=== PATIENT | female | born 1990 | race Caucasian/White ===

== ENCOUNTER 2019-03-01 00:01 | Emergency (ER) | payer MEDICAID, SELFPAY ==
[2019-03-01 00:18] VITALS: BP 143/91; PULSE 90; RESP 16; TEMP 36.8; BMI 28.3
== END 2019-03-01 01:09 | disposition home or self-care (01) ==
LOC: ER 00:52
PROVIDERS: Emergency Provider Emergency Medicine
DX: Z53.21 Procedure and treatment not carried out due to patient leaving prior to being seen by health care provider (principal)
CPT/HCPCS: 99281

== ENCOUNTER 2019-04-20 14:31 | Emergency (ER) | payer MEDICARE, MEDICAID, SELFPAY ==
[2019-04-20 14:48] VITALS: BP 115/99; PULSE 119; RESP 16; TEMP 37.6; O2SAT 99; BMI 32.1
[2019-04-20 15:13] LABS: Hematocrit 38.6 % (37.0-47.0); Hemoglobin 12.4 g/dL (11.5-15.3); Mean Corpuscular HGB Conc 32.1 g/dL (30.0-36.0); Mean Corpuscular Volume 87.1 fL (81-99); Mean Platelet Volume 10.5 fL (7.4-10.4); Platelet Count 194 10^3/cmm (130-400); Red Blood Count 4.43 10^6/uL (4.1-5.3); Red Cell Distribution Width 12.8 % (12.1-15.1); White Blood Count 9.5 10^3/uL (4.0-10.0)
[2019-04-20 15:32] LABS: Alanine Aminotransferase 25 U/L (0-33); Alkaline Phosphatase 82 IU/L (35-105); Anion Gap 16.8 (5-19); Aspartate Amino Transferase 17 U/L (0-32); Blood Urea Nitrogen 9 mg/dL (6-20); Calcium 9.7 mg/dL (8.5-10.5); Carbon Dioxide 22 mmol/L (22-29); Chloride 99 mmol/L (98-107); Globulin 3.4 g/dL (1.3-4.6); Glomerular Filtration Rate 97.6 mL/min (90-130); Glucose 121 mg/dL (65-115); Lipase 19 U/L (13-60); Potassium 3.8 mmol/L (3.5-5.1); Sodium 134 mmol/L (136-145); Total Bilirubin 0.2 mg/dL (0.15-1.2); Total Protein 7.4 g/dL (6.6-8.7)
[2019-04-20 15:42] LABS: Absolute Segmented Neutrophil 7.2 10/cmm (1.6-7.1); Lymphocytes 20 %; Monocytes Absolute 0.4 10^3/cmm (0.1-0.6); Platelet Estimate Normal (Normal); Segmented Neutrophils 76 %; Total Cells Counted 100 (0-100)
== END 2019-04-20 19:43 | disposition left against medical advice (07) ==
LOC: ER 15:04
PROVIDERS: Emergency Medicine; Emergency Provider Nurse Practitioner Family
DX: R10.9 Unspecified abdominal pain (principal); F17.200 Nicotine dependence, unspecified, uncomplicated; Z53.21 Procedure and treatment not carried out due to patient leaving prior to being seen by health care provider
CPT/HCPCS: 36415; 80053; 83690; 85007; 85027; 99281; 99285

== ENCOUNTER 2019-04-21 22:47 | Emergency (ER) | payer MEDICARE, MEDICAID, SELFPAY ==
[2019-04-21 22:47] VITALS: BP 157/105; PULSE 118; RESP 18; O2SAT 94
[2019-04-21 22:58] VITALS: BP 157/105; PULSE 123; RESP 18; O2SAT 18; BMI 30.2
--- NOTE | 2019-04-21 23:07 | ED_ITS ---
HPI - General Adult General: Chief complaint: Abdominal Pain Stated complaint: abd pain Time Seen by Provider: 04/21/19 22:55 History of Present Illness: HPI narrative: Patient complains about abdominal pain for the last month and a half. History of Crohn's. Possible history of blockage. She says last 3 days is been really bad. Says she is checked into the ER about 3 times in the left before being examined due to her social anxiety problems. MD complaint: Abdominal pain Onset (ago): week(s) Location: abdomen Severity: severe Severity scale (1-10): 8 Quality: aching Pain Consistency: constant Relieving factors: none Exacerbating factors: none Associated symptoms: Reports no associated symptoms; Deny chest pain, dyspnea, headache(s), nausea, rash or vomiting Review of Systems Const: Denies: fever, chills or body aches Eyes: Denies: change in vision or blurry vision ENMT: Denies: throat pain or nasal congestion Card: Denies: chest pain or shortness of breath on exertion Resp: Denies: shortness of breath, productive cough or non-productive cough GI: Reports: abdominal pain; Denies: nausea or vomiting Musc: Denies: extremity pain Skin/Breast: Denies: rash Neuro: Denies: headache Psych: Denies: anxiety or depression Nixon/Lymph: Denies: easy bruising PFSH ED PFSH: Social History Smoking and tobacco status: current every day smoker Physical Exam Const: COMMON NORMALS: no apparent distress, average body habitus and oriented x3 HENMT: COMMON NORMALS: normocephalic HEAD & SCALP: normal to inspection and normocephalic FACE & SINUS: normal facial exam Eye: COMMON NORMALS: conjunctivae normal GENERAL EYE: normal appearance of both eyes CONJUNCTIVA: Yes conjunctivae normal Neck/C-Spine: COMMON NORMALS: no JVD Chest: COMMONS NORMALS: inspection of chest normal Resp: COMMON NORMALS: normal respiratory effort and clear to auscultation bilaterally AUSCULTATION: clear to auscultation bilaterally Cardio: COMMON NORMALS: no JVD, regular rate and regular rhythm RATE: regular rate RHYTHM: regular rhythm GI: COMMON NORMALS: normal to inspection, nondistended, normoactive bowel sounds AUSCULTATION: Yes normoactive bowel sounds PALPATION: Yes tender Details: LUQ PERCUSSION: tympanic to percussion (Appears to be bloating) Extremity: COMMON NORMALS: normal to inspection and full ROM Neuro: COMMON NORMALS: oriented x3 Course Vital Signs: Vital signs: Vital Signs Pulse Rate 123 H 04/21/19 22:58 Respiratory Rate 18 04/21/19 22:58 Blood Pressure 157/105 04/21/19 22:58 Pulse Oximetry 18 L 04/21/19 22:58 Discharge Plan Discharge Prescriptions: No Action dicyclomine [Bentyl] 10 mg/mL Solution 10 mg IM TID RF: 0 hydrocodone-acetaminophen 5-325 mg Tablet 1 tab PO Q8H PRN (Reason: Pain) RF: 0 prednisone 20 mg Tablet 20 mg PO DAILY RF: 0 aripiprazole [Abilify] 10 mg Tablet 10 mg PO DAILY RF: 0 Viavans 70 mg PO DAILY RF: 0 alprazolam 1 mg tablet 1 mg PO QID RF: 0 Coding Level of Care Code ED Clinical Associate for Chg Fwd Exam Comprehensive
[2019-04-21 23:17] LABS: Basophils % 0.4 %; Eosinophils # 0.2 10^3/uL (0.0-0.8); Eosinophils % 2.7 %; Hemoglobin 11.7 g/dL (11.5-15.3); Lymphocytes # 1.9 10^3/uL (0.8-4.8); Lymphocytes % 25.8 %; Mean Corpuscular HGB Conc 33.4 g/dL (30.0-36.0); Mean Corpuscular Hemoglobin 27.9 pg (28.0-34.0); Mean Corpuscular Volume 83.3 fL (81-99); Mean Platelet Volume 10.3 fL (7.4-10.4); Monocytes # 0.8 10^3/uL (0.2-0.9); Monocytes % 10.4 %; Neutrophils # 4.5 10^3/uL (1.8-7.7); Neutrophils % 60.4 %; Nucleated Red Blood Cells % 0 %; Platelet Count 192 10^3/cmm (130-400); Red Cell Distribution Width 12.7 % (12.1-15.1); White Blood Count 7.5 10^3/uL (4.0-10.0)
--- NOTE | 2019-04-21 23:30 | PC.NURSE ---
Introduced self to patient and initiated vital signs. Patient presents A&O x 4. NAD, ABCs intact, MAEW and agreeable to treatment. Respirations are even and unlabored. Pt states that the chief complaint for the ER visit today is due to abdominal swelling and pain. Pt denies any vision disturbances or lightheadedness. Bed left in lowest position in semi-fowlers with side rails up.Reassured patient of needs and will continue to monitor.
[2019-04-21 23:33] LABS: Alanine Aminotransferase 58 U/L (0-33); Albumin Level 3.8 g/dL (3.5-5.2); Alkaline Phosphatase 83 IU/L (35-105); Anion Gap 15.8 (5-19); Aspartate Amino Transferase 29 U/L (0-32); Blood Urea Nitrogen 9 mg/dL (6-20); Calcium 9.5 mg/dL (8.5-10.5); Carbon Dioxide 22 mmol/L (22-29); Chloride 100 mmol/L (98-107); Creatinine Clr Calc Pharmacy 106.0879; Globulin 3.1 g/dL (1.3-4.6); Glomerular Filtration Rate 97.6 mL/min (90-130); Glucose 100 mg/dL (65-115); Lipase 17 U/L (13-60); Potassium 3.8 mmol/L (3.5-5.1); Sodium 134 mmol/L (136-145); Total Bilirubin 0.2 mg/dL (0.15-1.2); Total Protein 6.9 g/dL (6.6-8.7)
[2019-04-22 00:15] VITALS: BP 134/92; PULSE 122; O2SAT 97
--- NOTE | 2019-04-22 00:29 | CTR_ITS ---
PROCEDURE INFORMATION: Exam: CT Abdomen And Pelvis Without Contrast Exam date and time: 04/22/2019 12:47 AM Age: 29 years old Clinical indication: Bloating; Abdominal pain; Generalized; Prior surgery; Surgery date: 6+ months; Surgery type: Hysterectomy, appendectomy, laporoscopy; Additional info: Pain and bloating TECHNIQUE: Imaging protocol: Computed tomography of the abdomen and pelvis without contrast. Total DLP: 818.32 mGy-cm Radiation optimization: All CT scans at this facility use at least one of these dose optimization techniques: automated exposure control; mA and/or kV adjustment per patient size (includes targeted exams where dose is matched to clinical indication); or iterative reconstruction. COMPARISON: CT abdomen pelvis w con* [id number] 02/08/2019 10:12 PM FINDINGS: Liver: Continued presence of 2 subcentimeter foci of decreased density in the lateral right lobe of the liver. Gallbladder and bile ducts: Still no calcified stones. No ductal dilation. Pancreas: No suggestion of interval pancreatic disease. Spleen: Still no splenomegaly. Adrenals: Still no adrenal mass. Kidneys and ureters: Still no hydronephrosis. Stomach and bowel: Interval elongation of the sigmoid colon into the left mid abdomen. Interval disappearance of the dilatation of inferior small bowel loops and of air-fluid levels from the distal small bowel as well as the right and left colon. No bowel obstruction or suggestion of thickening of wall thickening. Appendix: Appendectomy again evident. Intraperitoneal space: No free air. Continued minimal free fluid in the posterior inferior pelvis. Vasculature: Continued mild bilateral ovarian varices. Still no aortic aneurysm. Lymph nodes: Continued slight enlargement of multiple mesenteric nodes. No apparent interval adenopathy. Bladder: Unremarkable as visualized. Reproductive: Hysterectomy again evident. Bones/joints: Continued old slight compression fractures and slight degeneration of a few discs. No acute fracture. Soft tissues: Unremarkable. CT/CT abdomen pelvis wo con [id number] IMPRESSION: 1. No acute findings. Continued slight mesenteric adenopathy. Minimal free fluid in the pelvis again evident. 2. Interval disappearance of the inferior small bowel dilatation and of air-fluid levels from the distal small bowel as well as the right and left colon. 3. Continued mild bilateral ovarian varices. Other findings detailed above. Radiation Dose CTDIVOL = (mGy): DLP = 818.32 (mGy-cm)
[2019-04-22 01:00] VITALS: BP 134/92; PULSE 114; RESP 16; O2SAT 94
[2019-04-22 01:09] LABS: Urine Appearance SL Hazy (CLEAR); Urine Color Yellow (Yellow); pH Urine 5 (5-7)
[2019-04-22 01:10] LABS: Add Urine Microscopic? YES; Bilirubin Urine Neg (NEGATIVE); Blood Urine 2+ (Negative); Ketones Urine Negative (Negative); Leukocyte Esterase Urine Negative (Negative); Nitrate Urine Positive (Negative); Protein Urine 1+ (Negative); Urobilinogen Urine Norm (Negative)
[2019-04-22 01:13] LABS: Add Urine Culture? No; Bacteria Urine 2+; Squamous Epithelial Cell Urine 15-25 (0-5); WBC Urine 25-40 /hpf (0-5)
[2019-04-22 01:24] VITALS: RESP 16
[2019-04-22] MEDS: morphine 4 mg/mL SDV 1 mL IVP (01:24)
[2019-04-22] MEDS: sodium chloride 0.9% 1,000 ML 999 ML IV (01:25)
[2019-04-22 03:11] VITALS: BP 128/82; PULSE 80; RESP 16; O2SAT 98
== END 2019-04-22 03:13 | disposition home or self-care (01) ==
PROVIDERS: Emergency Provider Nurse Practitioner Family
DX: R10.9 Unspecified abdominal pain (principal); K50.90 Crohn's disease, unspecified, without complications; F17.200 Nicotine dependence, unspecified, uncomplicated
CPT/HCPCS: 74176; 80053; 81001; 83690; 85025; 96361; 96374; 96375; 99283; J2270; J2930; J7030

== ENCOUNTER 2019-07-15 16:19 | Outpatient (CLI) | payer MEDICARE, MEDICAID, SELFPAY ==
--- NOTE | 2019-07-15 16:58 | XRR_ITS ---
PROCEDURE INFORMATION: Exam: XR Skull, Minimum of 4 Views, Complete Exam date and time: 07/15/2019 4:59 PM Age: 29 years old Clinical indication: Pain; Headache; Additional info: Headaches due to old trauma TECHNIQUE: Imaging protocol: XR of the skull, minimum of 4 views. Complete exam. COMPARISON: CT head wo con* [id number] 07/13/2018 6:42 PM FINDINGS: Sinuses: Well aerated. No opacification. Bones/joints: No fracture. Soft tissues: Unremarkable. XR/XR skull min 4V* [id number] IMPRESSION: Unremarkable.
== END 2019-07-15 16:20 | disposition home or self-care (01) ==
LOC: RAD 16:24
PROVIDERS: PCP Nurse Practitioner; Visit Provider Nurse Practitioner
DX: G44.309 Post-traumatic headache, unspecified, not intractable (principal)
CPT/HCPCS: 70260

== ENCOUNTER 2019-08-14 13:54 | Inpatient (IN) | payer MEDICARE, MEDICAID, SELFPAY ==
[2019-08-14] VITALS (15 sets, daily range): BP systolic 110–151; BP diastolic 68–104; PULSE 75–95; RESP 16–25; TEMP 36.6–36.8; O2SAT 96–100; BMI 30.2
--- NOTE | 2019-08-14 14:24 | ECG_ITS ---
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 Measurements Intervals Edon Rate: 82 P: 53 SD: 130 QRS: 35 QRSD: 88 T: 32 QT: 405 QTc: 474 Interpretive Statements SINUS RHYTHM POSSIBLE RIGHT VENTRICULAR CONDUCTION DELAY [RSR (QR) IN V1/V2] NONSPECIFIC T-WAVE ABNORMALITY No previous ECG available for comparison Electronically Signed On 08-15-2019 18:30:33 CDT by Altagracia Nieves M.D. [id number]
--- NOTE | 2019-08-14 14:55 | ED_ITS ---
HPI - Overdose General: Chief Complaint: Overdose Stated Complaint: od Time Seen by Provider: 08/14/19 14:00 Source: patient and EMS Mode of arrival: EMS Limitations: no limitations History of Present Illness: HPI Narrative: This is a 29 year old female patient who has metastatic lung cancer. she states that she is depressed and she feels no one believes her that she is not feeling well. She is also realizing that she may be terminal. She feels her boyfriend is not treating her with seriousness. She therefore took 87 tablets of lexapro 20 mg pills in a suicide attempt. She is very tearful. She did not want to come to the ED but was brought in by her boyfriend. The patient does not want to be admitted because she wants to go to her father's graveside today, father's day. She ingested the medication around 1300 hours Review of Systems General: Reports: 10 or more systems reviewed and unremarkable except in HPI and below Const: Denies: fever(s), chills or body aches Eyes: Denies: change in vision or blurry vision ENMT: Denies: throat pain, enlarged tonsils, odynophagia, hoarseness, mouth pain or swelling of lips/tongue Card: Denies: palpitations, irregular heart rhythm, edema or swelling of feet/ankles Resp: Denies: dyspnea, productive cough or non-productive cough GI: Denies: abdominal pain, nausea or vomiting : Denies: flank pain, difficulty voiding, dysuria, urinary frequency, urinary urgency or urinary hesitancy Musc: Denies: neck pain, back pain or extremity swelling Skin/Breast: Denies: rash, pruritus or erythema Neuro: Denies: headache(s), numbness in extremities or weakness in extremities Psych: Reports: depression and mood swings Endo: Denies: polyuria, polydipsia or tired all the time [facility] ED PFSH: Medical History (Updated 08/14/19 @ 18:21 by Ginette Zaragoza MD, [facility] [place]) Anxiety and depression Asthma Crohn's disease Irritable bowel syndrome Metastatic cancer Obesity PTSD (post-traumatic stress disorder) Seizure disorder Surgical History H/O adenoidectomy H/O: hysterectomy History of appendectomy History of tonsillectomy Family History (Updated 08/14/19 @ 16:37 by Molly Alcantar MD) Other Cancer Social History (Updated 08/14/19 @ 16:38 by Molly Alcantar MD) Smoking and tobacco status: current every day smoker Substance/Drug Use: current Substance/Drug use type: Marijuana Physical Exam Const: COMMON NORMALS: no acute distress, average body habitus, patient oriented x3, no limitations, healthy appearing, alert and well nourished HENMT: COMMON NORMALS: normocephalic, atraumatic and moist oral mucous membranes HEAD & SCALP: normocephalic and atraumatic Neck/C-Spine: COMMON NORMALS: no meningeal signs and no JVD Resp: COMMON NORMALS: normal respiratory effort, No retractions, No use of accessory muscles, clear to auscultation bilaterally and percussion normal AUSCULTATION: clear to auscultation bilaterally PERCUSSION: percussion normal Cardio: COMMON NORMALS: no JVD, regular rate, regular rhythm, S1 normal heart sound present, S2 normal heart sound present, No gallops present (Cardio), No clicks present (Cardio), No murmurs present (Cardio), No rub (Cardio) and Peripheral pulses 2+ throughout RATE: regular rate RHYTHM: regular rhythm HEART SOUNDS: S1 normal heart sound present and S2 normal heart sound present PERIPHERAL PULSES: Peripheral pulses 2+ throughout GI: COMMON NORMALS: Normal to inspection, nondistended, normoactive bowel sounds present, Soft to palpation, non-tender, No hepatosplenomegaly present, no masses and no bruits PALPATION: Yes Soft to palpation and Yes No hepatosplenomegaly present : COMMON NORMALS: Yes no CVA tenderness BLADDER/KIDNEY EXAM: Yes no CVA tenderness Back/Pelvis: COMMON NORMALS: no CVA tenderness Extremity: COMMON NORMALS: normal to inspection, full ROM, capillary refill normal, no calf tenderness and no pedal edema Neuro: COMMON NORMALS: patient oriented x3 SENSORIUM/ORIENTATION: Yes alert MENINGEAL SIGNS: Yes no meningeal signs Psych: COMMON NORMALS: mental status grossly normal ATTITUDE: Yes evasive and Yes agitated ACTIVITY/MOTOR BEHAVIOR: Yes appropriate eye contact Skin: COMMON NORMALS: no rashes or lesions noted, no wounds, turgor normal, no jaundice, no petechiae and no mottling GENERAL SKIN EXAM: no rashes or lesions noted and turgor normal Course Consultations: Consultation #1: Dr. Alcantar, hospitalist. She kindly accepted the patient to her service. Vital Signs: Vital signs: Vital Signs Temperature 98.3 F 08/14/19 13:57 Pulse Rate 75 08/14/19 17:50 Respiratory Rate 16 08/14/19 17:50 Blood Pressure 145/85 08/14/19 17:50 Pulse Oximetry 98 08/14/19 17:50 MDM - Overdose MDM Narrative: Medical decision making narrative: 29-year-old female patient who presented to the emergency department after an intentional overdose of Lexapro. She claims she took 87 pills of the 20 mg tablets. Uncertain if this is true. She also states that she has metastatic cancer although the patient is healthy looking and does not appear as one with malignancy. Patient was alert and oriented throughout her ED stay although was a little agitated. Evaluation in the ED was unremarkable and she is admitted to the ICU for observation and will be sent to the neuropsychiatric unit after that. She was placed on a 96-hour hold. Lab Data: Labs: Lab Results 08/14/19 08/14/19 08/14/19 Range/Units 15:03 15:03 15:03 WBC 9.6 (4.0-10.0) 10^3/ uL RBC 4.66 (4.1-5.3) 10^6/u L Hgb 12.6 (11.5-15.3) g/dL Hct 40.0 (37.0-47.0) % MCV 85.8 (81-99) fL MCH 27.0 L (28.0-34.0) pg MCHC 31.5 (30.0-36.0) g/dL RDW 13.1 (12.1-15.1) % Plt Count 282 (130-400) 10^3/c mm MPV 10.4 (7.4-10.4) fL Neut % (Auto) 66.6 % Lymph % (Auto) 26.7 % Saunders % (Auto) 6.0 % Eos % (Auto) 0.0 % Baso % (Auto) 0.5 % Neut # (Auto) 6.4 (1.8-7.7) 10^3/u L Lymph # (Auto) 2.6 (0.8-4.8) 10^3/u L Saunders # (Auto) 0.6 (0.2-0.9) 10^3/u L Eos # (Auto) 0.0 (0.0-0.8) 10^3/u L Baso # (Auto) 0.1 (0.0-0.1) 10^3/u L Nucleated RBC % (a uto) 0 % Nucleated RBCs # 0.0 /100WBC Sodium 139 (136-145) mmol/L Potassium 4.1 (3.5-5.1) mmol/L Chloride 101 (98-107) mmol/L Carbon Dioxide 24 (22-29) mmol/L Anion Gap 18.1 (5-19) BUN 10 (6-20) mg/dL Creatinine 0.7 (0.5-0.9) mg/dL GFR Calculation 97.6 (90-130) mL/min Glucose 84 (65-115) mg/dL Calculated Osmolal ity 283 L (285-295) mOsm/k g Calcium 10.0 (8.5-10.5) mg/dL Magnesium 1.9 (1.7-2.3) mg/dL Total Bilirubin 0.2 (0.15-1.2) mg/dL AST 16 (0-32) U/L ALT 15 (0-33) U/L Alkaline Phosphata se 85 (35-105) IU/L Total Protein 8.0 (6.6-8.7) g/dL Albumin 4.4 (3.5-5.2) g/dL Globulin 3.6 (1.3-4.6) g/dL HCG, Qual (Negative) Urine Color (Yellow) Urine Appearance (CLEAR) Urine pH (5-7) Ur Specific Gravit y (1.005-1.030) Urine Protein (Negative) Urine Glucose (UA) (Normal) Urine Ketones (Negative) Urine Blood (Negative) Urine Nitrate (Negative) Urine Bilirubin (NEGATIVE) Urine Urobilinogen (Negative) mg/dL Ur Leukocyte Evelia ase (Negative) Urine RBC (0-2) /hpf Urine WBC (0-5) /hpf Ur Squamous Epith Cells (0-5) Urine Bacteria (NONE) Salicylates < 0.3 L (3-10) mg/dL Urine Opiates Scre en (Negative) ng/mL Acetaminophen < 5.0 L (10-30) ug/mL Ur Barbiturates Sc reen (Negative) ng/mL Ur Phencyclidine S crn (Negative) ng/mL Ur Amphetamines Sc reen (Negative) ng/mL U Benzodiazepines Scrn (Negative) ng/mL Urine Cocaine Scre en (Negative) ng/mL U Marijuana (THC) Screen (Negative) ng/mL Ethyl Alcohol 14 H (0-10) mg/dL 08/14/19 08/14/19 08/14/19 Range/Units 16:30 16:30 16:30 WBC (4.0-10.0) 10^3/ uL RBC (4.1-5.3) 10^6/u L Hgb (11.5-15.3) g/dL Hct (37.0-47.0) % MCV (81-99) fL MCH (28.0-34.0) pg MCHC (30.0-36.0) g/dL RDW (12.1-15.1) % Plt Count (130-400) 10^3/c mm MPV (7.4-10.4) fL Neut % (Auto) % Lymph % (Auto) % Saunders % (Auto) % Eos % (Auto) % Baso % (Auto) % Neut # (Auto) (1.8-7.7) 10^3/u L Lymph # (Auto) (0.8-4.8) 10^3/u L Saunders # (Auto) (0.2-0.9) 10^3/u L Eos # (Auto) (0.0-0.8) 10^3/u L Baso # (Auto) (0.0-0.1) 10^3/u L Nucleated RBC % (a uto) % Nucleated RBCs # /100WBC Sodium (136-145) mmol/L Potassium (3.5-5.1) mmol/L Chloride (98-107) mmol/L Carbon Dioxide (22-29) mmol/L Anion Gap (5-19) BUN (6-20) mg/dL Creatinine (0.5-0.9) mg/dL GFR Calculation (90-130) mL/min Glucose (65-115) mg/dL Calculated Osmolal ity (285-295) mOsm/k g Calcium (8.5-10.5) mg/dL Magnesium (1.7-2.3) mg/dL Total Bilirubin (0.15-1.2) mg/dL AST (0-32) U/L ALT (0-33) U/L Alkaline Phosphata se (35-105) IU/L Total Protein (6.6-8.7) g/dL Albumin (3.5-5.2) g/dL Globulin (1.3-4.6) g/dL HCG, Qual Negative (Negative) Urine Color Yellow (Yellow) Urine Appearance Sl hazy (CLEAR) Urine pH 7 (5-7) Ur Specific Gravit y 1.010 (1.005-1.030) Urine Protein Neg (Negative) Urine Glucose (UA) Norm (Normal) Urine Ketones Negative (Negative) Urine Blood 2+ H (Negative) Urine Nitrate Positive H (Negative) Urine Bilirubin Neg (NEGATIVE) Urine Urobilinogen Norm (Negative) mg/dL Ur Leukocyte Evelia ase Negative (Negative) Urine RBC 0-4 H (0-2) /hpf Urine WBC 5-10 H (0-5) /hpf Ur Squamous Epith Cells 0-4 H (0-5) Urine Bacteria 3+ H (NONE) Salicylates (3-10) mg/dL Urine Opiates Scre en Negative (Negative) ng/mL Acetaminophen (10-30) ug/mL Ur Barbiturates Sc reen Negative (Negative) ng/mL Ur Phencyclidine S crn Negative (Negative) ng/mL Ur Amphetamines Sc reen Positive H (Negative) ng/mL U Benzodiazepines Scrn Negative (Negative) ng/mL Urine Cocaine Scre en Negative (Negative) ng/mL U Marijuana (THC) Screen Positive H (Negative) ng/mL Ethyl Alcohol (0-10) mg/dL EKG Data^: EKG 1: Attestation: I personally reviewed and interpreted this EKG as follows: EKG interpretation date: 08/14/19 Prior EKG tracings: not available for review Interpretation: Normal sinus rhythm with short [place] interval. Heart rate 85 bpm. Right ventricular conduction delay. No ST changes. Discharge Plan Discharge Patient Disposition: Admitted As Inpatient Admit Provider: Molly Aclantar Clinical Impression: Suicide attempt by drug overdose Condition: Stable Interventions: ED Discharge Assessment Last Done: 08/14/19 17:50 ED Charges Last Done: 08/14/19 17:50 Discharge Date/Time: 08/14/19 17:51 Coding Level of Care Code ED Floor Installer for Chg Fwd Exam Comprehensive
[2019-08-14] MEDS: metoclopramide 5 mg/mL SDV 2 mL 10 MG IVP (15:11)
[2019-08-14 15:14] LABS: Basophils # 0.1 10^3/uL (0.0-0.1); Basophils % 0.5 %; Hemoglobin 12.6 g/dL (11.5-15.3); Lymphocytes # 2.6 10^3/uL (0.8-4.8); Lymphocytes % 26.7 %; Mean Corpuscular HGB Conc 31.5 g/dL (30.0-36.0); Mean Corpuscular Volume 85.8 fL (81-99); Mean Platelet Volume 10.4 fL (7.4-10.4); Monocytes # 0.6 10^3/uL (0.2-0.9); Neutrophils # 6.4 10^3/uL (1.8-7.7); Neutrophils % 66.6 %; Nucleated Red Blood Cells % 0 %; Platelet Count 282 10^3/cmm (130-400); Red Blood Count 4.66 10^6/uL (4.1-5.3); Red Cell Distribution Width 13.1 % (12.1-15.1); White Blood Count 9.6 10^3/uL (4.0-10.0)
[2019-08-14 15:28] LABS: Alanine Aminotransferase 15 U/L (0-33); Albumin Level 4.4 g/dL (3.5-5.2); Alcohol Level 14 mg/dL (0-10); Alkaline Phosphatase 85 IU/L (35-105); Anion Gap 18.1 (5-19); Aspartate Amino Transferase 16 U/L (0-32); Blood Urea Nitrogen 10 mg/dL (6-20); Carbon Dioxide 24 mmol/L (22-29); Chloride 101 mmol/L (98-107); Creatinine Clr Calc Pharmacy 106.0879; Globulin 3.6 g/dL (1.3-4.6); Glomerular Filtration Rate 97.6 mL/min (90-130); Glucose 84 mg/dL (65-115); Osmolality Calculated 283 mOsm/kg (285-295); Potassium 4.1 mmol/L (3.5-5.1); Sodium 139 mmol/L (136-145); Total Bilirubin 0.2 mg/dL (0.15-1.2)
[2019-08-14 15:39] LABS: Magnesium 1.9 mg/dL (1.7-2.3); Salicylate < 0.3 mg/dL (3-10)
[2019-08-14 15:40] LABS: Acetaminophen < 5.0 ug/mL (10-30)
--- NOTE | 2019-08-14 16:29 | PM.HP ---
Providers/Chief Complaint Admitting Physician: Molly Alcantar MD Primary Care Provider: Kelley Kat APN Chief Complaint: Intentional drug overdose History of Present Illness Zuleyma Bryant is a 29 year old female with PMHx of Crohn's disease, Chronic smoker, Seizure disorder, reported history of metastatic cancer presents accompanied by her boyfriend due to intentional drug overdose. She reports taking a whole bottle of Lexapro though is unable to quantify exactly how many tabs she took, at approximately 1300 this afternoon. Boyfriend who is currently at bedside states that he saw her do this and patient states that she has been feeling increasingly depressed and overwhelmed by her cancer diagnosis there was unwilling to provide further information on this when questioned further. Patient is known to me from previous admission in January 2019 during which time she had been admitted for an acute Crohn's flare then left AMA. Salicylates, acetaminophen are both negative, alcohol is mildly elevated at 14; UDS and UA are pending. CBC and chemistry are unremarkable, she is normotensive, afebrile, on room air. She is somnolent though able to provide some information. Sitter is at the bedside. 96-hour paperwork is pending completion by ER physician. Patient will be admitted to ICU for further monitoring including telemetry monitoring for QTC prolongation, GI effects and need for 96-hour hold. Review of Systems General: Reports: ROS unobtainable due to mental status Neuro: Reports: confusion Psych: Reports: depression and difficulty concentrating Medications/Allergies Home Medications Medication Instructions Recorded Confirmed Last Taken Type Viavans 70 mg PO DAILY 03/01/19 08/14/19 04/21/19 History alprazolam 1 mg PO QID 03/01/19 08/14/19 04/21/19 History aripiprazole [Abilify] 10 mg PO DAILY 03/01/19 08/14/19 04/21/19 History dicyclomine [Bentyl] 10 mg IM TID 03/01/19 08/14/19 04/21/19 History prednisone 20 mg PO DAILY 03/01/19 08/14/19 04/21/19 History amlodipine 5 mg PO DAILY 08/14/19 08/14/19 Unknown History escitalopram oxalate 20 mg PO DAILY 06/21/20 06/21/20 06/21/20 History topiramate 50 mg PO DAILY 08/14/19 08/14/19 Unknown History trazodone 150 mg PO BEDTIME 08/14/19 08/14/19 Unknown History Allergies Allergy/AdvReac Type Severity Reaction Status Date / Time codeine Allergy ALGY-Anaphy Verified 08/14/19 16:27 laxis promethazine Allergy ALGY-Redness Verified 08/14/19 16:27 of Skin tramadol Allergy ADR-Seizure Verified 08/14/19 16:27 PFSH Acute PFSH: Medical History (Updated 08/14/19 @ 16:45 by Molly Alcantar MD) Anxiety and depression Asthma Crohn's disease Irritable bowel syndrome Metastatic cancer Obesity PTSD (post-traumatic stress disorder) Seizure disorder Surgical History H/O adenoidectomy H/O: hysterectomy History of appendectomy History of tonsillectomy Family History (Updated 08/14/19 @ 16:37 by Molly Alcantar MD) Other Cancer Social History (Updated 08/14/19 @ 16:38 by Molly Alcantar MD) Smoking and tobacco status: current every day smoker Substance/Drug Use: current Substance/Drug use type: Marijuana Vitals/I&O/Wt Last Vital Signs Temp 98.3 F 08/14/19 13:57 Pulse 78 08/14/19 15:50 Resp 16 08/14/19 15:50 BP 169/104 08/14/19 15:50 Pulse Ox 96 08/14/19 15:50 Weight last 48 hrs Weight 72.575 kg Physical Exam Narrative: EXAM NARRATIVE: -declined examination Const: NUTRITIONAL APPEARANCE: obese ORIENTATION/CONSCIOUSNESS: Yes lethargic HENMT: COMMON NORMALS: normocephalic and hearing grossly normal bilaterally HEAD & SCALP: normal to inspection Chest: CHEST: Yes Symmetrical chest wall rise GI: INSPECTION: Yes central obesity Neuro: SENSORIUM/ORIENTATION: Yes somnolent Data : 08/14/19 15:03 08/14/19 15:03 A&P Assessment and plan (1) Overdose: -intentional medication overdose, reportedly took an entire bottle of Lexapro, unclear quantity -96 hr hold paperwork to be completed by ED -1:1 sitter -pending UA, UDS, negative salicylates/acetaminophen; EtOH-14 -telemetry monitoring; monitor for QTc prolongation -per Poison Control, peak is 6 hrs post-ingestion (took meds around 1300) -monitor for GI effects -antiemetics PRN -keep NPO -Psych to evaluate once medically stable -fall, seizure, aspiration precautions -monitor vital signs -supplemental oxygen if needed Status: Acute Qualifiers: Encounter type: initial encounter Injury intent: intentional self-harm Qualified Code(s): T50.902A - Poisoning by unspecified drugs, medicaments and biological substances, intentional self-harm, initial encounter (2) Metastatic cancer: -reported hx of metastatic cancer, unwilling to answer further questions about this Status: Chronic (3) Obesity: -BMI-30 kg/m2 Status: Chronic Qualifiers: Obesity type: due to excess calories Obesity classification: adult class 1 (BMI 30 - 34.9) Serious obesity comorbidity presence: without serious comorbidity Body mass index: BMI 30.0-30.9 Qualified Code(s): E66.09 - Other obesity due to excess calories; Z68.30 - Body mass index (BMI) 30.0-30.9, adult (4) Irritable bowel syndrome: Status: Chronic Qualifiers: Irritable bowel syndrome type: unspecified Qualified Code(s): K58.9 - Irritable bowel syndrome without diarrhea (5) Asthma: Status: Chronic Qualifiers: Asthma severity: unspecified severity Asthma persistence: unspecified Asthma complication type: unspecified Qualified Code(s): J45.909 - Unspecified asthma, uncomplicated (6) Seizure disorder: Status: Chronic (7) Anxiety and depression: Status: Chronic (8) PTSD (post-traumatic stress disorder): Status: Chronic (9) Crohn's disease: -has had prior abdominal surgeries including appendectomy, adhesion lysis Status: Chronic Qualifiers: Gastrointestinal tract location: unspecified location Digestive disease complication type: unspecified complication Qualified Code(s): K50.919 - Crohn's disease, unspecified, with unspecified complications Additional A&P Information -NPO for now -low risk for DVT, no need for ppx -Dispo: per Psych -Code status: FULL code -ICU admission due to 96 hr hold Attestations Medical Necessity Statement*: Zuleyma Bryant's hospital stay will require greater than 2 midnights for management post intentional drug overdose requiring monitoring of hemodynamic status, telemetry, on 96-hour hold. Time Spent in Patient Care: Greater than 35 minutes (>than 50% of time spent in counselling and/or direct pt care on unit). Coding Level of Care Code Acute Supervisor [employer] for [employer] F[facility] Diagnoses Overdose T50.902A Encounter type: initial encounter Injury intent: intentional self-harm Metastatic cancer C79.9 Obesity E66.09; Z68.30 Obesity type: due to excess calories Obesity classification: adult class 1 (BMI 30 - 34.9) Serious obesity comorbidity presence: without serious comorbidity Body mass index: BMI 30.0-30.9 Irritable bowel syndrome K58.9 Irritable bowel syndrome type: unspecified Asthma J45.909 Asthma severity: unspecified severity Asthma persistence: unspecified Asthma complication type: unspecified Seizure disorder G40.909 Anxiety and depression F41.9; F32.9 PTSD (post-traumatic stress disorder) F43.10 Crohn's disease K50.919 Gastrointestinal tract location: unspecified location Digestive disease complication type: unspecified complication
[2019-08-14 16:47] LABS: Add Urine Microscopic? YES; Bilirubin Urine Neg (NEGATIVE); Blood Urine 2+ (Negative); Glucose Urine UA Norm (Normal); Ketones Urine Negative (Negative); Leukocyte Esterase Urine Negative (Negative); Nitrate Urine Positive (Negative); Protein Urine Neg (Negative); Urine Appearance SL Hazy (CLEAR); Urine Color Yellow (Yellow); Urobilinogen Urine Norm (Negative); pH Urine 7 (5-7)
[2019-08-14 16:48] LABS: Add Urine Culture? Yes; Bacteria Urine 3+; RBC Urine 0-4 /hpf (0-2); Squamous Epithelial Cell Urine 0-4 (0-5)
[2019-08-14 16:50] LABS: Amphetamines Screen Urine Positive (Negative); Barbiturates Screen Urine Negative (Negative); Benzodiazepines Screen Urine Negative (Negative); Cocaine Screen Urine Negative (Negative); Opiate Screen Urine Negative (Negative); PCP Screen Urine Negative (Negative); THC Screen Urine Positive (Negative)
[2019-08-14 16:57] LABS: HCG Qualitative Urine. Negative (Negative)
--- NOTE | 2019-08-14 17:02 | PC.NURSE ---
Read and agree with assessment
--- NOTE | 2019-08-14 17:15 | PC.NURSE ---
Attempted to call report immediately after room assignment. Nurse refused report at this time. Was told nurse would call back when they were ready for report.
[2019-08-14] MEDS: sodium chloride 0.9% 1,000 ML 75 ML IV (18:10)
--- NOTE | 2019-08-14 18:40 | PC.NURSE ---
PATIENT IRRITATED BY DARNELL HER ER NURSE STATING THE LUNG CANCER WAS FALSE IT WAS THAT SHE HAS BRAIN CANCER.
[2019-08-15] VITALS (15 sets, daily range): BP systolic 117–140; BP diastolic 79–110; PULSE 70–88; RESP 12–20; TEMP 36.3–37.2; O2SAT 95–99
--- NOTE | 2019-08-15 06:15 | PC.NURSE ---
Shift Summary Patient rested well through the night. Sitter at bedside. Patient stated around 0200, she was hungry. Educated patient that she is NPO. Verbalized understanding. Afebrile and VSS through the night. up to bsc with staff. tolerated well. No s/s of OD reaction.
[2019-08-15] MEDS: sodium chloride 0.9% 1,000 ML 75 ML IV (06:18)
[2019-08-15] MEDS: amlodipine 5 mg Tablet PO (08:33)
[2019-08-15] MEDS: cefUROXime 250 mg Tablet PO ×2 (08:43→18:28)
--- NOTE | 2019-08-15 09:30 | P.PN_ITS ---
Subjective Subjective: Interval history: No acute overnight events, sitter at bedside, hemodynamically stable, afebrile, no N/V, no need for antiemetics. Will start on diet, d/c IVF. Noted UA and UDS results. Patient easily arousable though sleepy, is alert and oriented, tolerated diet without difficulty. Briefly discussed case with syed Ho for transfer to NPU. Medications: Reviewed: Yes Medication Review Details: Active Medications Generic Name Dose Route Start Last Admin Trade Name Freq PRN Reason Stop Dose Admin Acetaminophen 650 mg 08/14/19 17:34 Tylenol PO Q6H PRN MILD PAIN Amlodipine Besylat e 5 mg 08/15/19 09:00 08/15/19 08:33 Norvasc PO 5 mg DAILY MATTHIAS Administration Cefuroxime Axetil 250 mg 08/15/19 09:00 08/15/19 08:43 Ceftin PO 250 mg BID MATTHIAS Administration Protocol Lorazepam 1 mg 08/14/19 17:34 Ativan IVP Q6H PRN ANXIETY Ondansetron HCl 4 mg 08/14/19 17:34 Zofran IVP Q6H PRN NAUSEA AND VOMITI NG codeine Allergy (Verified 08/14/19 16:27) ALGY-Anaphylaxis promethazine Allergy (Verified 08/14/19 16:27) ALGY-Redness of Skin tramadol Allergy (Verified 08/14/19 16:27) ADR-Seizure Vitals/I&O/Wt Last Vital Signs Temp 98.5 F 08/15/19 08:00 Pulse 75 08/15/19 08:00 Resp 12 08/15/19 08:00 BP 136/100 08/15/19 08:00 Pulse Ox 98 08/15/19 08:00 08/14/19 08/15/19 08/15/19 22:59 06:59 14:59 Intake Total 910 / 910 Output Total 350 / 350 450 / 800 Balance -350 / -350 460 / 110 Weight last 48 hrs Weight 69.853 kg Weight 72.575 kg Physical Exam Const: COMMON NORMALS: no acute distress and patient oriented x3 NUTRITIONAL APPEARANCE: obese HENMT: COMMON NORMALS: normocephalic and hearing grossly normal bilaterally HEAD & SCALP: normal to inspection and normocephalic Chest: CHEST: Yes Symmetrical chest wall rise Resp: COMMON NORMALS: normal respiratory effort, No retractions, No use of accessory muscles and clear to auscultation bilaterally EFFORT & INSPECTION: Yes able to speak in complete sentences and Yes symmetric chest movement AUSCULTATION: clear to auscultation bilaterally OTHER: -on RA Cardio: COMMON NORMALS: regular rate, regular rhythm, S1 normal heart sound present and S2 normal heart sound present RATE: regular rate RHYTHM: regular rhythm HEART SOUNDS: S1 normal heart sound present and S2 normal heart sound present GI: COMMON NORMALS: Normal to inspection, nondistended, normoactive bowel sounds present, Soft to palpation and non-tender INSPECTION: Yes central obesity PALPATION: Yes Soft to palpation Extremity: COMMON NORMALS: normal to inspection, no clubbing, cyanosis or edema and no pedal edema Neuro: COMMON NORMALS: patient oriented x3 SENSORIUM/ORIENTATION: Yes somnolent (though easily arousable) Psych: COMMON NORMALS: speech normal ATTITUDE: Yes calm ACTIVITY/MOTOR BEHAVIOR: Yes appropriate eye contact SPEECH: Yes normal speech MOOD & AFFECT: Yes Blunted affect present Skin: COMMON NORMALS: no rashes or lesions noted and no mottling GENERAL SKIN EXAM: no rashes or lesions noted Data : 08/14/19 15:03 08/14/19 15:03 A&P Assessment and plan (1) Overdose: -intentional medication overdose, reportedly took an entire bottle of Jimmie apro, unclear quantity -96 hr hold paperwork completed by ED -1:1 sitter -UDS positive for THC and amphetamines, negative salicylates/acetaminophen; EtOH-14 -telemetry monitoring; monitor for QTc prolongation -per Poison Control, peak is 6 hrs post-ingestion (took meds around 1300) -monitor for GI effects; none so far -antiemetics PRN -start on regular diet -fall, seizure, aspiration precautions -VSS; continue to monitor -supplemental oxygen if needed -UA indicative of infection, start on ceftin x 10 days Status: Acute Qualifiers: Encounter type: initial encounter Injury intent: intentional self-harm Qualified Code(s): T50.902A - Poisoning by unspecified drugs, medicaments and biological substances, intentional self-harm, initial encounter (2) Metastatic cancer: -reported hx of metastatic cancer, unwilling to answer further questions about this Status: Chronic (3) Obesity: -BMI-30 kg/m2 Status: Chronic Qualifiers: Body mass index: BMI 30.0-30.9 Obesity classification: adult class 1 (BMI 30 - 34.9) Obesity type: due to excess calories Serious obesity comorbidity presence: without serious comorbidity Qualified Code(s): E66.09 - Other obesity due to excess calories; Z68.30 - Body mass index (BMI) 30.0-30.9, adult (4) Irritable bowel syndrome: Status: Chronic Qualifiers: Irritable bowel syndrome type: unspecified Qualified Code(s): K58.9 - Irritable bowel syndrome without diarrhea (5) Asthma: Status: Chronic Qualifiers: Asthma complication type: unspecified Asthma persistence: unspecified Asthma severity: unspecified severity Qualified Code(s): J45.909 - Unspecified asthma, uncomplicated (6) Seizure disorder: Status: Chronic (7) Anxiety and depression: Status: Chronic (8) PTSD (post-traumatic stress disorder): Status: Chronic (9) Crohn's disease: -has had prior abdominal surgeries including appendectomy, adhesion lysis Status: Chronic Qualifiers: Digestive disease complication type: unspecified complication Gastrointestinal tract location: unspecified location Qualified Code(s): K50.919 - Crohn's disease, unspecified, with unspecified complications Additional A&P Information -regular diet as tolerated -low risk for DVT, no need for ppx -Dispo: per Psych -Code status: FULL code -transfer to Psych on 96 hr hold Attestations Medical Necessity Statement*: Patient requires hospitalization following intentional medication overdose, on 96 hr hold, needs psychiatric care, transfer to NPU. Time Spent in Patient Care: 16 - 35 minutes (>than 50% of time spent in counselling and/or direct pt care on unit) . Coding Level of Care Code Acute Nursing Program Coordinator for [facility] Fwd Exam Detailed Diagnoses Overdose T50.902O Encounter type: initial encounter Injury intent: intentional self-harm Metastatic cancer C79.9 Obesity E66.09; Z68.30 Body mass index: BMI 30.0-30.9 Obesity classification: adult class 1 (BMI 30 - 34.9) Obesity type: due to excess calories Serious obesity comorbidity presence: without serious comorbidity Irritable bowel syndrome K58.9 Irritable bowel syndrome type: unspecified Asthma J45.909 Asthma complication type: unspecified Asthma persistence: unspecified Asthma severity: unspecified severity Seizure disorder G40.909 Anxiety and depression F41.9; F32.9 PTSD (post-traumatic stress disorder) F43.10 Crohn's disease K50.919 Digestive disease complication type: unspecified complication Gastrointestinal tract location: unspecified location
--- NOTE | 2019-08-15 11:43 | PC.RESP ---
Smoking Cessation information and a schedule of classes to patient.
--- NOTE | 2019-08-15 12:25 | PC.NURSE ---
08/15/19 12:10 - REPORT CALLED TO [facility] AT NPU; PT'S IV REMOVED AND TAKEN DOWN TO NPU WITH OFFICE COORDINATOR; PAPERWORK AND ANTIBIOTIC GIVEN TO MANAGER STRATEGIC IN NPU;
--- NOTE | 2019-08-15 22:59 | PC.NURSE ---
Pt offered PRN sleep aide, pt refused.
[2019-08-16 06:00] VITALS: BP 142/97; PULSE 65; RESP 22; TEMP 37.1; O2SAT 96
[2019-08-16] MEDS: amlodipine 5 mg Tablet PO (09:01)
[2019-08-16] MEDS: escitalopram 10 mg Tablet 20 MG PO (09:01)
[2019-08-16] MEDS: cefUROXime 250 mg Tablet PO ×2 (09:01→17:57)
[2019-08-16] MEDS: topiramate 25 mg Tablet 50 MG PO (09:01)
[2019-08-16] MEDS: predniSONE 20 mg Tablet PO (09:01)
[2019-08-16] MEDS: dicyclomine 10 mg Capsule PO ×3 (09:02→20:56)
[2019-08-16] MEDS: ARIPiprazole 10 mg Tablet PO (09:02)
[2019-08-16 11:41] LABS: Glucose Point of Care 105 mg/dL (70-110)
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
[2019-08-16 14:00] VITALS: BP 130/83; PULSE 83; RESP 18; TEMP 37.3; O2SAT 98
[2019-08-16 20:53] VITALS: BP 120/85; PULSE 91; RESP 17; TEMP 37.3; O2SAT 97
[2019-08-16] MEDS: trazodone 150 mg Tablet PO (20:56)
--- NOTE | 2019-08-17 | PC.NURSE ---
Pt was given scheduled Xanax, Bentyl, and Trazodone given at HS.
[2019-08-17] MEDS: ondansetron 4 MG Tablet PO ×2 (04:08→21:10)
--- NOTE | 2019-08-17 04:18 | PC.NURSE ---
pt given zofran at this time for multiple episodes of vomiting. pt states she does not vomit very often. Emesis consisted of undigested food.
[2019-08-17 06:00] VITALS: BP 121/77; PULSE 100; RESP 15; TEMP 36.6; O2SAT 95
--- NOTE | 2019-08-17 10:39 | P.PN_ITS ---
Subjective NPU Subjective: Interval history: Zuleyma presents today reporting she is having some kind of stomach problem. She has been throwing up since yesterday reportedly. She has not been able to keep her medication down at this point. We agreed to keep her comfortable for the next 24 hours and see if we can get through this period. She denies recalling anything she is eaten in the last 24 hours that did not seem right given that she is only eaten which she is gotten here. Mental Status Exam MSE Comments: This is an overweight versus obese white female with adequate dress, limited grooming and eye contact. No abnormal movements except for significant psychomotor retardation. Cooperative with exam in mild distress. She was lying in her bed with a emesis basin with emesis in it. Speech was decreased rate and volume mood described as I feel bad, affect congruent. Thought process organized. Thought content: Patient denied any suicidal or homicidal ideation, there were no delusions noted, she denied any auditory visual hallucinations. Attention and concentration were limited and memory was unreliable but none were formally tested. She is alert and oriented x3. Insight and judgment are limited. Vitals/I&O/Wt Last Vital Signs Temp 97.8 F 08/17/19 06:00 Pulse 100 08/17/19 06:00 Resp 15 08/17/19 06:00 BP 121/77 08/17/19 06:00 Pulse Ox 95 08/17/19 06:00 Data NPU : 08/14/19 15:03 08/14/19 15:03 A&P Assessment and plan (1) Suicide attempt by drug overdose: Status: Acute (2) Anxiety and depression: Status: Chronic (3) PTSD (post-traumatic stress disorder): Status: Chronic (4) Methamphetamine addiction: Status: Acute Additional A&P Information This is a 29-year-old white female with a long history of trauma and diagnoses of PTSD, depression and anxiety who presents after a intentional overdose in tra nsfer from the ICU currently having a gastritis or some other issue leading to emesis. 1. We will not attempt medications while she is unable to hold anything down. 2. Continue to 15-minute checks for safety. 3. We will encourage individual group and milieu therapy once this stomach inflammatory process subsides. 4. We will work with social work team for some sort of sober living facility after discharge. Involuntary Hold Information 96 Hour Hold: 96 Hour Involuntary Admission: Yes 96 Hour Hold Ending Date: 08/22/19 96 Hour Hold Ending Time: 12:01 Attestations NPU Medical Necessity Statement*: Inpatient hospitalization is medically necessary and the clinically appropriate intervention at this time. We will monitor medications and make adjustments as indicated. Likely length of stay 3 to 5 days. Coding Level of Care Code Acute Rental Management Trainee for [facility] Fwd Diagnoses Suicide attempt by drug overdose T50.902A Anxiety and depression F41.9; F32.9 PTSD (post-traumatic stress disorder) F43.10 Methamphetamine addiction F15.20
[2019-08-17 14:00] VITALS: BP 129/82; PULSE 91; RESP 18; TEMP 36.9; O2SAT 95
[2019-08-17 22:00] VITALS: BP 139/87; PULSE 91; RESP 23; TEMP 37.6; O2SAT 97
--- NOTE | 2019-08-17 22:16 | PC.NURSE ---
patient refused 2100 medication . stated she was nauseated. Zofran given. upon reassessment at 2154 she stated she did not want evening meds but nausia was not as bad now.
[2019-08-18] MEDS: ondansetron 4 MG Tablet PO (03:52)
[2019-08-18 06:00] VITALS: BP 127/93; PULSE 100; RESP 15; TEMP 36.6; O2SAT 97
[2019-08-18] MEDS: predniSONE 20 mg Tablet PO (09:34)
[2019-08-18] MEDS: ARIPiprazole 10 mg Tablet PO (09:34)
[2019-08-18] MEDS: cefUROXime 250 mg Tablet PO (09:34)
[2019-08-18] MEDS: amlodipine 5 mg Tablet PO (09:34)
[2019-08-18] MEDS: topiramate 25 mg Tablet 50 MG PO (09:34)
[2019-08-18] MEDS: dicyclomine 10 mg Capsule PO (09:34)
[2019-08-18] MEDS: escitalopram 10 mg Tablet 20 MG PO (09:34)
[2019-08-18 13:09] VITALS: BP 156/89; PULSE 85; RESP 18; TEMP 37.1; O2SAT 98
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
[2019-08-18 13:43] VITALS: BP 156/89; PULSE 85; RESP 18; TEMP 37.1; O2SAT 98
== END 2019-08-18 16:40 | disposition home or self-care (01) | DRG 918 ==
LOC: ER 16:51 → ICU 17:04 → NP 08-15 12:08
PROVIDERS: Family Medicine; Admitting Provider Family Medicine; PCP Nurse Practitioner; Visit Provider Psychiatry & Neurology Psychiatry
DX: T43.222A Poisoning by selective serotonin reuptake inhibitors, intentional self-harm, initial encounter (principal); K50.90 Crohn's disease, unspecified, without complications; F17.210 Nicotine dependence, cigarettes, uncomplicated; G40.909 Epilepsy, unspecified, not intractable, without status epilepticus; F41.8 Other specified anxiety disorders; J45.909 Unspecified asthma, uncomplicated; E66.9 Obesity, unspecified; Z68.29 Body mass index [BMI] 29.0-29.9, adult; F12.90 Cannabis use, unspecified, uncomplicated; F15.90 Other stimulant use, unspecified, uncomplicated; C80.1 Malignant (primary) neoplasm, unspecified; I10 Essential (primary) hypertension
CPT/HCPCS: 12345; 36416; 80053; 80306; 80307; 81001; 81025; 82962; 83735; 85025; 87077; 87086; 87186; 93005; 96375; 99282; J2765; J7030; J7512; Q0162

== ENCOUNTER 2019-11-21 23:03 | Emergency (ER) | payer MEDICARE, MEDICAID, SELFPAY ==
[2019-11-21 23:17] VITALS: BP 150/90; PULSE 95; RESP 16; TEMP 36.6; O2SAT 99; BMI 31.7
--- NOTE | 2019-11-21 23:35 | ED_ITS ---
HPI - SOB/Dyspnea General: Chief Complaint: Shortness of Breath/Dyspnea Stated Complaint: cough/sore throat Time Seen by Provider: 11/21/19 23:31 Source: patient Mode of arrival: ambulatory Limitations: no limitations History of Present Illness: HPI Narrative: Patient comes in today for concerns of exposure to COVID-19. Patient also reports tender sore rested lesions. Patient reports history of MRSA. Patient appears well. Patient appears in no pain. Review of Systems General: Reports: 10 or more systems reviewed and unremarkable except in HPI and below Skin/Breast: Reports: changing lesions PFSH ED PFSH: Medical History (Updated 11/21/19 @ 23:37 by ZHENG Gilmore) Anxiety and depression Asthma Crohn's disease Irritable bowel syndrome Obesity PTSD (post-traumatic stress disorder) Seizure disorder Surgical History H/O adenoidectomy H/O: hysterectomy History of appendectomy History of tonsillectomy Family History (Updated 08/14/19 @ 16:37 by Molly Alcantar MD) Other Cancer Social History (Updated 08/14/19 @ 16:38 by Molly Alcantar MD) Smoking and tobacco status: current every day smoker Physical Exam Const: COMMON NORMALS: no acute distress and patient oriented x3 GENERAL APPEARANCE: cooperative HENMT: COMMON NORMALS: normocephalic and Normal external nose present HEAD & SCALP: normal to inspection and normocephalic NOSE: Normal external nose present Eye: GENERAL EYE: appearance normal, both eyes and all related structures Neck/C-Spine: COMMON NORMALS: full ROM Chest: COMMONS NORMALS: normal inspection of the chest Resp: COMMON NORMALS: normal respiratory effort EFFORT & INSPECTION: Yes able to speak in complete sentences Cardio: COMMON NORMALS: regular rate and regular rhythm RATE: regular rate RHYTHM: regular rhythm GI: COMMON NORMALS: non-tender Back/Pelvis: COMMON NORMALS: thoracic and lumbar spine normal to inspection Extremity: COMMON NORMALS: normal to inspection Neuro: COMMON NORMALS: patient oriented x3 and moves all extremities Psych: COMMON NORMALS: mental status grossly normal and cooperative Skin: NARRATIVE SKIN EXAM: Multiple coin size crusted lesions to the buttocks and the forearm. Course Vital Signs: Vital signs: Vital Signs Temperature 97.9 F 11/21/19 23:17 Pulse Rate 95 09/28/20 23:17 Respiratory Rate 16 11/21/19 23:17 Blood Pressure 150/90 11/21/19 23:17 Pulse Oximetry 99 11/21/19 23:17 MDM - SOB/Dyspnea MDM Narrative: Medical decision making narrative: Patient comes in for concerns of exposure to COVID-19, patient also reports some sore tender lesions that she needs treatment for. Patient states that she has a history of staph. Exam notes some crusted lesions. Otherwise patient's exam is normal. Vital signs are normal. Differential diagnosis includes folliculitis, impetigo, cellulitis. COVID-19 swab was sent to [facility] Patient was placed on Bactrim for her folliculitis. Patient reported understanding of care plan and need for follow-up. Discharge Plan Discharge Patient Disposition: Home Clinical Impression: Folliculitis, Close exposure to 2019 novel coronavirus Condition: Stable Prescriptions: New Bactrim DS 800-160 mg tablet 1 tab PO BID 7 Days Qty: 14 RF: 0 No Action dicyclomine [Bentyl] 10 mg/mL Solution 10 mg IM TID RF: 0 prednisone 20 mg Tablet 20 mg PO DAILY RF: 0 amlodipine 5 mg tablet 5 mg PO DAILY RF: 0 Vyvanse 70 mg Capsule 70 mg PO QAM RF: 0 aripiprazole 10 mg Tablet 10 mg PO DAILY 30 Days Qty: 30 RF: 1 Xanax 1 mg tablet 1 mg PO QID 15 Days Qty: 60 RF: 1 trazodone 150 mg tablet 150 mg PO BEDTIME 30 Days Qty: 30 RF: 1 escitalopram oxalate 20 mg tablet 20 mg PO DAILY 30 Days Qty: 30 RF: 1 topiramate 50 mg tablet 50 mg PO DAILY 30 Days Qty: 30 RF: 0 Discharge Orders: Discharge Order (Routine); Ordered 11/21/19 Ordered By: Richard Angel Referrals: Kelley Kat APN [Primary Care Provider] - Discharge Diet: Usual diet Discharge Activity: Increase activity as tolerated Patient Instructions: Folliculitis (ED) Activity Restrictions/Additional Instructions: Drink plenty of fluids. Acetaminophen and ibuprofen for pain and fever. It will take 2 to 3 days for the COVID for test results. Use antibiotics as directed for skin infection. Follow-up with primary care. Return to the emergency department for new concerns. Self quarantine until test results for protection of other individuals. Coding Level of Care Code ED Starchmaker for [facility] Fwd Exam Comprehensive
--- NOTE | 2019-11-22 00:05 | PC.NURSE ---
UPON ENTERING ROOM PT IS NOT IN ROOM. PT YENI STATES THAT SHE LEFT.
== END 2019-11-22 00:06 | disposition home or self-care (01) ==
PROVIDERS: Emergency Provider Nurse Practitioner Family; PCP Nurse Practitioner
DX: L73.9 Follicular disorder, unspecified (principal); Z20.828 Contact with and (suspected) exposure to other viral communicable diseases; J45.909 Unspecified asthma, uncomplicated; F17.210 Nicotine dependence, cigarettes, uncomplicated
CPT/HCPCS: 12345; 99281

== ENCOUNTER 2019-12-08 02:25 | Emergency (ER) | payer MEDICARE, MEDICAID, SELFPAY ==
[2019-12-08 02:33] VITALS: BP 139/62; PULSE 88; RESP 17; TEMP 36.8; O2SAT 96; BMI 31.7
--- NOTE | 2019-12-08 02:50 | ED_ITS ---
HPI - General Adult General: Chief complaint: General Medical Stated complaint: possible spider bite Time Seen by Provider: 12/08/19 02:27 Source: patient Mode of arrival: ambulatory Limitations: no limitations History of Present Illness: HPI narrative: 29-year-old female states she has a painful area to her right thigh. Patient appears to have an abscess on her right thigh. She states she has history of multiple abscesses in the past and has a history of MRSA. She was concerned it was a brown recluse bite. States that it is painful and rates her pain 7 out of 10 and is much worse with palpation. She denies any fever. She had slight drainage from the site. Associated symptoms: Deny chest pain, dyspnea, headache(s), nausea or vomiting Review of Systems Const: Denies: fever(s), chills, body aches or change in appetite Eyes: Denies: blurry vision or eye discomfort ENMT: Denies: throat pain or dental pain Card: Denies: chest pain Resp: Denies: dyspnea GI: Denies: abdominal pain, nausea, vomiting or diarrhea : Denies: dysuria Musc: Denies: neck pain or back pain Skin/Breast: Reports: erythema Neuro: Denies: headache(s) Psych: Denies: depression Nixon/Lymph: Denies: easy bruising All/Imm: Denies: urticaria PFSH ED PFSH: Medical History Anxiety and depression Asthma Crohn's disease Irritable bowel syndrome Obesity PTSD (post-traumatic stress disorder) Seizure disorder Surgical History H/O adenoidectomy H/O: hysterectomy History of appendectomy History of tonsillectomy Family History Other Cancer Social History Smoking and tobacco status: current every day smoker Physical Exam Const: COMMON NORMALS: no acute distress, patient oriented x3 and healthy appearing HENMT: COMMON NORMALS: normocephalic and atraumatic HEAD & SCALP: normocephalic and atraumatic Eye: COMMON NORMALS: Equal, round and reactive pupils present and EOMs intact bilaterally PUPIL: Yes Equal, round and reactive pupils present Neck/C-Spine: COMMON NORMALS: full ROM and supple Chest: COMMONS NORMALS: normal inspection of the chest and normal palpation of entire chest wall Resp: COMMON NORMALS: normal respiratory effort, No retractions, No use of accessory muscles and clear to auscultation bilaterally AUSCULTATION: clear to auscultation bilaterally Cardio: COMMON NORMALS: regular rate, regular rhythm and No murmurs present (Cardio) RATE: regular rate RHYTHM: regular rhythm GI: COMMON NORMALS: Normal to inspection, nondistended, normoactive bowel sounds present, Soft to palpation, non-tender and no masses PALPATION: Yes Soft to palpation Extremity: COMMON NORMALS: normal to inspection and full ROM Neuro: COMMON NORMALS: patient oriented x3, moves all extremities and no focal motor deficits Psych: COMMON NORMALS: mental status grossly normal, Normal thought process present and cooperative THOUGHT PROCESS: Normal thought process present Skin: NARRATIVE SKIN EXAM: 3 cm abscess to right leg Procedures Abscess I/D Site: lower extremity Side (if applicable): right Local Anesthetic: lidocaine 1% Amount of anesthesia used (mL): 10 Technique: incised with #11 blade Packing used?: none Course Vital Signs: Vital signs: Vital Signs Temperature 98.2 F 12/08/19 02:33 Pulse Rate 88 12/08/19 02:33 Respiratory Rate 17 12/08/19 02:33 Blood Pressure 139/62 12/08/19 02:33 Pulse Oximetry 96 12/08/19 02:33 MDM - General Adult MDM Narrative: Medical decision making narrative: Zuleyma presents here with abscess to her leg. I incised and drained the abscess. She is to continue her Bactrim and will place her on Keflex as well. She is to do warm soaks. She is to return if worsening. She is stable for discharge at this time and follow-up with PCP in 3 to 5 days. Discharge Plan Discharge Patient Disposition: Home Clinical Impression: Abscess Condition: Stable Prescriptions: New Keflex 500 mg capsule 500 mg PO Q6H 7 Days Qty: 28 RF: 0 No Action dicyclomine [Bentyl] 10 mg/mL Solution 10 mg IM TID RF: 0 prednisone 20 mg Tablet 20 mg PO DAILY RF: 0 amlodipine 5 mg tablet 5 mg PO DAILY RF: 0 Vyvanse 70 mg Capsule 70 mg PO QAM RF: 0 aripiprazole 10 mg Tablet 10 mg PO DAILY 30 Days Qty: 30 RF: 1 Xanax 1 mg tablet 1 mg PO QID 15 Days Qty: 60 RF: 1 trazodone 150 mg tablet 150 mg PO BEDTIME 30 Days Qty: 30 RF: 1 escitalopram oxalate 20 mg tablet 20 mg PO DAILY 30 Days Qty: 30 RF: 1 topiramate 50 mg tablet 50 mg PO DAILY 30 Days Qty: 30 RF: 0 Discharge Orders: Discharge Order (Routine); Ordered 12/08/19 Ordered By: Wan Calvo Referrals: Kelley Kat FORESTRY CONSERVATION WORKER [Primary Care Provider] - 1-3 days Discharge Diet: Advance as tolerated Discharge Activity: Resume usual activity Patient Instructions: Abscess (ED) Coding Level of Care Code ED Devops Solutions Architect for [facility]
[2019-12-08 03:00] VITALS: BP 155/96; PULSE 90; RESP 16; O2SAT 97
--- NOTE | 2019-12-08 03:15 | PC.NURSE ---
4x4 and coban dressing applied to wound Rt leg
[2019-12-08 03:16] VITALS: BP 167/89; PULSE 94; RESP 16; TEMP 36.7; O2SAT 97
== END 2019-12-08 03:19 | disposition home or self-care (01) ==
PROVIDERS: Emergency Provider Emergency Medicine; PCP Nurse Practitioner
DX: L02.415 Cutaneous abscess of right lower limb (principal); F17.210 Nicotine dependence, cigarettes, uncomplicated
CPT/HCPCS: 10060; 12345; 99281; 99282

== ENCOUNTER 2019-12-16 09:40 | Outpatient (CLI) | payer MEDICARE, MEDICAID, SELFPAY ==
--- NOTE | 2019-12-16 09:49 | USCV_ITS ---
Zuleyma Bryant Age: 29 Gender: F : 1990 Exam Date: 12/16/2019 10:01 Ordering Phys: Ivette Tatum MD Technologist: Umu Dumont Exam Location: [facility] [place] Indication: Pt complaint of history of and PFO BP: / HR: 102 Rhythm: Sinus Technical Quality: Fair MEASUREMENTS (Male / Female) Normal Values 2D ECHO LV Diastolic Diameter PLAX 3.1 cm 4.2 - 5.9 / 3.9 - 5.3 cm LV Systolic Diameter PLAX 2.5 cm LV Chamber Size 4.3 cm IVS Diastolic Thickness 1.2 cm 0.6 - 1.0 / 0.6 - 0.9 cm IVS Systolic Thickness 1.4 cm LVPW Diastolic Thickness 1.4 cm 0.6 - 1.0 / 0.6 - 0.9 cm LVPW Systolic Thickness 1.4 cm RV Chamber Size 2.7 cm LVOT Diameter 2.0 cm LV Ejection Fraction 2D Teich 38.7 % LV Ejection Fraction MOD 2C 72.3 % LV Ejection Fraction 2C AL 74.4 % LA Diameter 3.0 cm LA Width 2.8 cm LA Height 3.5 cm RA Width 2.4 cm RA Height 3.6 cm Aorta at Sinotubular Diameter 3.1 cm M-MODE LV Diastolic Diameter MM 4.0 cm 4.2 - 5.9 / 3.9 - 5.3 cm LV Systolic Diameter MM 2.8 cm LV Ejection Fraction MM Teich 56.9 % IVS Diastolic Thickness MM 1.0 cm 0.6 - 1.0 / 0.6 - 0.9 cm IVS Systolic Thickness MM 1.2 cm LVPW Diastolic Thickness MM 1.0 cm 0.6 - 1.0 / 0.6 - 0.9 cm LVPW Systolic Thickness MM 1.6 cm RV Diastolic Diameter MM 1.0 cm Aortic Annulus Diameter 3.0 cm LA Ao Ratio MM 1.1 MV E Point Septal Separation 0.4 cm DOPPLER AV Peak Velocity 137.3 cm/s LVOT Peak Velocity 88.7 cm/s AV Area Cont Eq vti 1.9 cm squared AV Area Cont Eq pk 2.0 cm squared MV Area PHT 5.1 cm squared Mitral E to A Ratio 1.4 MV E' Velocity 50.0 cm/s Mitral E to MV E' Ratio 6.3 Mitral E to LV E' Lateral Ratio 6.2 Mitral E to LV E' Septal Ratio 6.3 TR Peak Velocity 256.7 cm/s TR Peak Gradient 26.4 mmHg TR Mean Velocity 202.0 cm/s TR Mean Gradient 17.5 mmHg TR Velocity Time Integral 65.3 cm TV Peak E Velocity 86.0 cm/s Right Atrial Pressure 5.0 mmHg Pulmonary Artery Systolic Pressu 31.4 mmHg PV Peak Velocity 97.0 cm/s RV Acceleration Time 0.2 s RV Ejection Time 0.3 s RV AcT/ET 0.6 FINDINGS Left Ventricle Normal left ventricular size, systolic function and wall thickness, with no regional wall motion abnormalities. Left ventricular ejection fraction is estimated at 71 %. Normal diastolic function. Right Ventricle Normal right ventricular size and systolic function, RVSP 31.4 mmHg. Right Atrium Normal right atrial size. Aneurysmal interatrial septum. No ASD or PFO based on this. Left Atrium Normal left atrial size. Mitral Valve Structurally normal mitral valve. No mitral valve stenosis. No significant mitral valve regurgitation. Aortic Valve Structurally normal trileaflet aortic valve. No aortic valve stenosis. No aortic valve regurgitation. Tricuspid Valve Structurally normal tricuspid valve. No tricuspid valve stenosis. Trace tricuspid valve regurgitation. Pulmonic Valve Structurally normal pulmonic valve. No pulmonary valve stenosis. Trace pulmonary valve regurgitation. Pericardium No pericardial effusion. Aorta Normal size aortic root. CONCLUSIONS 1. Normal left ventricular size, systolic function and wall thickness, with no regional wall motion abnormalities. Left ventricular ejection fraction is estimated at 71 %. Normal diastolic function. 2. Normal right ventricular size and systolic function, RVSP 31.4 mmHg. 3. No significant valvular anormality. 4. No prior similar studies to compare. Altagracia Nieves MD (Electronically Signed) Final Date: 16 December 2019 15:35 S
== END 2019-12-16 09:41 | disposition home or self-care (01) ==
PROVIDERS: PCP Nurse Practitioner; Visit Provider Family Medicine
DX: I35.0 Nonrheumatic aortic (valve) stenosis (principal)
CPT/HCPCS: 93306

== ENCOUNTER 2020-01-06 19:44 | Emergency (ER) | payer MEDICARE, MEDICAID, SELFPAY ==
[2020-01-06 20:01] VITALS: BP 140/92; PULSE 104; RESP 18; TEMP 36.3; O2SAT 100; BMI 29.7
--- NOTE | 2020-01-06 20:11 | ED_ITS ---
HPI - Skin/Abscess/Foreign Bdy General: Chief complaint: Skin/Abscess/Foreign Body Stated complaint: abscess under arm Time Seen by Provider: 01/06/20 20:08 Source: patient Mode of arrival: ambulatory Limitations: no limitations History of Present Illness: HPI narrative: Patient comes in with abscess to the left axilla. Patient appears well. Patient appears in no acute distress. Patient reports previous history with similar skin problems. Review of Systems General: Reports: 10 or more systems reviewed and unremarkable except in HPI and below Skin/Breast: Reports: skin tenderness [facility] ED PFSH: Medical History (Updated 01/06/20 @ 20:44 by ZHENG Gilmore) Anxiety and depression Asthma Crohn's disease Irritable bowel syndrome Obesity PTSD (post-traumatic stress disorder) Seizure disorder Surgical History H/O adenoidectomy H/O: hysterectomy History of appendectomy History of tonsillectomy Family History Other Cancer Social History Smoking and tobacco status: current every day smoker Physical Exam Const: COMMON NORMALS: no acute distress and patient oriented x3 GENERAL APPEARANCE: cooperative HENMT: COMMON NORMALS: normocephalic and Normal external nose present HEAD & SCALP: normal to inspection and normocephalic NOSE: Normal external nose present Eye: GENERAL EYE: appearance normal, both eyes and all related structures Neck/C-Spine: COMMON NORMALS: full ROM Lymph: LYMPHATIC: no lymphadenopathy noted Chest: COMMONS NORMALS: normal inspection of the chest Resp: COMMON NORMALS: normal respiratory effort EFFORT & INSPECTION: Yes able to speak in complete sentences Cardio: COMMON NORMALS: regular rate and regular rhythm RATE: regular rate RHYTHM: regular rhythm GI: COMMON NORMALS: non-tender Extremity: COMMON NORMALS: normal to inspection Neuro: COMMON NORMALS: patient oriented x3 and moves all extremities Psych: COMMON NORMALS: mental status grossly normal and cooperative Skin: NARRATIVE SKIN EXAM: Patient has a 2 cm area of fluctuance and tenderness to the left axilla. Minimal redness is noted. Procedures Abscess I/D Site: upper extremity Side (if applicable): left Local Anesthetic: lidocaine 1% Amount of anesthesia used (mL): 5 Technique: incised with #11 blade Amount of fluid expressed (mL): 1 Irrigation: Yes Packing used?: iodoform Complications: pain Course Vital Signs: Vital signs: Vital Signs Temperature 97.3 F L 01/06/20 20:01 Pulse Rate 104 H 01/06/20 20:01 Respiratory Rate 18 01/06/20 20:01 Blood Pressure 140/92 01/06/20 20:01 Pulse Oximetry 100 01/06/20 20:01 MDM - Skin/Abscess/Foreign Bdy MDM Narrative: Medical decision making narrative: Patient presents with abscess to left axilla. On exam we noted a 2 cm area of fluctuance with swelli ng but minimal redness. Differential diagnosis includes but not limited to inclusion of cyst, abscess, hydradenitis suppurative. Patient requested incision and drainage of the abscess. A small incision was made with the loculation noticeable sebum was removed from the site. And some serous fluid. 1/4 inch 3 inch gauze was used for packing/wick. Reviewed exam with patient recommendations for treatment and follow-up. Patient reported understanding. Discharge Plan Discharge Patient Disposition: Home Clinical Impression: Abscess of skin or subcutaneous tissue Qualifiers: Site of cutaneous abscess: extremity Site of cutaneous abscess of extremity: axilla Laterality: left Qualified Code(s): L02.412 - Cutaneous abscess of left axilla Condition: Stable Prescriptions: New Bactrim DS 800-160 mg tablet 1 tab PO DAILY 7 Days Qty: 14 RF: 0 No Action dicyclomine [Bentyl] 10 mg/mL Solution 10 mg IM TID RF: 0 prednisone 20 mg Tablet 20 mg PO DAILY RF: 0 amlodipine 5 mg tablet 5 mg PO DAILY RF: 0 Vyvanse 70 mg Capsule 70 mg PO QAM RF: 0 aripiprazole 10 mg Tablet 10 mg PO DAILY 30 Days Qty: 30 RF: 1 Xanax 1 mg tablet 1 mg PO QID 15 Days Qty: 60 RF: 1 trazodone 150 mg tablet 150 mg PO BEDTIME 30 Days Qty: 30 RF: 1 escitalopram oxalate 20 mg tablet 20 mg PO DAILY 30 Days Qty: 30 RF: 1 topiramate 50 mg tablet 50 mg PO DAILY 30 Days Qty: 30 RF: 0 Discharge Orders: Discharge Order (Routine); Ordered 01/06/20 Ordered By: Richard Angel Referrals: Kelley Kat, PLATING INSPECTOR [Primary Care Provider] - Discharge Diet: Usual diet Discharge Activity: Increase activity as tolerated Patient Instructions: Abscess Incision and Drainage (ED) Activity Restrictions/Additional Instructions: Remove wick in 3 days. If wick comes out before the 3 days leave it out. Take antibiotics as directed for 7 days. Return to the emergency department or follow-up with primary care for worsening symptoms. Return to the emergency department for new concerns. Coding Level of Care Code ED Outside Machinist Helper for Tuilo Fwd Exam Comprehensive
[2020-01-06] MEDS: sulfamethoxazole-trimeth DS 160-800 mg Tablet 1 TAB PO (20:41)
[2020-01-06] MEDS: mupirocin oint 22 gm 1 APPLIC TOPICAL (21:21)
== END 2020-01-06 21:21 | disposition home or self-care (01) ==
PROVIDERS: Emergency Provider Nurse Practitioner Family; PCP Nurse Practitioner
DX: L02.412 Cutaneous abscess of left axilla (principal); F17.210 Nicotine dependence, cigarettes, uncomplicated
CPT/HCPCS: 10060; 12345; 99281; 99283

== ENCOUNTER 2020-02-06 00:12 | Emergency (ER) | payer MEDICARE, MEDICAID, SELFPAY ==
[2020-02-06 00:20] VITALS: BP 151/103; PULSE 96; RESP 18; TEMP 36.8; O2SAT 99; BMI 31.1
--- NOTE | 2020-02-06 00:26 | ED_ITS ---
HPI - Skin/Abscess/Foreign Bdy General: Chief complaint: Skin/Abscess/Foreign Body Stated complaint: abcess under left armpit Time Seen by Provider: 02/06/20 00:18 History of Present Illness: HPI narrative: Patient is a 29-year-old female comes to the ED with an abscess in the left axillary region. Patient says she has had these multiple times before and was seen here on January 05 for same complaint. About 5 days ago she says she started developing a sore nodule in the left axilla. It has gotten larger tender more painful. Denies any fever, chills. Associated symptoms: Deny chills, fever(s), nausea or vomiting Review of Systems Const: Denies: fever(s), chills or fatigue Eyes: Denies: change in vision or eye discomfort ENMT: Denies: throat pain, odynophagia, nasal discharge or nasal congestion Card: Denies: chest pain, palpitations, edema, swelling of feet/ankles, dyspnea on exertion or orthopnea Resp: Denies: dyspnea, productive cough or non-productive cough GI: Denies: abdominal pain, nausea, vomiting, diarrhea, constipation or hematochezia : Denies: flank pain, dysuria or hematuria Musc: Denies: neck pain, back pain or extremity swelling Skin/Breast: Reports: new lesions (Abscess in left axillary region.); Denies: rash Neuro: Denies: headache(s), numbness in extremities or weakness in extremities PFS ED PFSH: Medical History Anxiety and depression Asthma Crohn's disease Irritable bowel syndrome Obesity PTSD (post-traumatic stress disorder) Seizure disorder Surgical History H/O adenoidectomy H/O: hysterectomy History of appendectomy History of tonsillectomy Family History Other Cancer Social History Smoking and tobacco status: current every day smoker Physical Exam Const: COMMON NORMALS: no acute distress, patient oriented x3 and alert GENERAL APPEARANCE: cooperative and comfortable HENMT: COMMON NORMALS: normocephalic HEAD & SCALP: normocephalic MOUTH: Normal oral and palatal mucosa present THROAT: posterior oropharynx normal and uvula midline Neck/C-Spine: COMMON NORMALS: supple GENERAL: Yes normal visual inspection Resp: COMMON NORMALS: normal respiratory effort, No retractions, No use of accessory muscles and clear to auscultation bilaterally AUSCULTATION: clear to auscultation bilaterally Cardio: COMMON NORMALS: regular rate, regular rhythm, S1 normal heart sound present, S2 normal heart sound present, No gallops present (Cardio), No clicks present (Cardio), No murmurs present (Cardio) and Peripheral pulses 2+ throughout RATE: regular rate RHYTHM: regular rhythm HEART SOUNDS: S1 normal heart sound present and S2 normal heart sound present PERIPHERAL PULSES: Peripheral pulses 2+ throughout GI: COMMON NORMALS: Normal to inspection, nondistended, normoactive bowel sounds present, Soft to palpation, non-tender and no masses PALPATION: Yes Soft to palpation : COMMON NORMALS: Yes no CVA tenderness BLADDER/KIDNEY EXAM: Yes no CVA tenderness Back/Pelvis: COMMON NORMALS: no CVA tenderness Extremity: COMMON NORMALS: normal to inspection Neuro: COMMON NORMALS: patient oriented x3 and moves all extremities SENSORIUM/ORIENTATION: Yes alert Skin: NARRATIVE SKIN EXAM: Left axillary?patient has tender nodule with erythema and warmth. Nodule approximately 1.5 cm in diameter. Findings suggestive of a abscess. GENERAL SKIN EXAM: dry skin Procedures Abscess I/D Site: upper extremity (axillary) Side (if applicable): left Sedation/analgesia: none Local Anesthetic: lidocaine 1% and with epi Amount of anesthesia used (mL): 10 Technique: incised with #11 blade Amount of fluid expressed (mL): 3 (Malodorous purulent drainage) Irrigation: Yes Packing used?: iodoform Course 2 Vital Signs: Vital signs: Vital Signs Temperature 98.2 F 02/06/20 00:20 Pulse Rate 74 02/06/20 01:38 Respiratory Rate 18 02/06/20 01:38 Blood Pressure 141/88 02/06/20 01:38 Pulse Oximetry 97 02/06/20 01:38 MDM - Skin/Abscess/Foreign Bdy MDM Narrative: Medical decision making narrative: Patient is a 29-year-old female who has had an abscess on the left axillary. I&D was performed and culture was obtained and sent to lab. Packing was placed in the abscess and patient was told to return to ED in 48 hours to get packing removed. She was sent home with a prescription for clindamycin. Patient understood and agreed with plan. Discharge Plan Discharge Patient Disposition: Home Clinical Impression: Abscess of skin or subcutaneous tissue Qualifiers: Site of cutaneous abscess: extremity Site of cutaneous abscess of extremity: axilla Laterality: left Qualified Code(s): L02.412 - Cutaneous abscess of left axilla Condition: Stable Prescriptions: New clindamycin HCl 150 mg capsule 300 mg PO QID 7 Days Qty: 56 RF: 0 No Action dicyclomine [Bentyl] 10 mg/mL Solution 10 mg IM TID RF: 0 prednisone 20 mg Tablet 20 mg PO DAILY RF: 0 mupirocin 2 % ointment 1 applic topical BID Qty: 22 RF: 0 amlodipine 5 mg tablet 5 mg PO DAILY RF: 0 Vyvanse 70 mg Capsule 70 mg PO QAM RF: 0 aripiprazole 10 mg Tablet 10 mg PO DAILY 30 Days Qty: 30 RF: 1 Xanax 1 mg tablet 1 mg PO QID 15 Days Qty: 60 RF: 1 trazodone 150 mg tablet 150 mg PO BEDTIME 30 Days Qty: 30 RF: 1 escitalopram oxalate 20 mg tablet 20 mg PO DAILY 30 Days Qty: 30 RF: 1 topiramate 50 mg tablet 50 mg PO DAILY 30 Days Qty: 30 RF: 0 Discharge Orders: Discharge ED (Routine); Ordered 02/06/20 Ordered By: Mika Tirado Referrals: Kelley Kat UTILITY PLANT OPERATIVE [Primary Care Provider] - Discharge Diet: Regular Discharge Activity: Resume usual activity Patient Instructions: Abscess Incision and Drainage (ED), Abscess (ED) Activity Restrictions/Additional Instructions: Follow-up with medical provider as directed. Have packing removed within the next 48 hours. Take medications as prescribed. Return to the ER or your medical provider if condition worsens. Please read and understand discharge instructions. If any questions, please ask. Coding Level of Care Code ED Sorting Livestock Worker for Tulio Quevedo Exam Comprehensive
[2020-02-06] MEDS: clindamycin 150 mg Capsule 300 MG PO (01:25)
[2020-02-06 01:38] VITALS: BP 141/88; PULSE 74; RESP 18; O2SAT 97
== END 2020-02-06 01:39 | disposition home or self-care (01) ==
PROVIDERS: Emergency Provider Physician Assistant; PCP Nurse Practitioner
DX: L02.412 Cutaneous abscess of left axilla (principal); F17.210 Nicotine dependence, cigarettes, uncomplicated
CPT/HCPCS: 10060; 12345; 87070; 87075; 87077; 87186; 87205; 99282; 99283

== ENCOUNTER 2020-02-07 15:22 | Emergency (ER) | payer MEDICARE, MEDICAID, SELFPAY ==
[2020-02-07 15:24] VITALS: BP 127/74; PULSE 115; RESP 18; TEMP 36.8; O2SAT 100; BMI 31.2
--- NOTE | 2020-02-07 15:41 | W.ED.WOUNDLC ---
HPI - Wound/Laceration General: Chief Complaint: Wound/Laceration Stated Complaint: wound check Time Seen by Provider: 02/07/20 15:31 Source: patient Mode of arrival: ambulatory Limitations: no limitations History of Present Illness: HPI narrative: 29 yo female who was seen here yesterday had abscesses incised in her left armpit. She states the lower one has not been draining is been larger. She does have packing in place. States her pain is a 6 out of 10. Denies any fever. Associated symptoms: Denies chills, fever(s), nausea or vomiting Review of Systems Const: Denies: fever(s), chills, body aches or change in appetite Eyes: Denies: blurry vision or eye discomfort ENMT: Denies: throat pain or dental pain Card: Denies: chest pain Resp: Denies: dyspnea GI: Denies: abdominal pain, nausea, vomiting or diarrhea : Denies: dysuria Musc: Denies: neck pain or back pain Skin/Breast: Reports: rash Neuro: Denies: headache(s) Psych: Denies: depression Nixon/Lymph: Denies: easy bruising All/Imm: Denies: urticaria PFSH ED PFSH: Medical History (Updated 02/07/20 @ 15:42 by Wan Calvo MD) Anxiety and depression Asthma Crohn's disease Irritable bowel syndrome Obesity PTSD (post-traumatic stress disorder) Seizure disorder Surgical History H/O adenoidectomy H/O: hysterectomy History of appendectomy History of tonsillectomy Family History Other Cancer Social History Smoking and tobacco status: current every day smoker Physical Exam Const: COMMON NORMALS: no acute distress, patient oriented x3 and healthy appearing HENMT: COMMON NORMALS: normocephalic and atraumatic HEAD & SCALP: normocephalic and atraumatic Eye: COMMON NORMALS: Equal, round and reactive pupils present and EOMs intact bilaterally PUPIL: Yes Equal, round and reactive pupils present Neck/C-Spine: COMMON NORMALS: full ROM and supple Chest: COMMONS NORMALS: normal inspection of the chest and normal palpation of entire chest wall Resp: COMMON NORMALS: normal respiratory effort, No retractions, No use of accessory muscles and clear to auscultation bilaterally AUSCULTATION: clear to auscultation bilaterally Cardio: COMMON NORMALS: regular rate, regular rhythm and No murmurs present (Cardio) RATE: regular rate RHYTHM: regular rhythm GI: COMMON NORMALS: Normal to inspection, nondistended, normoactive bowel sounds present, Soft to palpation, non-tender and no masses PALPATION: Yes Soft to palpation Extremity: COMMON NORMALS: normal to inspection and full ROM NARRATIVE EXTREMITY EXAM: 2 abscesses been drained to left armpit the lower abscess still purulent needs to be incised further Neuro: COMMON NORMALS: patient oriented x3, moves all extremities and no focal motor deficits Psych: COMMON NORMALS: mental status grossly normal, Normal thought process present and cooperative THOUGHT PROCESS: Normal thought process present Skin: COMMON NORMALS: no rashes or lesions noted and no wounds GENERAL SKIN EXAM: no rashes or lesions noted Procedures Abscess I/D Site: upper extremity Side (if applicable): left Local Anesthetic: lidocaine 1% Technique: incised with #11 blade Irrigation: No Packing used?: none Course Vital Signs: Vital signs: Vital Signs Temperature 98.2 F 02/07/20 15:24 Pulse Rate 115 H 02/07/20 15:24 Respiratory Rate 18 02/07/20 15:24 Blood Pressure 127/74 02/07/20 15:24 Pulse Oximetry 100 02/07/20 15:24 MDM - Wound/Laceration MDM Narrative: Medical decision making narrative: Patient presents for an abscess to her armpit. I did remove the packing. I did incise the lower one further. She is to continue antibiotics and she is stable for discharge. Discharge Plan Discharge Patient Disposition: Home Clinical Impression: Abscess Condition: Stable Prescriptions: No Action dicyclomine [Bentyl] 10 mg/mL Solution 10 mg IM TID RF: 0 prednisone 20 mg Tablet 20 mg PO DAILY RF: 0 mupirocin 2 % ointment 1 applic topical BID Qty: 22 RF: 0 amlodipine 5 mg tablet 5 mg PO DAILY RF: 0 Vyvanse 70 mg Capsule 70 mg PO QAM RF: 0 aripiprazole 10 mg Tablet 10 mg PO DAILY 30 Days Qty: 30 RF: 1 Xanax 1 mg tablet 1 mg PO QID 15 Days Qty: 60 RF: 1 trazodone 150 mg tablet 150 mg PO BEDTIME 30 Days Qty: 30 RF: 1 escitalopram oxalate 20 mg tablet 20 mg PO DAILY 30 Days Qty: 30 RF: 1 topiramate 50 mg tablet 50 mg PO DAILY 30 Days Qty: 30 RF: 0 clindamycin HCl 150 mg capsule 300 mg PO QID 7 Days Qty: 56 RF: 0 Discharge Orders: Discharge ED (Routine); Ordered 02/07/20 Ordered By: Wan Calvo Referrals: Kelley Kat GRADUATE ENGINEER [Primary Care Provider] - 1-3 days Discharge Diet: Advance as tolerated Discharge Activity: Resume usual activity Patient Instructions: Abscess (ED) Coding Level of Care Code ED Data Center Solutions Architect for Tulio Quevedo
[2020-02-07] MEDS: lidocaine 1% INJ 20 mL INTRADERMA (15:55)
== END 2020-02-07 15:56 | disposition home or self-care (01) ==
PROVIDERS: Emergency Provider Emergency Medicine; PCP Nurse Practitioner
DX: L02.412 Cutaneous abscess of left axilla (principal); F17.210 Nicotine dependence, cigarettes, uncomplicated
CPT/HCPCS: 10060; 12345; 96372; 99281; 99282

== ENCOUNTER 2020-06-29 17:34 | Emergency (ER) | payer MEDICARE, MEDICAID, SELFPAY ==
[2020-06-29 17:41] VITALS: BP 144/96; PULSE 78; RESP 18; TEMP 36.3; O2SAT 96; BMI 31.7
[2020-06-29 18:52] VITALS: BP 135/98; PULSE 101; RESP 16; O2SAT 99
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
== END 2020-06-29 18:53 | disposition left against medical advice (07) ==
LOC: ER 18:43
PROVIDERS: Emergency Provider Family Medicine; PCP Nurse Practitioner
DX: F32.9 Major depressive disorder, single episode, unspecified (principal); F17.210 Nicotine dependence, cigarettes, uncomplicated; Z53.21 Procedure and treatment not carried out due to patient leaving prior to being seen by health care provider
CPT/HCPCS: 99283

== ENCOUNTER 2020-07-22 01:19 | Emergency (ER) | payer MEDICARE, MEDICAID, SELFPAY ==
[2020-07-22 01:25] VITALS: BP 138/102; PULSE 123; RESP 20; TEMP 36.3; O2SAT 97; BMI 30.2
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
[2020-07-22] MEDS: oxyCODONE-APAP 5-325 mg Tablet 2 TAB PO (01:56)
[2020-07-22 04:02] VITALS: BP 120/71; PULSE 98; RESP 18; O2SAT 98
== END 2020-07-22 04:04 | disposition home or self-care (01) ==
PROVIDERS: Emergency Provider Emergency Medicine; PCP Nurse Practitioner
DX: S06.0X0A Concussion without loss of consciousness, initial encounter (principal); S60.222A Contusion of left hand, initial encounter; Y04.2XXA Assault by strike against or bumped into by another person, initial encounter; F17.210 Nicotine dependence, cigarettes, uncomplicated
CPT/HCPCS: 70450; 70486; 72125; 73130; 99283

== ENCOUNTER 2020-10-14 23:00 | Emergency (ER) | payer MEDICARE, MEDICAID, SELFPAY ==
[2020-10-14 23:15] VITALS: BP 116/72; PULSE 100; RESP 16; TEMP 37.2; O2SAT 98; BMI 34.0
[2020-10-14] MEDS: lidocaine 1% INJ 20 mL INTRADERMA (23:37)
[2020-10-14] MEDS: hyDROXYzine 25 mg Capsule PO (23:37)
[2020-10-14] MEDS: methylPREDNISolone (DEPO) 80 MG/ML INJ 1 mL IM (23:37)
[2020-10-14 23:51] VITALS: BP 134/78; PULSE 86; RESP 16; O2SAT 98
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
== END 2020-10-14 23:53 | disposition home or self-care (01) ==
PROVIDERS: Emergency Provider Nurse Practitioner Family
DX: L02.412 Cutaneous abscess of left axilla (principal); L24.7 Irritant contact dermatitis due to plants, except food; J45.909 Unspecified asthma, uncomplicated; E66.9 Obesity, unspecified; Z68.34 Body mass index [BMI] 34.0-34.9, adult; F17.200 Nicotine dependence, unspecified, uncomplicated
CPT/HCPCS: 10060; 87070; 87077; 87186; 96372; 99283; J1040

== ENCOUNTER 2020-10-24 21:35 | Emergency (ER) | payer MEDICARE, MEDICAID, SELFPAY ==
[2020-10-24 21:44] VITALS: BP 131/83; PULSE 107; TEMP 36.8; O2SAT 100; BMI 31.1
[2020-10-24 21:56] VITALS: BP 125/82; PULSE 104; RESP 16; O2SAT 99
--- NOTE | 2020-10-24 22:09 | ED_ITS ---
HPI - Skin/Abscess/Foreign Bdy General: Chief complaint: Skin/Abscess/Foreign Body Stated complaint: Absesses that need to be lanced Time Seen by Provider: 10/24/20 21:37 History of Present Illness: HPI narrative: Patient is a 30-year-old female comes to the ED with abscess. Patient has 1 abscess on her left thigh and the other one on her left upper abdomen. Says both started approximately 3 days ago. She has a history of getting an abscess and has been seen here multiple times in the ED for same complaint over the past year. Denies any fever, chills, nausea/vomiting, abdominal pain, bladder or bowel symptoms. She is currently not on any antibiotics. Associated symptoms: Deny chills, fever(s), nausea or vomiting Review of Systems Const: Denies: fever(s), chills or fatigue Eyes: Denies: change in vision or eye discomfort ENMT: Denies: throat pain, odynophagia, nasal discharge or nasal congestion Card: Denies: chest pain, palpitations, edema, swelling of feet/ankles, dyspnea on exertion or orthopnea Resp: Denies: dyspnea, productive cough or non-productive cough GI: Denies: abdominal pain, nausea, vomiting, diarrhea, constipation or hematochezia : Denies: flank pain, dysuria or hematuria Musc: Denies: neck pain, back pain or extremity swelling Skin/Breast: Reports: new lesions (Abscess on left thigh and left upper abdomen.); Denies: rash Neuro: Denies: headache(s), numbness in extremities or weakness in extremities [facility] ED PFSH: Medical History Anxiety and depression Asthma Crohn's disease Irritable bowel syndrome Obesity PTSD (post-traumatic stress disorder) Seizure disorder Surgical History H/O adenoidectomy H/O: hysterectomy History of appendectomy History of tonsillectomy Family History Other Cancer Social History Smoking and tobacco status: current every day smoker Physical Exam Const: COMMON NORMALS: no acute distress, patient oriented x3 and alert GENERAL APPEARANCE: cooperative and comfortable HENMT: COMMON NORMALS: normocephalic HEAD & SCALP: normocephalic MOUTH: Normal oral and palatal mucosa present THROAT: posterior oropharynx normal and uvula midline Neck/C-Spine: COMMON NORMALS: supple GENERAL: Yes normal visual inspection Resp: COMMON NORMALS: normal respiratory effort, No retractions, No use of accessory muscles and clear to auscultation bilaterally AUSCULTATION: clear to auscultation bilaterally Cardio: COMMON NORMALS: regular rate, regular rhythm, S1 normal heart sound present, S2 normal heart sound present, No gallops present (Cardio), No clicks present (Cardio), No murmurs present (Cardio) and Peripheral pulses 2+ throughout RATE: regular rate RHYTHM: regular rhythm HEART SOUNDS: S1 normal heart sound present and S2 normal heart sound present PERIPHERAL PULSES: Peripheral pulses 2+ throughout GI: COMMON NORMALS: Normal to inspection, nondistended, normoactive bowel sounds present, Soft to palpation, non-tender and no masses PALPATION: Yes Soft to palpation : COMMON NORMALS: Yes no CVA tenderness BLADDER/KIDNEY EXAM: Yes no CVA tenderness Back/Pelvis: COMMON NORMALS: no CVA tenderness Extremity: NARRATIVE EXTREMITY EXAM: Left thigh?tender, fluctuant and warm nodule approximately 2.5 cm in diameter. surrounding erythema. No purulent drainage noted. Findings suggestive of an abscess. GENERAL: Yes normal exam except as noted Neuro: COMMON NORMALS: patient oriented x3 and moves all extremities SENSORIUM/ORIENTATION: Yes alert Skin: NARRATIVE SKIN EXAM: Left thigh?tender, fluctuant and warm nodule approximately 2.5 cm in diameter. surrounding erythema. No purulent drainage noted. Findings suggestive of an abscess. Left upper quadrant of abdomen?tender, fluctuant and warm nodule approximately 1 cm in diameter. surrounding erythema. No purulent drainage noted. Findings suggestive of an abscess. GENERAL SKIN EXAM: dry skin Procedures Abscess I/D Site: abdomen (Left Upper Quandrant- 1 cm abscess) and lower extremity (left thigh- 2.5 cm abscess) Sedation/analgesia: none Local Anesthetic: lidocaine 1% and with epi Amount of anesthesia used (mL): 20 Technique: incised with #11 blade Amount of fluid expressed (mL): 5 (Malodorous bloody and purulent drainage.) Irrigation: No Packing used?: iodoform Course Vital Signs: Vital signs: Vital Signs Temperature 98.3 F 10/24/20 21:44 Pulse Rate 104 H 10/24/20 21:56 Respiratory Rate 16 10/24/20 21:56 Blood Pressure 125/82 10/24/20 21:56 Pulse Oximetry 99 10/24/20 21:56 MDM - Skin/Abscess/Foreign Bdy MDM Narrative: Medical decision making narrative: Patient is a 30-year-old female comes to the ED with an abscess on left thigh and on left upper abdomen. Abscess I&D was performed and lidocaine 1% with epi was used as local. Iodine packing was placed in the 2 abscesses. Patient was told to have packing removed in 48 hours and she was sent home with a prescription for antibiotics. Return to ED precautions given. Patient understood agree with plan. Discharge Plan Discharge Patient Disposition: Home Clinical Impression: Abscess Condition: Stable Prescriptions: New clindamycin HCl 150 mg capsule 300 mg PO QID 7 Days Qty: 56 RF: 0 sulfamethoxazole-trimethoprim 800-160 mg tablet 1 tab PO BID 7 Days Qty: 14 RF: 0 No Action dicyclomine [Bentyl] 10 mg/mL Solution 10 mg IM TID RF: 0 prednisone 20 mg Tablet 20 mg PO DAILY RF: 0 mupirocin 2 % ointment 1 applic topical BID Qty: 22 RF: 0 amlodipine 5 mg tablet 5 mg PO DAILY RF: 0 Vyvanse 70 mg Capsule 70 mg PO QAM RF: 0 aripiprazole 10 mg Tablet 10 mg PO DAILY 30 Days Qty: 30 RF: 1 Xanax 1 mg tablet 1 mg PO QID 15 Days Qty: 60 RF: 1 trazodone 150 mg tablet 150 mg PO BEDTIME 30 Days Qty: 30 RF: 1 escitalopram oxalate 20 mg tablet 20 mg PO DAILY 30 Days Qty: 30 RF: 1 topiramate 50 mg tablet 50 mg PO DAILY 30 Days Qty: 30 RF: 0 ketorolac 10 mg tablet 10 mg PO TID PRN (Reason: pain) Qty: 10 RF: 0 Discharge Orders: Discharge ED (Routine); Ordered 10/24/20 Ordered By: Mika Tirado Discharge Diet: Regular Discharge Activity: Resume usual activity Patient Instructions: Abscess Incision and Drainage (ED), Abscess (ED) Activity Restrictions/Additional Instructions: Follow-up with medical provider as directed in 24 to 48 hours to have packing removed. take medications as prescribed. Take [id number] Tylenol or Motrin for any pain. Return to the ER or your medical provider if condition worsens. Please read and understand discharge instructions. Thank you for choosing [facility] for your healthcare needs today. Please realize this is an emergency room and that we are providing you with a medical screening exam and this may not be complete and all inclusive of all the testing and or work up that you may need to determine your ailment or severity of your illness. It is very important that you follow up as instructed or that you return to the Emergency Department should you have concerns or if your condition changes or worsens in any way. Coding Level of Care Code ED Factory Clerk for Tulio Quevedo Exam Comprehensive
[2020-10-24] MEDS: HYDROcodone-acetaminophen 5-325 mg Tablet 1 TAB PO (23:39)
[2020-10-24] MEDS: clindamycin 150 mg Capsule 300 MG PO (23:39)
== END 2020-10-24 23:43 | disposition home or self-care (01) ==
PROVIDERS: Emergency Provider Physician Assistant
DX: L02.416 Cutaneous abscess of left lower limb (principal); L02.211 Cutaneous abscess of abdominal wall; F17.210 Nicotine dependence, cigarettes, uncomplicated
CPT/HCPCS: 10060; 10061; 99283

== ENCOUNTER 2020-11-16 04:08 | Emergency (ER) | payer MEDICARE, MEDICAID, SELFPAY ==
[2020-11-16 04:18] VITALS: BP 133/89; PULSE 102; RESP 15; TEMP 37.2; O2SAT 99; BMI 24.0
--- NOTE | 2020-11-16 04:27 | ED_ITS ---
HPI - General Adult General: Chief complaint: General Medical Stated complaint: Cant Breathe or Talk Time Seen by Provider: 11/16/20 04:15 Source: patient Mode of arrival: ambulatory Limitations: no limitations History of Present Illness: HPI narrative: 30-year-old female states she did have swelling to her upper lip over the last day. She denies any history of this in the past. She does have some mild swelling to the upper lip. She has no swelling to her posterior pharynx denies any shortness of breath or trouble swallowing. Denies any rash. Denies any fevers. Denies any worsening proving factors. States she does have some pain to that lip as well. Associated symptoms: Deny chest pain, dyspnea, headache(s), nausea, rash or vomiting Review of Systems Const: Denies: fever(s), chills, body aches or change in appetite Eyes: Denies: blurry vision or eye discomfort ENMT: Reports: swelling of lips/tongue Card: Denies: chest pain Resp: Denies: dyspnea GI: Denies: abdominal pain, nausea, vomiting or diarrhea : Denies: dysuria Musc: Denies: neck pain or back pain Skin/Breast: Denies: rash Neuro: Denies: headache(s) Psych: Denies: depression Nixon/Lymph: Denies: easy bruising All/Imm: Denies: urticaria PFSH ED PFSH: Medical History (Updated 11/16/20 @ 04:39 by Wan Calvo MD) Anxiety and depression Asthma Crohn's disease Irritable bowel syndrome Obesity PTSD (post-traumatic stress disorder) Seizure disorder Surgical History H/O adenoidectomy H/O: hysterectomy History of appendectomy History of tonsillectomy Family History Other Cancer Social History Smoking and tobacco status: current every day smoker Physical Exam Const: COMMON NORMALS: no acute distress, patient oriented x3 and healthy appearing HENMT: COMMON NORMALS: normocephalic and atraumatic HEAD & SCALP: normocephalic and atraumatic OTHER: Slight swelling to upper lip no posterior pharynx swelling no difficulty swallowing. Eye: COMMON NORMALS: Equal, round and reactive pupils present and EOMs intact bilaterally PUPIL: Yes Equal, round and reactive pupils present Neck/C-Spine: COMMON NORMALS: full ROM and supple Chest: COMMONS NORMALS: normal inspection of the chest and normal palpation of entire chest wall Resp: COMMON NORMALS: normal respiratory effort, No retractions, No use of accessory muscles and clear to auscultation bilaterally AUSCULTATION: clear to auscultation bilaterally Cardio: COMMON NORMALS: regular rate, regular rhythm and No murmurs present (Cardio) RATE: regular rate RHYTHM: regular rhythm GI: COMMON NORMALS: Normal to inspection, nondistended, normoactive bowel sounds present, Soft to palpation, non-tender and no masses PALPATION: Yes Soft to palpation Extremity: COMMON NORMALS: normal to inspection and full ROM Neuro: COMMON NORMALS: patient oriented x3, moves all extremities and no focal motor deficits Psych: COMMON NORMALS: mental status grossly normal, Normal thought process present and cooperative THOUGHT PROCESS: Normal thought process present Skin: COMMON NORMALS: no rashes or lesions noted and no wounds GENERAL SKIN EXAM: no rashes or lesions noted Course Vital Signs: Vital signs: Vital Signs Temperature 99.0 F 11/16/20 04:18 Pulse Rate 102 H 11/16/20 04:18 Respiratory Rate 15 11/16/20 04:18 Blood Pressure 133/89 11/16/20 04:18 Pulse Oximetry 99 11/16/20 04:18 MDM - General Adult MDM Narrative: Medical decision making narrative: Patient presents here with upper lip swelling that is likely allergic in nature. Patient is improving here is no signs of airway involvement we will place her on prednisone at home. She is stable for discharge follow-up PCP and return if worsening. Discharge Plan Discharge Patient Disposition: Home Clinical Impression: Swelling of upper lip Condition: Stable Prescriptions: New prednisone 50 mg tablet 50 mg PO DAILY Qty: 5 RF: 0 No Action dicyclomine [Bentyl] 10 mg/mL Solution 10 mg IM TID RF: 0 prednisone 20 mg Tablet 20 mg PO DAILY RF: 0 mupirocin 2 % ointment 1 applic topical BID Qty: 22 RF: 0 amlodipine 5 mg tablet 5 mg PO DAILY RF: 0 Vyvanse 70 mg Capsule 70 mg PO QAM RF: 0 aripiprazole 10 mg Tablet 10 mg PO DAILY 30 Days Qty: 30 RF: 1 Xanax 1 mg tablet 1 mg PO QID 15 Days Qty: 60 RF: 1 trazodone 150 mg tablet 150 mg PO BEDTIME 30 Days Qty: 30 RF: 1 escitalopram oxalate 20 mg tablet 20 mg PO DAILY 30 Days Qty: 30 RF: 1 topiramate 50 mg tablet 50 mg PO DAILY 30 Days Qty: 30 RF: 0 ketorolac 10 mg tablet 10 mg PO TID PRN (Reason: pain) Qty: 10 RF: 0 Discharge Orders: Discharge ED (Routine); Ordered 11/16/20 Ordered By: Wan Calvo Discharge Diet: Advance as tolerated Discharge Activity: Resume usual activity Patient Instructions: Allergic Reaction Coding Level of Care Code ED Presidential Support Specialist for Tulio Fwalex Exam Comprehensive
[2020-11-16] MEDS: diphenhydrAMINE 50 mg/mL SDV 1mL IM (05:05)
[2020-11-16] MEDS: predniSONE 20 mg Tablet 60 MG PO (05:15)
[2020-11-16] MEDS: famotidine 20 mg Tablet 40 MG PO (05:15)
--- NOTE | 2020-11-16 05:48 | PC.NURSE ---
after 4 unsuccessful IV attempts, notified to change route to IM for adm. Pt never requested to stop IV attempts. After order changed, pt was not in the room for med adm. Security called to report elopement. Registration called to report that pt was in the waiting room, visibly upset stating No one is trying to help me . Registration informed to have pt return to exam room for med adm and DC instructions. After pt returned, Pt informed that benadryl will be adm via IM and remainder of meds adm PO per MD orders. After med adm, pt became upset stating the meds she was given Has nothing to do with my diagnosis and You poked me full of holes . Pt informed that 4 attempts were made. Pt states more than four attempts were made and pointed to both AC areas stating that the holes in the AC space were the IV attempts and that she was going to show everyone all the holes you made . Pt then left the room speaking loudly to everyone in her presence, including security. Security informed pt that she may file a complaint with HR. Charge nurse and MD notified
[2020-11-16 06:00] VITALS: BP 124/87; PULSE 96; RESP 20; O2SAT 99
== END 2020-11-16 05:35 | disposition home or self-care (01) ==
LOC: ER 04:45
PROVIDERS: Emergency Provider Emergency Medicine
DX: M79.89 Other specified soft tissue disorders (principal); F17.210 Nicotine dependence, cigarettes, uncomplicated
CPT/HCPCS: 96372; 99283; J1200; J7512

== ENCOUNTER 2020-11-18 13:05 | Emergency (ER) | payer MEDICARE, MEDICAID, SELFPAY ==
--- NOTE | 2020-11-18 13:08 | W.ED.DENTAL ---
HPI - Dental/Oral General: Chief complaint: Dental/Oral Stated complaint: tooth pain, face swelling Time Seen by Provider: 11/18/20 13:08 Source: patient Mode of arrival: ambulatory Limitations: no limitations History of Present Illness: HPI Narrative: 30-year-old female presents to the ER today for a dental infection. Patient reports this started last week and she was seen by her PCP on Thursday and started on penicillin and Bactrim. Patient reports the swelling and pain have continued and worsened at this time. She reports she has a bad right front tooth causing this issue. Patient reports pain is a 10 out of 10 and she has been unable to eat or drink this weekend much. Subjective fever reported however they have not checked at home. Patient reports she does not have a dentist at this time. Patient denies headache, ear pain, congestion, runny nose, sore throat, chest pain, shortness of breath, nausea, vomiting, diarrhea, constipation, change in bowel or bladder habits. MD Complaint: tooth pain Teeth map: 1. abscessed Onset (ago): day(s) (3-4) Duration: constant Severity: severe Severity scale (1-10): 10 Relieving factors: nothing Exacerbating factors: chewing and drinking fluids Context: history of dental caries and poor dental care Associated symptoms: Reports fever(s) Treatment prior to arrival: oral analgesic Review of Systems Const: Reports: fever(s); Denies: chills or fatigue ENMT: Reports: dental pain; Denies: throat pain, nasal discharge or nasal congestion Card: Denies: chest pain or palpitations Resp: Denies: dyspnea or wheezing GI: Denies: abdominal pain, nausea, vomiting, diarrhea or constipation Musc: Denies: extremity pain Skin/Breast: Denies: rash Neuro: Denies: headache(s) [facility] [place] [facility] PFSH: Medical History (Updated 11/18/20 @ 13:44 by Miguelina Lewis PA-C) Anxiety and depression Asthma Crohn's disease Irritable bowel syndrome Obesity PTSD (post-traumatic stress disorder) Seizure disorder Surgical History H/O adenoidectomy H/O: hysterectomy History of appendectomy History of tonsillectomy Family History Other Cancer Social History Smoking and tobacco status: current every day smoker Physical Exam Const: COMMON NORMALS: average body habitus and patient oriented x3; apparent distress (moderate distress) GENERAL APPEARANCE: cooperative; not comfortable and not well kempt HENMT: COMMON NORMALS: normocephalic, external ears normal and Normal external nose present HEAD & SCALP: normocephalic FACE & SINUS: sinus tenderness and other (Patient has moderate facial swelling upper lip and into sinuses) FACE & SINUS IMAGES: 1. moderate swelling NOSE: Normal external nose present EXTERNAL EAR: Yes external ears normal MOUTH: tongue normal and other (Dry mouth noted); lip not normal (Upper lip swollen) TEETH & GINGIVA: Yes abnormal tooth and associated gingiva and Yes caries THROAT: posterior oropharynx normal Neck/C-Spine: COMMON NORMALS: full ROM Lymph: LYMPHATIC: no lymphadenopathy noted Resp: COMMON NORMALS: normal respiratory effort, No retractions and clear to auscultation bilaterally AUSCULTATION: clear to auscultation bilaterally Cardio: COMMON NORMALS: regular rate, regular rhythm and No murmurs present (Cardio) RATE: regular rate RHYTHM: regular rhythm GI: COMMON NORMALS: Normal to inspection, nondistended, normoactive bowel sounds present, Soft to palpation and non-tender PALPATION: Yes Soft to palpation Extremity: COMMON NORMALS: normal to inspection and full ROM Neuro: COMMON NORMALS: patient oriented x3 and moves all extremities Psych: COMMON NORMALS: mental status grossly normal, Normal thought process present and cooperative APPEARANCE: No well kempt THOUGHT PROCESS: Normal thought process present Skin: COMMON NORMALS: no rashes or lesions noted GENERAL SKIN EXAM: no rashes or lesions noted Course ED course: Patient presents to the ER today for dental abscess. Patient has moderate to severe swelling of the face after 48 hours of antibiotics orally. Given the significant swelling we will go ahead with a CT of the sinuses. We will start patient on IV clindamycin and fluids as she has not been able to eat or drink for the last 48 hours. Reevaluation(s): Reevaluation #1: Patient resting comfortably in room with fluids and medicine going. Time: 14:32 Vital Signs: Vital signs: Vital Signs Temperature 97.7 F 11/18/20 15:35 Pulse Rate 94 11/18/20 15:35 Respiratory Rate 16 11/18/20 15:35 Blood Pressure 113/77 11/18/20 15:35 Pulse Oximetry 98 11/18/20 15:35 MDM - Dental/Oral MDM Narrative: Medical decision making narrative: 30-year-old female presents to the ER today for dental abscess x4 to 5 days. Patient was seen by PCP on Thursday and started on Bactrim and penicillin with no improvement. Patient reports worsening swelling at this time and pain. Patient was given IV clindamycin and fluids in the ER given her decreased fluid intake. Patient is resting comfortably and does not complain of pain at this time. CT was performed and does indicate abscess of the right maxillary central incisor. It also indicates mild soft tissue swelling as noted on physical exam. We will send patient home on clindamycin, Toradol, and topical viscous lidocaine. Patient has a history of drug abuse so we will not do any controlled at this time. Discussed the importance with patient following up with a dentist in the next 5 to 7 days. Return to the ER with any new or worsening symptoms. Lab Data: Attestation: I reviewed the patient's lab results. Labs: Lab Results 11/18/20 11/18/20 13:45 13:45 WBC 9.8 10^3/uL 10^3/ uL (4.0-10.0) RBC 4.03 10^6/uL L 10 ^6/uL (4.1-5.3) Hgb 11.3 g/dL L g/dL (11.5-15.3) Hct 35.2 % L % (37.0-47.0) MCV 87.3 fl fl (81-99) MCH 28.0 pg pg (28.0-34.0) MCHC 32.1 g/dL g/dL (30.0-36.0) RDW 13.8 % % (12.1-15.1) Plt Count 202 10^3/cmm 10^3 /cmm (130-400) MPV 10.2 fL fL (7.4-10.4) Neut % (Auto) 66.5 % % Lymph % (Auto) 25.6 % % [place] % (Auto) 4.5 % % Eos % (Auto) 2.9 % % Baso % (Auto) 0.2 % % Neut # (Auto) 6.54 10^3/uL 10^3 /uL (1.8-7.7) Lymph # (Auto) 2.5 10^3/uL 10^3/ uL (0.8-4.8) [place] # (Auto) 0.4 10^3/uL 10^3/ uL (0.2-0.9) Eos # (Auto) 0.3 10^3/uL 10^3/ uL (0.0-0.8) Baso # (Auto) 0.0 10^3/uL 10^3/ uL (0.0-0.1) Nucleated RBC % (a uto) 0 % % Nucleated RBCs # 0.0 /100WBC /100W BC Sodium 137 mmol/L mmol/L (136-145) Potassium 3.5 mmol/L mmol/L (3.5-5.1) Chloride 102 mmol/L mmol/L (98-107) Carbon Dioxide 24 mmol/L mmol/L (22-29) Anion Gap 14.5 (5-19) BUN 6 mg/dL mg/dL (6-20) Creatinine 0.6 mg/dL mg/dL (0.5-0.9) GFR Calculation 115.9 mL/min mL/m in (90-130) Glucose 144 mg/dL H mg/dL (65-115) Calculated Osmolal ity 284 mOsm/kg L mOs m/kg (285-295) Calcium 8.8 mg/dL mg/dL (8.5-10.5) Total Bilirubin 0.2 mg/dL mg/dL (0.15-1.2) AST 25 U/L U/L (0-32) ALT 40 U/L H U/L (0-33) Alkaline Phosphata se 95 IU/L IU/L (35-105) Total Protein 6.7 g/dL g/dL (6.6-8.7) Albumin 3.3 g/dL L g/dL (3.5-5.2) Globulin 3.4 g/dL g/dL (1.3-4.6) Imaging Data^: Other CT: Radiologist's impression: [address] [address] [address] Scan Report Signed Patient: Zuleyma Bryant [id number] 1990 [id number] Age/Sex: 30 / F ADM Date: 11/18/20 Loc: ER Room/Bed: Attending Dr: Ordering Provider/Ordering MD: Miguelina Lewis Date of Service: 11/18/20 Procedure(s): CT sinus wo con* [id number] Accession Number(s): [id number] Report Number: [id number] PROCEDURE INFORMATION: Exam: CT Maxillofacial Without Contrast, Sinus Exam date and time: 11/18/2020 1:36 PM Age: 30 years old Clinical indication: Mass, lump, or swelling; Maxilla; Patient HX: Upper tooth infection w facial swelling; Additional info: Dental infection TECHNIQUE: Imaging protocol: CT Maxillofacial without contrast. Focus on the sinuses. Radiation optimization: All CT scans at this facility use at least one of these dose optimization techniques: automated exposure control; mA and/or kV adjustment per patient size (includes targeted exams where dose is matched to clinical indication); or iterative reconstruction. COMPARISON: CT facial bones wo con* [id number] 07/22/2020 2:06 AM RADIATION DOSE METRICS: Total DLP (mGy-cm): 511.79 FINDINGS: Frontal sinuses: Mild right frontal sinus disease. Ethmoid air cells: Mild bilateral ethmoid sinus disease. Sphenoid sinuses: Normal. No air-fluid levels. Maxillary sinuses: Mild bilateral maxillary sinus disease. Nasal cavity/Septum: Unremarkable. Orbital cavity: Orbits are normal. Globes are unremarkable. Bones/joints: Unremarkable. Soft tissues: 1.2 cm low-density lesion the upper lip soft tissues anterior to the tooth abscess suggesting phlegmon versus developing abscess. Axial series 2, image 6. Mild soft tissue swelling involving the upper lip, right nose, right anterior cheek and right orbit. Dental: Examination is limited secondary to metallic artifact from dental fillings and/or dental hardware. Periapical lucency/tooth abscess involving the right maxillary central incisor. CT/CT sinus wo con* [id number] IMPRESSION: 1. Periapical lucency/tooth abscess involving the right maxillary central incisor. 2. Mild soft tissue swelling involving the upper lip, right nose, right anterior cheek and right orbit. 3. [id number] bilateral paranasal sinus disease. Radiation Dose CTDIVOL = (mGy): DLP = 511.79 (mGy-cm) Dictated By: Aime Gates MD Signed By: Aime Gates MD Signed Date/Time: 11/18/201612 DD/ 12 Critical Care Time Critical Care Time: Critical Care Time: No Discharge Plan Discharge Patient Disposition: Home Clinical Impression: Abscess, dental Condition: Stable Prescriptions: New clindamycin HCl 300 mg capsule 300 mg PO Q6H 7 Days Qty: 28 RF: 0 ketorolac 10 mg tablet 10 mg PO Q8H PRN (Reason: pain) 3 Days RF: 0 Lidocaine Viscous 2 % solution 1 applic mucous membrane Q3H PRN (Reason: pain) 3 Days Qty: 100 RF: 0 No Action dicyclomine [Bentyl] 10 mg/mL Solution 10 mg IM TID RF: 0 prednisone 20 mg Tablet 20 mg PO DAILY RF: 0 mupirocin 2 % ointment 1 applic topical BID Qty: 22 RF: 0 prednisone 50 mg tablet 50 mg PO DAILY Qty: 5 RF: 0 amlodipine 5 mg tablet 5 mg PO DAILY RF: 0 Vyvanse 70 mg Capsule 70 mg PO QAM RF: 0 aripiprazole 10 mg Tablet 10 mg PO DAILY 30 Days Qty: 30 RF: 1 Xanax 1 mg tablet 1 mg PO QID 15 Days Qty: 60 RF: 1 trazodone 150 mg tablet 150 mg PO BEDTIME 30 Days Qty: 30 RF: 1 escitalopram oxalate 20 mg tablet 20 mg PO DAILY 30 Days Qty: 30 RF: 1 topiramate 50 mg tablet 50 mg PO DAILY 30 Days Qty: 30 RF: 0 ketorolac 10 mg tablet 10 mg PO TID PRN (Reason: pain) Qty: 10 RF: 0 Discharge Orders: Discharge ED (Routine); Ordered 11/18/20 Ordered By: Miguelina Lewis Discharge Diet: Advance as tolerated Discharge Activity: Resume usual activity Patient Instructions: Opioid Safety Activity Restrictions/Additional Instructions: Stop penicillin and Bactrim and take clindamycin as prescribed. Take Toradol as prescribed, do not take any other anti-inflammatory such as ibuprofen or aspirin or Aleve. You may take Tylenol every 6 hours as needed for pain. Apply topical viscous lidocaine for pain. Push fluids. Follow-up with dentist in 5 to 7 days. Return to the ER with any new or worsening symptoms. Coding Level of Care Code ED Broadcast Traffic Coordinator for Chg Fwd Exam Comprehensive
[2020-11-18 13:18] VITALS: BP 101/73; PULSE 123; RESP 24; TEMP 37.7; O2SAT 95; BMI 28.9
[2020-11-18 13:28] VITALS: BP 120/85; PULSE 101; RESP 22; TEMP 36.9; O2SAT 99
--- NOTE | 2020-11-18 13:36 | CTR_ITS ---
PROCEDURE INFORMATION: Exam: CT Maxillofacial Without Contrast, Sinus Exam date and time: 11/18/2020 1:36 PM Age: 30 years old Clinical indication: Mass, lump, or swelling; Maxilla; Patient HX: Upper tooth infection w facial swelling; Additional info: Dental infection TECHNIQUE: Imaging protocol: CT Maxillofacial without contrast. Focus on the sinuses. Radiation optimization: All CT scans at this facility use at least one of these dose optimization techniques: automated exposure control; mA and/or kV adjustment per patient size (includes targeted exams where dose is matched to clinical indication); or iterative reconstruction. COMPARISON: CT facial bones wo con* [id number] 07/22/2020 2:06 AM RADIATION DOSE METRICS: Total DLP (mGy-cm): 511.79 FINDINGS: Frontal sinuses: Mild right frontal sinus disease. Ethmoid air cells: Mild bilateral ethmoid sinus disease. Sphenoid sinuses: Normal. No air-fluid levels. Maxillary sinuses: Mild bilateral maxillary sinus disease. Nasal cavity/Septum: Unremarkable. Orbital cavity: Orbits are normal. Globes are unremarkable. Bones/joints: Unremarkable. Soft tissues: 1.2 cm low-density lesion the upper lip soft tissues anterior to the tooth abscess suggesting phlegmon versus developing abscess. Axial series 2, image 6. Mild soft tissue swelling involving the upper lip, right nose, right anterior cheek and right orbit. Dental: Examination is limited secondary to metallic artifact from dental fillings and/or dental hardware. Periapical lucency/tooth abscess involving the right maxillary central incisor. CT/CT sinus wo con* [id number] IMPRESSION: 1. Periapical lucency/tooth abscess involving the right maxillary central incisor. 2. Mild soft tissue swelling involving the upper lip, right nose, right anterior cheek and right orbit. 3. Wzea-[id number] bilateral paranasal sinus disease. Radiation Dose CTDIVOL = (mGy): DLP = 511.79 (mGy-cm)
[2020-11-18] MEDS: ketorolac 30 mg/mL INJ 15 MG IVP (13:50)
[2020-11-18] MEDS: sodium chloride 0.9% 1,000 ML 999 ML IV (13:51)
[2020-11-18 13:58] LABS: Basophils % 0.2 %; Eosinophils # 0.3 10^3/uL (0.0-0.8); Eosinophils % 2.9 %; Hematocrit 35.2 % (37.0-47.0); Hemoglobin 11.3 g/dL (11.5-15.3); Lymphocytes # 2.5 10^3/uL (0.8-4.8); Lymphocytes % 25.6 %; Mean Corpuscular HGB Conc 32.1 g/dL (30.0-36.0); Mean Corpuscular Volume 87.3 fl (81-99); Mean Platelet Volume 10.2 fL (7.4-10.4); Monocytes # 0.4 10^3/uL (0.2-0.9); Monocytes % 4.5 %; Neutrophils # 6.54 10^3/uL (1.8-7.7); Neutrophils % 66.5 %; Nucleated Red Blood Cells % 0 %; Platelet Count 202 10^3/cmm (130-400); Red Blood Count 4.03 10^6/uL (4.1-5.3); Red Cell Distribution Width 13.8 % (12.1-15.1); White Blood Count 9.8 10^3/uL (4.0-10.0)
[2020-11-18] MEDS: clindamycin 600 MG/50 ML PREMIX 100 MG IV (14:06)
[2020-11-18 14:22] LABS: Alanine Aminotransferase 40 U/L (0-33); Albumin Level 3.3 g/dL (3.5-5.2); Alkaline Phosphatase 95 IU/L (35-105); Anion Gap 14.5 (5-19); Aspartate Amino Transferase 25 U/L (0-32); Blood Urea Nitrogen 6 mg/dL (6-20); Calcium 8.8 mg/dL (8.5-10.5); Carbon Dioxide 24 mmol/L (22-29); Chloride 102 mmol/L (98-107); Globulin 3.4 g/dL (1.3-4.6); Glomerular Filtration Rate 115.9 mL/min (90-130); Glucose 144 mg/dL (65-115); Osmolality Calculated 284 mOsm/kg (285-295); Potassium 3.5 mmol/L (3.5-5.1); Sodium 137 mmol/L (136-145); Total Bilirubin 0.2 mg/dL (0.15-1.2); Total Protein 6.7 g/dL (6.6-8.7)
[2020-11-18 14:50] VITALS: BP 111/79; PULSE 100; RESP 16; TEMP 37.1; O2SAT 99
[2020-11-18 15:35] VITALS: BP 113/77; PULSE 94; RESP 16; TEMP 36.5; O2SAT 98
[2020-11-18 16:47] VITALS: BP 102/57; PULSE 96; RESP 16; TEMP 36.6; O2SAT 100
== END 2020-11-18 17:01 | disposition home or self-care (01) ==
PROVIDERS: Emergency Provider Physician Assistant
DX: K04.7 Periapical abscess without sinus (principal); F17.210 Nicotine dependence, cigarettes, uncomplicated
CPT/HCPCS: 70486; 80053; 85025; 96365; 96375; 99284; J1100; J1885; J3490; J7030

== ENCOUNTER 2020-11-18 20:52 | Emergency (ER) | payer MEDICARE, MEDICAID, SELFPAY ==
--- NOTE | 2020-11-18 21:36 | W.ED.DENTAL ---
HPI - Dental/Oral General: Chief complaint: General Medical Stated complaint: tooth pain Time Seen by Provider: 11/18/20 21:35 History of Present Illness: HPI Narrative: Patient comes in tonight for breakthrough pain for her periapical abscess. Patient had been seen earlier today and had CT scan done due to some increased swelling in the frontal face. It was noted that the right central maxillary incisor had a periapical abscess with surrounding facial swelling. Patient denies any problems swallowing. Patient reports significant pain. Patient appears mildly unwell but not toxic. Patient appears in moderate pain. Review of Systems General: Reports: 10 or more systems reviewed and unremarkable except in HPI and below ENMT: Reports: other (Dental pain) Skin/Breast: Reports: other (Facial swelling) [facility] ED PFSH: Medical History (Updated 11/18/20 @ 21:46 by ZHENG Gilmore) Anxiety and depression Asthma Crohn's disease Irritable bowel syndrome Obesity PTSD (post-traumatic stress disorder) Seizure disorder Surgical History H/O adenoidectomy H/O: hysterectomy History of appendectomy History of tonsillectomy Family History Other Cancer Social History Smoking and tobacco status: current every day smoker Physical Exam Const: COMMON NORMALS: no acute distress and patient oriented x3 GENERAL APPEARANCE: cooperative HENMT: COMMON NORMALS: TM's normal bilaterally and Normal external nose present HEAD & SCALP: other (facial swelling upper lip) NOSE: Normal external nose present TYMPANIC MEMBRANE: TM's normal bilaterally MOUTH: other (Swelling to the gumline of the central maxillary incisors.) THROAT: posterior oropharynx normal Eye: GENERAL EYE: appearance normal, both eyes and all related structures Neck/C-Spine: COMMON NORMALS: full ROM Lymph: LYMPHATIC: no lymphadenopathy noted Chest: COMMONS NORMALS: normal inspection of the chest Resp: COMMON NORMALS: normal respiratory effort EFFORT & INSPECTION: Yes able to speak in complete sentences Cardio: COMMON NORMALS: regular rate and regular rhythm RATE: regular rate RHYTHM: regular rhythm GI: COMMON NORMALS: non-tender Extremity: COMMON NORMALS: normal to inspection Neuro: COMMON NORMALS: patient oriented x3 and moves all extremities Psych: COMMON NORMALS: mental status grossly normal and cooperative Skin: COMMON NORMALS: no rashes or lesions noted GENERAL SKIN EXAM: no rashes or lesions noted Course Vital Signs: Vital signs: Vital Signs Temperature 98.9 F 11/18/20 21:39 Pulse Rate 107 H 11/18/20 21:39 Respiratory Rate 12 11/18/20 21:39 Blood Pressure 136/84 11/18/20 21:39 Pulse Oximetry 98 11/18/20 21:39 MDM - Dental/Oral MDM Narrative: Medical decision making narrative: [facility]. Patient was seen earlier today for complaints of swelling to the face and dental pain. At that time patient was diagnosed with a dental abscess and started on antibiotics. On exam patient appears to be in moderate pain. Patient has significant swelling to the upper facial lip. Differential diagnosis includes gingival abscess, dental caries, cellulitis, tooth ache. Reviewed CT scan that noted a periapical abscess of the central maxillary incisor. We gave patient another round of clindamycin 600 mg along with 10 mg of dexamethasone to assist with swelling of the face. Patient was given 1 tablet of hydrocodone for pain. Patient will be continued on dexamethasone and hydrocodone for pain. Patient was also instructed to continue with clindamycin antibiotic as ordered. Patient reported understanding and agreed to plan. Differential Diagnosis: Dental Differential Diagnosis: Likely gingival abscess, dental caries, toothache and dental abscess Discharge Plan Discharge Patient Disposition: Home Clinical Impression: Periapical abscess with facial involvement Condition: Stable Prescriptions: New hydrocodone-acetaminophen 5-325 mg tablet 1 tab PO Q6H PRN (Reason: pain) Qty: 10 RF: 0 dexamethasone 4 mg tablet 4 mg PO BID Qty: 6 RF: 0 No Action dicyclomine [Bentyl] 10 mg/mL Solution 10 mg IM TID RF: 0 prednisone 20 mg Tablet 20 mg PO DAILY RF: 0 mupirocin 2 % ointment 1 applic topical BID Qty: 22 RF: 0 prednisone 50 mg tablet 50 mg PO DAILY Qty: 5 RF: 0 clindamycin HCl 300 mg capsule 300 mg PO Q6H 7 Days Qty: 28 RF: 0 ketorolac 10 mg tablet 10 mg PO Q8H PRN (Reason: pain) 3 Days RF: 0 Lidocaine Viscous 2 % solution 1 applic mucous membrane Q3H PRN (Reason: pain) 3 Days Qty: 100 RF: 0 amlodipine 5 mg tablet 5 mg PO DAILY RF: 0 Vyvanse 70 mg Capsule 70 mg PO QAM RF: 0 aripiprazole 10 mg Tablet 10 mg PO DAILY 30 Days Qty: 30 RF: 1 Xanax 1 mg tablet 1 mg PO QID 15 Days Qty: 60 RF: 1 trazodone 150 mg tablet 150 mg PO BEDTIME 30 Days Qty: 30 RF: 1 escitalopram oxalate 20 mg tablet 20 mg PO DAILY 30 Days Qty: 30 RF: 1 topiramate 50 mg tablet 50 mg PO DAILY 30 Days Qty: 30 RF: 0 ketorolac 10 mg tablet 10 mg PO TID PRN (Reason: pain) Qty: 10 RF: 0 Discharge Orders: Discharge ED (Routine); Ordered 11/18/20 Ordered By: Richard Angel Discharge Diet: Usual diet Discharge Activity: Increase activity as tolerated Patient Instructions: Opioid Safety Activity Restrictions/Additional Instructions: Continue with clindamycin prescription as prescribed earlier today. Take dexamethasone 1 tablet twice a day for the next 3 days to help with the swelling. Use hydrocodone as needed for severe pain. Continue with the ketorolac and acetaminophen for control of pain. Use ice or heat for further pain relief. Follow-up with primary care for further instruction. Return to the ER for new concerns. Follow-up with dentist for definitive care. Coding Level of Care Code ED Base Manager for Tulio Quevedo Exam Comprehensive
[2020-11-18 21:39] VITALS: BP 136/84; PULSE 107; RESP 12; TEMP 37.2; O2SAT 98
[2020-11-18] MEDS: HYDROcodone-acetaminophen 7.5-325 mg Tablet 1 TAB PO (21:52)
[2020-11-18 22:03] VITALS: BP 147/101; PULSE 98; RESP 16; TEMP 38.3; O2SAT 100
[2020-11-18 22:23] VITALS: BP 126/89; PULSE 98
--- NOTE | 2020-11-18 22:23 | PC.NURSE ---
Iv attempt made by this nurse x2 without success.
[2020-11-18] MEDS: dexamethasone 10 mg/mL INJ IVP (22:38)
[2020-11-18] MEDS: clindamycin 600 MG/50 ML PREMIX 100 MG IV (22:38)
[2020-11-18 22:41] VITALS: TEMP 37.7
[2020-11-18 22:56] VITALS: BP 129/88; PULSE 94; RESP 16; TEMP 37.3; O2SAT 97
--- NOTE | 2020-11-18 23:11 | PC.NURSE ---
Patient requested a cab be called. Levi Godwin is not here to pick her up.
== END 2020-11-18 23:12 | disposition home or self-care (01) ==
PROVIDERS: Emergency Provider Nurse Practitioner Family
DX: K04.7 Periapical abscess without sinus (principal); F17.210 Nicotine dependence, cigarettes, uncomplicated
CPT/HCPCS: 96365; 96375; 99284; J1100; J3490

== ENCOUNTER 2021-02-17 21:36 | Emergency (ER) | payer MEDICARE, MEDICAID, SELFPAY ==
[2021-02-17 21:38] VITALS: BP 155/80; PULSE 120; RESP 22; TEMP 36.7; O2SAT 98; BMI 29.2
--- NOTE | 2021-02-17 21:43 | XRR_ITS ---
PROCEDURE INFORMATION: Exam: XR Right Hand Exam date and time: 02/17/2021 9:43 PM Age: 30 years old Clinical indication: Injury or trauma; Other: Table saw lac; Injury details: Laceration palm of right hand, lac on middle finger table saw TECHNIQUE: Imaging protocol: XR Right hand. Views: 3 or more views. Total images: 3 COMPARISON: No relevant prior studies available. FINDINGS: Bones/joints: No visible acute osseous abnormality, fracture, subluxation, or dislocation. No radiographically visible joint effusion. Soft tissues: Soft tissue swelling. No visible radiopaque foreign body. XR/XR hand RT min 3V* [id number] IMPRESSION: 1. No visible fracture. 2. Soft tissue swelling.
--- NOTE | 2021-02-17 21:43 | W.ED.UPPEXIN ---
Documented by User: ZHENG Gilmore 02/17/21 23:27 HPI - Extremity Injury (Upper) General: Chief Complaint: Extremity Injury, Upper Stated Complaint: Injury Rt Hand Cut with Table Saw Time Seen by Provider: 02/17/21 21:42 History of Present Illness: HPI narrative: Patient comes in for injuries to the right hand secondary to a table saw. Patient was helping her spouse with a table saw and accidentally cut her hand on the right thenar region of the palm and the dorsal middle finger. Patient has normal movement of the hand but is very guarded due to pain and discomfort. Injury occurred about 30 minutes prior to arrival to the ER. Patient cannot recall her last tetanus shot. Patient appears well. Patient appears in no acute distress. Review of Systems General: Reports: 10 or more systems reviewed and unremarkable except in HPI and below Skin/Breast: Reports: other (laceration hand) [facility] ED PFSH: Medical History (Updated 02/17/21 @ 22:56 by ZHENG Gilmore) Anxiety and depression Asthma Crohn's disease Irritable bowel syndrome Obesity PTSD (post-traumatic stress disorder) Seizure disorder Surgical History H/O adenoidectomy H/O: hysterectomy History of appendectomy History of tonsillectomy Family History Other Cancer Social History Smoking and tobacco status: current every day smoker Physical Exam Const: COMMON NORMALS: no acute distress and patient oriented x3 GENERAL APPEARANCE: cooperative HENMT: COMMON NORMALS: normocephalic and Normal external nose present HEAD & SCALP: normal to inspection and normocephalic NOSE: Normal external nose present MOUTH: Normal oral and palatal mucosa present THROAT: posterior oropharynx normal Eye: GENERAL EYE: appearance normal, both eyes and all related structures Neck/C-Spine: COMMON NORMALS: full ROM Lymph: LYMPHATIC: no lymphadenopathy noted Chest: COMMONS NORMALS: normal inspection of the chest Resp: COMMON NORMALS: normal respiratory effort EFFORT & INSPECTION: Yes able to speak in complete sentences Cardio: COMMON NORMALS: regular rate and regular rhythm RATE: regular rate RHYTHM: regular rhythm GI: COMMON NORMALS: non-tender : COMMON NORMALS: Yes no CVA tenderness BLADDER/KIDNEY EXAM: Yes no CVA tenderness Back/Pelvis: COMMON NORMALS: no CVA tenderness and thoracic and lumbar spine normal to inspection Extremity: COMMON NORMALS: normal to inspection Neuro: COMMON NORMALS: patient oriented x3 and moves all extremities Psych: COMMON NORMALS: mental status grossly normal and cooperative Skin: COMMON NORMALS: no rashes or lesions noted GENERAL SKIN EXAM: no rashes or lesions noted Procedures Laceration Laceration 1: Site: hand Side (If applicable): right Size (cm): 3 Description: irregular Depth: simple, single layer Local Anesthetic: lidocaine 1% and with epi Amount of anesthesia used (mL): 4 Pre-repair: wound explored, irrigated extensively, deep structures intact and wound margins revised Skin layer closed with: nylon Size (cm): 4-0 Number of sutures: 5 Technique: simple, interrupted and horizontal mattress Laceration 2: Site: hand (3rd finger) Side (If applicable): right Size (cm): 1 Description: irregular Depth: simple, single layer Local Anesthetic: lidocaine 1% and with epi Amount of anesthesia used (mL): 2 Pre-repair: wound explored, irrigated extensively and wound margins revised Skin layer closed with: nylon Size (cm): 4-0 Number of sutures: 3 Technique: simple, interrupted Course Vital Signs: Vital signs: Vital Signs Temperature 98.1 F 02/17/21 21:38 Pulse Rate 98 02/17/21 23:17 Respiratory Rate 18 02/17/21 23:17 Blood Pressure 118/78 02/17/21 23:17 Pulse Oximetry 99 02/17/21 23:17 MDM - Extremity Injury (Upper) MDM Narrative: Medical decision making narrative: 30-year-old female comes in today with injury to the right hand secondary to using a table saw. On exam patient has some superficial lacerations to the thenar area of the right palm, and the dorsal aspect of the third digit. Patient also has a superficial injury to the distal thumb. Patient has normal range of motion of the hand but is guarded with movement due to pain. Cap refill is intact and sensation is intact in all digits. Pulses are intact to the wrist. Differential diagnosis includes fracture, tendon injury, foreign body. X-rays of the hand indicated no fracture or foreign bodies. Wounds were irrigated thoroughly and margins were revised with some mild debridement. Wounds were approximated loosely to the thenar hand and to the dorsal finger. Patient tolerated well recommended leaving dressing intact for the next 3 days and then follow-up with primary care for recheck. Sutures should come out in 7 days. Patient was placed on antibiotics cephalexin 3 times a day for the next 7 days. Recommended patient return to the ER for high fever or new concerns. Patient reported understanding. Discharge Plan Discharge Patient Disposition: Home Clinical Impression: Laceration of hand Qualifiers: Encounter type: initial encounter Foreign body presence: without foreign body Laterality: right Qualified Code(s): S61.411A - Laceration without foreign body of right hand, initial encounter Condition: Stable Prescriptions: New cephalexin 500 mg capsule 500 mg PO Q8H 7 Days Qty: 21 RF: 0 hydrocodone-acetaminophen 5-325 mg tablet 1 tab PO Q8H PRN (Reason: pain) Qty: 6 RF: 0 No Action dicyclomine [Bentyl] 10 mg/mL Solution 10 mg IM TID RF: 0 prednisone 20 mg Tablet 20 mg PO DAILY RF: 0 mupirocin 2 % ointment 1 applic topical BID Qty: 22 RF: 0 prednisone 50 mg tablet 50 mg PO DAILY Qty: 5 RF: 0 amlodipine 5 mg tablet 5 mg PO DAILY RF: 0 Vyvanse 70 mg Capsule 70 mg PO QAM RF: 0 aripiprazole 10 mg Tablet 10 mg PO DAILY 30 Days Qty: 30 RF: 1 Xanax 1 mg tablet 1 mg PO QID 15 Days Qty: 60 RF: 1 trazodone 150 mg tablet 150 mg PO BEDTIME 30 Days Qty: 30 RF: 1 escitalopram oxalate 20 mg tablet 20 mg PO DAILY 30 Days Qty: 30 RF: 1 topiramate 50 mg tablet 50 mg PO DAILY 30 Days Qty: 30 RF: 0 ketorolac 10 mg tablet 10 mg PO TID PRN (Reason: pain) Qty: 10 RF: 0 hydrocodone-acetaminophen 5-325 mg tablet 1 tab PO Q6H PRN (Reason: pain) Qty: 10 RF: 0 dexamethasone 4 mg tablet 4 mg PO BID Qty: 6 RF: 0 Discharge Orders: Discharge ED (Routine); Ordered 02/17/21 Ordered By: Richard Angel Discharge Diet: Usual diet Discharge Activity: Increase activity as tolerated Patient Instructions: Laceration (ED), Opioid Safety Activity Restrictions/Additional Instructions: Keep wound clean and dry. Leave the initial dressing on for the next 2 days. After that change the dressing daily to keep it wound protected. Follow-up with primary care in 7 days for suture removal. Return to the ER for fever greater than 100.4, or new concerns. Coding Level of Care Code ED Investigative Research Specialist for [employer] Exam Comprehensive Documented by User: Todd Kramer DO 02/18/21 02:10 HPI - Extremity Injury (Upper) General: Chief Complaint: Extremity Injury, Upper Stated Complaint: Injury Rt Hand Cut with Table Saw Time Seen by Provider: 02/17/21 21:42 [facility] ED PFSH: Medical History (Updated 02/17/21 @ 22:56 by ZHENG Gilmore) Anxiety and depression Asthma Crohn's disease Irritable bowel syndrome Obesity PTSD (post-traumatic stress disorder) Seizure disorder Surgical History H/O adenoidectomy H/O: hysterectomy History of appendectomy History of tonsillectomy Family History Other Cancer Social History Smoking and tobacco status: current every day smoker Course Vital Signs: Vital signs: Vital Signs Temperature 98.1 F 02/17/21 21:38 Pulse Rate 98 02/17/21 23:17 Respiratory Rate 18 02/17/21 23:17 Blood Pressure 118/78 02/17/21 23:17 Pulse Oximetry 99 02/17/21 23:17 MDM - Extremity Injury (Upper) MDM Narrative: Medical decision making narrative: This patient was originally seen by ZHENG Oliva. I agree with his history, evaluation, and treatment. Discharge Plan Discharge Patient Disposition: Home Clinical Impression: Laceration of hand Qualifiers: Encounter type: initial encounter Foreign body presence: without foreign body Laterality: right Qualified Code(s): S61.411A - Laceration without foreign body of right hand, initial encounter Condition: Stable Prescriptions: New cephalexin 500 mg capsule 500 mg PO Q8H 7 Days Qty: 21 RF: 0 hydrocodone-acetaminophen 5-325 mg tablet 1 tab PO Q8H PRN (Reason: pain) Qty: 6 RF: 0 No Action dicyclomine [Bentyl] 10 mg/mL Solution 10 mg IM TID RF: 0 prednisone 20 mg Tablet 20 mg PO DAILY RF: 0 mupirocin 2 % ointment 1 applic topical BID Qty: 22 RF: 0 prednisone 50 mg tablet 50 mg PO DAILY Qty: 5 RF: 0 amlodipine 5 mg tablet 5 mg PO DAILY RF: 0 Vyvanse 70 mg Capsule 70 mg PO QAM RF: 0 aripiprazole 10 mg Tablet 10 mg PO DAILY 30 Days Qty: 30 RF: 1 Xanax 1 mg tablet 1 mg PO QID 15 Days Qty: 60 RF: 1 trazodone 150 mg tablet 150 mg PO BEDTIME 30 Days Qty: 30 RF: 1 escitalopram oxalate 20 mg tablet 20 mg PO DAILY 30 Days Qty: 30 RF: 1 topiramate 50 mg tablet 50 mg PO DAILY 30 Days Qty: 30 RF: 0 ketorolac 10 mg tablet 10 mg PO TID PRN (Reason: pain) Qty: 10 RF: 0 hydrocodone-acetaminophen 5-325 mg tablet 1 tab PO Q6H PRN (Reason: pain) Qty: 10 RF: 0 dexamethasone 4 mg tablet 4 mg PO BID Qty: 6 RF: 0 Discharge Orders: Discharge ED (Routine); Ordered 02/17/21 Ordered By: Richard Angel Discharge Diet: Usual diet Discharge Activity: Increase activity as tolerated Patient Instructions: Laceration (ED), Opioid Safety Activity Restrictions/Additional Instructions: Keep wound clean and dry. Leave the initial dressing on for the next 2 days. After that change the dressing daily to keep it wound protected. Follow-up with primary care in 7 days for suture removal. Return to the ER for fever greater than 100.4, or new concerns. Coding Level of Care Code ED Investigative Research Specialist for [employer] Exam Comprehensive
[2021-02-17] MEDS: tetanus-dipt-pertussis 0.5 mL SDV IM (22:07)
[2021-02-17] MEDS: cephALEXin 500 mg Capsule PO (22:07)
[2021-02-17] MEDS: HYDROcodone-acetaminophen 7.5-325 mg Tablet 1 TAB PO (22:07)
[2021-02-17] MEDS: LORazepam 0.5 mg Tablet PO (22:23)
[2021-02-17 23:17] VITALS: BP 118/78; PULSE 98; RESP 18; O2SAT 99
== END 2021-02-17 23:18 | disposition home or self-care (01) ==
PROVIDERS: Emergency Provider Nurse Practitioner Family
DX: S61.411A Laceration without foreign body of right hand, initial encounter (principal); S61.212A Laceration without foreign body of right middle finger without damage to nail, initial encounter; W27.0XXA Contact with workbench tool, initial encounter; F17.210 Nicotine dependence, cigarettes, uncomplicated; Z23 Encounter for immunization
CPT/HCPCS: 12002; 73130; 90471; 90715; 99283

== ENCOUNTER 2021-04-27 14:56 | Emergency (ER) | payer MEDICARE, MEDICAID, SELFPAY ==
[2021-04-27 15:05] VITALS: BP 133/73; PULSE 103; RESP 18; TEMP 36.4; O2SAT 96; BMI 29.2
--- NOTE | 2021-04-27 15:11 | ED.C_ITS ---
HPI - Psych General: Chief Complaint: Psychiatric Symptoms Stated Complaint: Mental Health Eval Time Seen by Provider: 04/27/21 15:07 History of Present Illness: Ms Bryant is a 31-year-old lady with significant past medical history of substance abuse, Crohn's disease, psychiatric disorder presents emergency department due to chest pain and bilateral foot pain. She endorses bilateral foot burning sensation which radiates up the leg starting a number of months ago. This occurs intermittently and is not associated with swelling or particular situations. Intensity of symptoms is moderate when present and course has persisted. Additionally 5 days ago she began developing occasional shortness of breath and 3 days ago some intermittent chest discomfort which is pressure in the middle of her chest without significant radiation. She denies exertional component or other typical cardiac features. She denies similar episodes in past. She thinks she has previously had an abnormal EKG that was evaluated with ultrasound and was told that she has a leaky valve . Overall the course of symptoms has persisted. Intensity when present is moderate. No other specific exacerbating relieving factors identified. She does appear significantly anxious and is unsure if this is related to a panic attack or not. She has intermittent compliance with medications however feels that her current symptoms are anxiety and not related to lucas associated with her bipolar. She adamantly denies suicidal or homicidal ideation. She denies physical injuries. She denies any hallucinations or other psychiatric concerns other than feeling anxious mostly due to the current situation. Onset (ago): day(s) Review of Systems General: Reports: 10 or more systems reviewed and unremarkable except in HPI and below PFSH ED PFSH: Medical History (Updated 05/08/21 @ 06:11 by Pineda Gonzales MD) Anxiety and depression Asthma Crohn's disease Irritable bowel syndrome Obesity PTSD (post-traumatic stress disorder) Seizure disorder Surgical History H/O adenoidectomy H/O: hysterectomy History of appendectomy History of tonsillectomy Family History Other Cancer Social History Smoking and tobacco status: current every day smoker Physical Exam Const: COMMON NORMALS: alert GENERAL APPEARANCE: cooperative and well developed HENMT: COMMON NORMALS: normocephalic and atraumatic HEAD & SCALP: normocephalic and atraumatic Eye: COMMON NORMALS: conjunctivae normal CONJUNCTIVA: Yes conjunctivae normal SCLERA: sclerae normal Neck/C-Spine: COMMON NORMALS: supple GENERAL: Yes trachea midline Resp: COMMON NORMALS: normal respiratory effort and clear to auscultation bilaterally EFFORT & INSPECTION: Yes able to speak in complete sentences AUSCULTATION: clear to auscultation bilaterally Cardio: COMMON NORMALS: regular rate and regular rhythm RATE: regular rate RHYTHM: regular rhythm GI: COMMON NORMALS: Soft to palpation PALPATION: Yes Soft to palpation and No Tenderness to palpation present (GI) PERCUSSION: normal to percussion Extremity: NARRATIVE EXTREMITY EXAM: Bilateral feet without evidence of wounds or acute abnormality. CMS intact. GENERAL: Yes normal exam except as noted and No edema Neuro: COMMON NORMALS: moves all extremities SENSORIUM/ORIENTATION: Yes alert and No Orientation impaired Psych: MOOD & AFFECT: Yes anxious OTHER: see ED course Course ED course: - Patient was seen and evaluated by me at bedside - Vital signs obtained - Initial evaluation notable for exam as above, patient is very anxious. - Shortly after arrival in emergency department patient expressed the desire to leave. Extensive discussion with the patient regarding her current symptoms. She does understand that without further evaluation I cannot be sure the cause of her symptoms and potentially life-threatening situations may be present. She adamantly denies suicidal or homicidal ideation. She is is oriented to person, place, and time, has the capacity to make decisions regarding the medical care offered. The patient speaks coherently and exhibits no evidence of having an altered level of consciousness or alcohol or drug intoxication to a point that would impair judgment. She responds knowingly to questions about recommended treatment and alternate treatments including no further testing or treatment. Her thought process is linear and goal oriented. Her reasoning for leaving is she has to leave because of work. - While I am concerned regarding her symptoms and not being able to perform an ED evaluation I do not believe that there is indication at this time to hold the patient against her will. - She understands that she may return to the emergency department for any reason anytime. - Ambulated from the emergency department with a steady gait and left AGAINST MEDICAL ADVICE. Vital Signs: Vital signs: Vital Signs Temperature 97.6 F 04/27/21 15:05 Pulse Rate 103 H 04/27/21 15:05 Respiratory Rate 18 04/27/21 15:05 Blood Pressure 133/73 04/27/21 15:05 Pulse Oximetry 96 04/27/21 15:05 MDM - Psych Medical Decision Making 31 yo F presenting with chest pain and bilateral foot pain. Patient is very anxious and uncertain of symptoms. Shortly after arrival the patient ended up leaving AGAINST MEDICAL ADVICE, no indication for involuntary hold. Ambulatory from Emergency department in satisfactory condition. Medical Records I reviewed the patient's medical records. Lab Data I reviewed the patient's lab results. EKG Data EKG 1: I personally reviewed and interpreted this EKG as follows: EKG interpretation date: 04/27/21 EKG interpretation time: 15:23 Interpretation: Twelve-lead EKG shows a regular rhythm at a rate of 94. [place] interval 133, QRS duration 83, QTc 418. Normal axis. Interpretation: Sinus rhythm. Nonspecific ST segment abnormalities. Discharge Plan Discharge Patient Disposition: Left Against Medical Advice Clinical Impression: Anxiety, Chest pain Condition: Stable Prescriptions: No Action dicyclomine [Bentyl] 10 mg/mL Solution 10 mg IM TID 0RF amlodipine 5 mg tablet 5 mg PO DAILY 0RF aripiprazole 10 mg Tablet 10 mg PO DAILY 30 Days Qty: 30 1RF alprazolam [Xanax] 1 mg tablet 1 mg PO QID 15 Days Qty: 60 1RF trazodone 150 mg tablet 150 mg PO BEDTIME 30 Days Qty: 30 1RF escitalopram oxalate 20 mg tablet 20 mg PO DAILY 30 Days Qty: 30 1RF topiramate 50 mg tablet 50 mg PO DAILY 30 Days Qty: 30 0RF Adderall XR 5 mg Capsule,Extended Release 24hr 5 mg PO DAILY 0RF Discharge Orders: Discharge ED (Routine); Ordered 04/27/21 Ordered By: Pineda Gonzales Stand Alone Forms: Against Medical Advice Coding Level of Care Code ED Cyber Security Architect for Tulio Quevedo
== END 2021-04-27 16:13 | disposition left against medical advice (07) ==
PROVIDERS: Emergency Provider Emergency Medicine
DX: F41.9 Anxiety disorder, unspecified (principal); R07.9 Chest pain, unspecified; F17.210 Nicotine dependence, cigarettes, uncomplicated; Z79.899 Other long term (current) drug therapy
CPT/HCPCS: 99281

== ENCOUNTER → 2021-08-06 19:11 | Outpatient (BNVA) | payer MEDICARE, MEDICAID, SELFPAY | PROVIDERS: PCP Nurse Practitioner; Visit Provider Registered Nurse Neonatal Intensive Care | DX: Z20.2 Contact with and (suspected) exposure to infections with a predominantly sexual mode of transmission (principal) | CPT/HCPCS: 87491; 87591; 87661 ==

== ENCOUNTER 2021-08-22 19:26 | Observation (INO) | payer MEDICARE, MEDICAID, SELFPAY ==
[2021-08-22 19:34] VITALS: PULSE 94; RESP 20; TEMP 37.1; O2SAT 95
[2021-08-22 19:40] VITALS: BP 109/67
--- NOTE | 2021-08-22 19:49 | ED_ITS ---
HPI - SOB/Dyspnea General: Chief Complaint: Shortness of Breath/Dyspnea Stated Complaint: sob Time Seen by Provider: 08/22/21 19:43 Source: patient and family Mode of arrival: ambulatory Limitations: no limitations History of Present Illness: HPI Narrative: Patient returns to the emergency department because of increasing difficulty with breathing and coughing. She was seen in this emergency department yesterday and diagnosed as having community-acquired pneumonia and started on Levaquin. Patient as well as her spouse states that she has taken her medication and try to use her albuterol inhaler today but she is increasingly more short of breath with coughing. She has a history of asthma. She denies any history of congestive heart failure, thromboembolic events etc. She has a tobacco user. She states she is not any nausea vomiting or diarrhea today. MD elicited complaint: shortness of breath and cough Pertinent past history: pneumonia Context: recent illness Timing: progressively worsening Exacerbating factors: coughing Known history of: asthma Associated symptoms: Deny abdominal pain, extremity pain, fever(s), hemoptysis, nausea, palpitations, polydipsia, polyuria, syncope or vomiting Treatment prior to arrival: bronchodilator Review of Systems Const: Reports: body aches; Denies: fever(s) or chills Eyes: Denies: change in vision ENMT: Denies: throat pain, odynophagia or nasal congestion Card: Denies: palpitations, irregular heart rhythm or syncope Resp: Reports: dyspnea, productive cough, wheezing and pain on inspiration; Denies: hemoptysis GI: Denies: abdominal pain, nausea, vomiting or diarrhea : Denies: flank pain, difficulty voiding, dysuria or urinary frequency Musc: Denies: neck pain, back pain, extremity pain or extremity swelling Skin/Breast: Denies: rash or pruritus Neuro: Denies: headache(s), numbness in extremities or weakness in extremities Psych: Denies: depression Endo: Denies: polyuria or polydipsia PFSH ED PFSH: Medical History (Updated 08/22/21 @ 22:38 by Wiley Rodriguez DO) Anxiety and depression Asthma Crohn's disease Irritable bowel syndrome Obesity PTSD (post-traumatic stress disorder) Seizure disorder Surgical History H/O adenoidectomy H/O: hysterectomy History of appendectomy History of tonsillectomy Family History Other Cancer Social History Smoking and tobacco status: current every day smoker Physical Exam Narrative: EXAM NARRATIVE: Patient appears to be anxious and breathless. She is able to speak in 1-2 word sentences. Const: COMMON NORMALS: patient oriented x3 GENERAL APPEARANCE: anxious and ill appearing ORIENTATION/CONSCIOUSNESS: Yes awake HENMT: COMMON NORMALS: normocephalic, atraumatic, Normal nasal mucous membranes and turbinates present, moist oral mucous membranes and oropharynx normal HEAD & SCALP: normocephalic and atraumatic NOSE: Normal nasal mucous membranes and turbinates present Eye: COMMON NORMALS: Equal, round and reactive pupils present, EOMs intact bilaterally and conjunctivae normal CONJUNCTIVA: Yes conjunctivae normal PUPIL: Yes Equal, round and reactive pupils present Neck/C-Spine: COMMON NORMALS: full ROM, supple, no meningeal signs, no JVD and No carotid bruits Chest: COMMONS NORMALS: normal inspection of the chest Resp: EFFORT & INSPECTION: Yes uses accessory muscles AUSCULTATION: rhonchi throughout and wheezes expiratory wheezes and inspiratory wheezes Cardio: COMMON NORMALS: no JVD, regular rate, regular rhythm, No murmurs present (Cardio) and Peripheral pulses 2+ throughout RATE: regular rate and tachycardic RHYTHM: regular rhythm PERIPHERAL PULSES: Peripheral pulses 2+ throughout GI: COMMON NORMALS: Normal to inspection, nondistended, normoactive bowel sounds present, Soft to palpation and non-tender PALPATION: Yes Soft to p alpation : COMMON NORMALS: Yes no CVA tenderness BLADDER/KIDNEY EXAM: Yes no CVA tenderness Back/Pelvis: COMMON NORMALS: no CVA tenderness, thoracic and lumbar spine normal to inspection and no thoracic nor lumbar tenderness Extremity: COMMON NORMALS: normal to inspection, capillary refill normal, no clubbing, cyanosis or edema and no calf tenderness Neuro: COMMON NORMALS: patient oriented x3, moves all extremities, no focal motor deficits and no sensory deficits noted MENINGEAL SIGNS: Yes no meningeal signs CRANIAL NERVES: Yes CN normal except as noted Psych: COMMON NORMALS: mental status grossly normal Skin: COMMON NORMALS: no rashes or lesions noted, turgor normal and no jaundice GENERAL SKIN EXAM: no rashes or lesions noted and turgor normal Course Reevaluation(s): Reevaluation #1: After DuoNeb she has some better air movement still has scattered rhonchi and a few expiratory wheezes. We will go ahead and give her a second DuoNeb treatment while waiting for IV access. Time: 20:40 Consultations: Consultation #1: Discussed with attending hospitalist who agreed with admission and made treatment request. Time: 22:37 Vital Signs: Vital signs: Vital Signs Temperature 98.7 F 08/22/21 19:34 Pulse Rate 111 H 08/22/21 21:37 Respiratory Rate 16 08/22/21 21:33 Blood Pressure 109/67 08/22/21 19:40 Pulse Oximetry 100 08/22/21 21:33 MDM - SOB/Dyspnea Medical Decision Making Patient returns to the emergency department because of increasing cough and difficulty breathing. She was diagnosed as having a right lower lobe pneumonia while in the emergency department yesterday and has not responded to outpatient therapy thus far. Her clinical examination does not suggest sepsis at this time but she has significant skeletal García findings and a clinical picture that would would be best served by at least short inpatient duration of therapy. The patient is agreeable to such plan. We will go ahead and begin IV antibiotics, as well as COVID testing. And plan for admission. Differential Diagnosis Likely community acquired pneumonia Medical Records I reviewed the patient's medical records. Lab Data I reviewed the patient's lab results. : 08/22/21 21:19 08/22/21 21:19 Labs/Radiology: Laboratory Results WBC 11.7 10^3/uL (4.0-10.0) H 08/22/21 21:19 RBC 5.07 10^6/uL (4.1-5.3) 08/22/21 21:19 Hgb 14.2 g/dL (11.5-15.3) 08/22/21 21:19 Hct 42.1 % (37.0-47.0) 08/22/21 21:19 MCV 83.0 fl (81-99) 08/22/21 21:19 MCH 28.0 pg (28.0-34.0) 08/22/21 21: MCHC 33.7 g/dL (30.0-36.0) 08/22/21 21:19 RDW 12.7 % (12.1-15.1) 08/22/21 21:19 Plt Count 215 10^3/cmm (130-400) 08/22/21 21:19 MPV 10.7 fL (7.4-10.4) H 08/22/21 21:19 Neut % (Auto) 77.2 % 08/22/21 21:19 Lymph % (Auto) 16.1 % 08/22/21 21:19 [place] % (Auto) 5.5 % 08/22/21 21:19 Eos % (Auto) 0.0 % 08/22/21 21:19 Baso % (Auto) 0.3 % 08/22/21 21:19 Neut # (Auto) 9.03 10^3/uL (1.8-7.7) H 08/22/21 21:19 Lymph # (Auto) 1.9 10^3/uL (0.8-4.8) 08/22/21 21:19 [place] # (Auto) 0.6 10^3/uL (0.2-0.9) 08/22/21 21:19 Eos # (Auto) 0.0 10^3/uL (0.0-0.8) 08/22/21 21:19 Baso # (Auto) 0.0 10^3/uL (0.0-0.1) 08/22/21 21:19 Nucleated RBC % (auto) 0 % 08/22/21 21:19 Nucleated RBCs # 0.0 /100WBC 08/22/21 21:19 Sodium 134 mmol/L (136-145) L 08/22/21 21:19 Potassium 3.7 mmol/L (3.5-5.1) 08/22/21 21:19 Chloride 96 mmol/L (98-107) L 08/22/21 21:19 Carbon Dioxide 24 mmol/L (22-29) 08/22/21 21:19 Anion Gap 17.7 (5-19) 08/22/21 21:19 BUN 9 mg/dL (6-20) 08/22/21 21:19 Creatinine 0.8 mg/dL (0.5-0.9) 08/22/21 21:19 GFR Calculation 82.6 mL/min (90-130) L 08/22/21 21:19 Glucose 95 mg/dL (65-115) 08/22/21 21:19 Calculated Osmolality 276 mOsm/kg (285-295) L 08/22/21 21:19 Lactic Acid 2.0 mmol/L (0.5-2.2) 08/22/21 21:19 Calcium 9.6 mg/dL (8.5-10.5) 08/22/21 21:19 Total Bilirubin 0.7 mg/dL (0.15-1.2) 08/22/21 21:19 AST 49 U/L (0-32) H 08/22/21 21:19 ALT 106 U/L (0-33) H 08/22/21 21:19 Alkaline Phosphatase 150 IU/L (35-105) H 08/22/21 21:19 Total Protein 8.1 g/dL (6.6-8.7) 08/22/21 21:19 Albumin 3.9 g/dL (3.5-5.2) 08/22/21 21:19 Globulin 4.2 g/dL (1.3-4.6) 08/22/21 21:19 Discharge Plan Discharge Patient Disposition: Admitted As Inpatient Clinical Impression: Right lower lobe pneumonia, Reactive airway disease Condition: Stable Prescriptions: No Action amlodipine 5 mg tablet 5 mg PO DAILY PRN (Reason: Blood Pressure) 0RF fluticasone propion-salmeterol 250-50 mcg/dose blister with device 1 ea INHALATION BID PRN (Reason: asthma) 0RF aspirin 325 mg Tablet 325 mg PO Q4H PRN (Reason: Pain) 0RF Rx Instructions: while awake alprazolam 1 mg tablet 1 mg PO . DIRECTED PRN (Reason: Anxiety) 0RF dicyclomine 20 mg tablet 20 mg PO QID PRN (Reason: colitis) 0RF aripiprazole 30 mg tablet 30 mg PO DAILY PRN (Reason: unknown) 0RF levofloxacin 500 mg tablet 500 mg PO DAILY 7 Days Qty: 7 0RF albuterol sulfate 90 mcg/actuation aerosol powdr breath activated 2 inh INHALATION Q4H PRN (Reason: shortness of breath or wheezing) Qty: 1 0RF Coding Level of Care Code ED Aerial Hurricane Hunter for Chg Fwd Exam Comprehensive
[2021-08-22 20:04] VITALS: PULSE 112; RESP 18; O2SAT 100
[2021-08-22] MEDS: ipratropium-albuterol 3 mL Neb INHALATION ×2 (20:04→21:33)
[2021-08-22 20:11] VITALS: PULSE 113
--- NOTE | 2021-08-22 21:03 | PC.NURSE ---
difficulty obtained IV at bedside. Danny RN at bedside attempting ultrasound iv at this time. patient in no obvious distress at this time.
[2021-08-22] MEDS: sodium chloride 0.9% 1,000 ML 999 ML IV (21:25)
[2021-08-22 21:33] VITALS: PULSE 114; RESP 16; O2SAT 100
[2021-08-22 21:37] VITALS: PULSE 111
[2021-08-22 21:44] LABS: Basophils % 0.3 %; Hematocrit 42.1 % (37.0-47.0); Hemoglobin 14.2 g/dL (11.5-15.3); Lymphocytes # 1.9 10^3/uL (0.8-4.8); Lymphocytes % 16.1 %; Mean Corpuscular HGB Conc 33.7 g/dL (30.0-36.0); Mean Platelet Volume 10.7 fL (7.4-10.4); Monocytes # 0.6 10^3/uL (0.2-0.9); Monocytes % 5.5 %; Neutrophils # 9.03 10^3/uL (1.8-7.7); Neutrophils % 77.2 %; Nucleated Red Blood Cells % 0 %; Platelet Count 215 10^3/cmm (130-400); Red Blood Count 5.07 10^6/uL (4.1-5.3); Red Cell Distribution Width 12.7 % (12.1-15.1); White Blood Count 11.7 10^3/uL (4.0-10.0)
[2021-08-22 21:53] LABS: Alanine Aminotransferase 106 U/L (0-33); Albumin Level 3.9 g/dL (3.5-5.2); Alkaline Phosphatase 150 IU/L (35-105); Anion Gap 17.7 (5-19); Aspartate Amino Transferase 49 U/L (0-32); Blood Urea Nitrogen 9 mg/dL (6-20); Calcium 9.6 mg/dL (8.5-10.5); Carbon Dioxide 24 mmol/L (22-29); Chloride 96 mmol/L (98-107); Creatinine Clr Calc Pharmacy 99.0325; Globulin 4.2 g/dL (1.3-4.6); Glomerular Filtration Rate 82.6 mL/min (90-130); Glucose 95 mg/dL (65-115); Osmolality Calculated 276 mOsm/kg (285-295); Potassium 3.7 mmol/L (3.5-5.1); Sodium 134 mmol/L (136-145); Total Bilirubin 0.7 mg/dL (0.15-1.2); Total Protein 8.1 g/dL (6.6-8.7)
[2021-08-22] MEDS: cefTRIAXone 2,000 MG in sodium chloride 0.9% (plus) 50 ML 100 MG IV (23:01)
[2021-08-22] MEDS: azithromycin 500 MG in sodium chloride 0.9% 250 ML 250 MG IV (23:25)
[2021-08-23] VITALS (14 sets, daily range): BP systolic 93–133; BP diastolic 59–79; PULSE 69–100; RESP 15–22; TEMP 36.3–36.8; O2SAT 94–100
[2021-08-23 00:57] LABS: Adenovirus Not Detected (NOT DETECT); Chlamydia Pneumoniae Not Detected (NOT DETECT); Coronavirus 229E,HKU1,NL63,OC4 Not Detected (NOT DETECT); Human Metapneumovirus Not Detected (NOT DETECT); Human Rhinovirus/Enterovirus Not Detected (NOT DETECT); Influenza A Not Detected (NOT DETECT); Influenza A H1 Not Detected (NOT DETECT); Influenza A H1-2009 Not Detected (NOT DETECT); Influenza A H3 Not Detected (NOT DETECT); Influenza B Not Detected (NOT DETECT); Mycoplasma Pneumoniae Detected (NOT DETECT); Parainfluenza Virus Type 1 Not Detected (NOT DETECT); Parainfluenza Virus Type 2 Not Detected (NOT DETECT); Parainfluenza Virus Type 3 Not Detected (NOT DETECT); Parainfluenza Virus Type 4 Not Detected (NOT DETECT); Respiratory Syncytial Virus A Not Detected (NOT DETECT); Respiratory Syncytial Virus B Not Detected (NOT DETECT); SARS-COV-2 Not Detected (NOT DETECT)
[2021-08-23 00:57] LABS: Chlamydia Pneumoniae Not Detected (NOT DETECT); Mycoplasma Pneumoniae Detected (NOT DETECT); Results from Genmark
--- NOTE | 2021-08-23 01:39 | XRR_ITS ---
PROCEDURE INFORMATION: Exam: XR Chest Exam date and time: 08/23/2021 2:47 AM Age: 31 years old Clinical indication: Fever; Additional info: Rll pneumonia TECHNIQUE: Imaging protocol: Radiologic exam of the chest. Views: 1 view. COMPARISON: CR XR chest 1V portable [id number] 08/21/2021 11:54 AM FINDINGS: Lungs: Opacities are present in the right upper lower lobes and have progressed since the previous examination. Pleural spaces: Unremarkable. No pleural effusion. No pneumothorax. Heart/Mediastinum: Unremarkable. No cardiomegaly. Bones/joints: Unremarkable. XR/XR chest 1V portable [id number] IMPRESSION: Progression of pneumonia in the right lung.
--- NOTE | 2021-08-23 01:49 | PM.HP ---
Providers/Chief Complaint Admitting Physician: Kayla Leon MD Chief Complaint: sob History of Present Illness Zuleyma Bryant is a 31 year old female with significant past medical history of substance abuse, Crohn's disease, bipolar disorder?presents to the emergency room today with chief complains of shortness of breath. Patient states she has been feeling poorly over the last 4 to 5 days and has been experiencing increasing dyspnea. Reports she has a history of asthma, has not increased her inhaler use with onset of symptoms. She additionally has a productive cough, reports that her phlegm is yellow-green in color. He presented to the emergency room yesterday with complains of both abdominal pain and dyspnea, a chest x-ray was suggestive of right lower lobe pneumonia and she was discharged with levofloxacin. States that her symptoms continued to get worse, chiefly with regard to shortness of breath and she presented back into the emergency room. Has a history of methamphetamine abuse, though denies using recently. She has audible wheezing. Denies any chest pain dyspnea palpitations or syncope. Uncertain if she has had a fever. Noted to be tachycardic between 102 110 bpm. States that she has had a poor p.o. intake. Review of Systems General: Reports: 10 or more systems reviewed and unremarkable except in HPI and below Const: Denies: fever(s), chills or body aches Eyes: Denies: change in vision, blurry vision or photophobia ENMT: Reports: hoarseness; Denies: throat pain, enlarged tonsils, odynophagia or nasal congestion Card: Denies: chest pain, palpitations, irregular heart rhythm, edema, swelling of feet/ankles, lightheadedness, pre-syncope, dyspnea on exertion or orthopnea Resp: Reports: dyspnea, productive cough and wheezing; Denies: stridor, pain on inspiration, change in phlegm color, hemoptysis or chest congestion GI: Denies: abdominal pain, nausea, vomiting, hematemesis, coffee ground emesis, dysphagia, heartburn, diarrhea, constipation, GI cramping, change in stool character, hematochezia or melena : Denies: flank pain, difficulty voiding, dysuria, urinary frequency, urinary urgency, urinary hesitancy or hematuria Musc: Denies: neck pain, back pain, extremity pain, joint swelling, joint warmth or deformity Neuro: Denies: headache(s), numbness in extremities, weakness in extremities, sensory changes, difficulty walking, frequent falls, dizziness, vertigo, behavioral changes, Slurred speech present or seizure-like activity Psych: Denies: anxiety, depression, suicidal ideation or homicidal ideation Endo: Denies: polyuria, polydipsia, tired all the time, cold intolerance or hot flashes Nixon/Lymph: Denies: easy bruising or easy bleeding Medications/Allergies Home Medications Medication Instructions Recorded Confirmed Last Taken Type amlodipine 5 mg tablet 5 mg PO DAILY PRN 08/14/19 08/21/21 Unknown History albuterol sulfate 90 mcg/actuation 2 inh INHALATION Q4H PRN #1 each 08/21/21 Unknown Rx breath activated powder inhaler alprazolam 1 mg tablet 1 mg PO . DIRECTED PRN 08/21/21 08/21/21 08/20/21 History aripiprazole 30 mg tablet 30 mg PO DAILY PRN 08/21/21 08/21/21 Unknown History aspirin 325 mg tablet 325 mg PO Q4H PRN 08/21/21 08/21/21 Unknown History dicyclomine 20 mg tablet 20 mg PO QID PRN 08/21/21 08/21/21 Unknown History fluticasone 250 mcg-salmeterol 50 1 ea INHALATION BID PRN 08/21/21 08/21/21 Unknown History mcg/dose blistr powdr for inhalation levofloxacin 500 mg tablet 500 mg PO DAILY 7 Days #7 tab 08/21/21 Unknown Rx Allergies Allergy/AdvReac Type Severity Reaction Status Date / Time clonazepam [From Klonopin] Allergy ADR-Halluci Verified 08/22/21 19:39 nating codeine Allergy ALGY-Anaphy Verified 08/22/21 19:39 laxis promethazine Allergy ALGY-Redness Verified 08/22/21 19:39 of Skin tramadol Allergy ADR-Seizure Verified 08/22/21 19:39 PFSH Acute PFSH: Medical History (Updated 08/23/21 @ 01:58 by Kayla Leon MD) Anxiety and depression Asthma Crohn's disease Irritable bowel syndrome Obesity PTSD (post-traumatic stress disorder) Seizure disorder Substance abuse Surgical History H/O adenoidectomy H/O: hysterectomy History of appendectomy History of tonsillectomy Family History Other Cancer Social History Smoking and tobacco status: current every day smoker Vitals/I&O/Wt Last Vital Signs Temp 98.3 F 08/23/21 00:10 Pulse 100 08/23/21 00:10 Resp 22 H 08/23/21 00:10 BP 113/77 08/23/21 00:10 Pulse Ox 97 08/23/21 00:10 08/22/21 08/22/21 08/23/21 14:59 22:59 06:59 Intake Total 50 / 50 Balance 50 / 50 Weight last 48 hrs Weight 81.647 kg Physical Exam Narrative: General: Alert, awake, lying in bed, audible wheezing, excessively sweating, dehydrated , ill appearing HEENT: PERRLA, pupils bilaterally equal and reactive Chest: B/L rhonchi on auscultation diffusely CVS: S1-S2 regular, no murmurs, no tachycardia, no gallops, no rubs Abdomen: Soft, nontender, no organomegaly, bowel sounds present Neuro: No focal deficits, no facial deformity, AO x3, power 5/5 in all limbs Extremities: no edema, clubbing or cyanosis, few healing scratches and folliclitis over B/L lower extremities. Data : 08/22/21 21:19 08/22/21 21:19 A&P Assessment and plan (1) Sepsis: Related to RLL pneumonia - evidenced by leukocytosis, tachycardia, tachypnea , transminitis IVF NS @ 75 cc/hr Empiric abx coverage with ceftriaxone 1g iv daily, continue atypical coverage with levofloxacin 750mg po daily Blood culture taken priro to abx today Status: Acute (2) Right lower lobe pneumonia: CXR from 08/21 with RLL pneumonia , repeat today Check COVID PCR, MRSA screen, sputum gram stain and cx Status: Acute Qualifiers: Pneumonia type: due to unspecified organism Qualified Code(s): J18.9 - Pneumonia, unspecified organism (3) Asthma exacerbation: Duonebs q4h scheduled and budesonide 0.5mg BID inhalation Currently feels improved after receiving nebulization x 2. Holding off on steroids for now given clinical improvement Status: Acute (4) Polysubstance abuse: Status: Acute (5) Transaminitis: May be related to sepsis Check Hep serology given h/o IVDU Status: Acute Attestations Medical Necessity Statement*: >2midnight admission anticipated for management of CAP with sepsis, asthma exacerbation- need for iv abx, Iv fluids, scheduled nebulization, worsening in spite of outpatient abx treatment Coding Level of Care Code Acute Kraft Digester Operator for [facility] Diagnoses Right lower lobe pneumonia J18.9 Pneumonia type: due to unspecified organism Polysubstance abuse F19.10 Transaminitis R74.01 Sepsis A41.9 Asthma exacerbation J45.901
[2021-08-23] MEDS: sodium chloride 0.9% 1,000 ML 75 ML IV ×2 (02:24→16:27)
[2021-08-23] MEDS: enoxaparin 40 mg/0.4 mL Syringe SUBCUT (02:24)
[2021-08-23 06:48] LABS: Glucose Point of Care 118 mg/dL (70-110)
[2021-08-23] MEDS: ipratropium-albuterol 3 mL Neb INHALATION ×2 (08:43→15:33)
[2021-08-23] MEDS: budesonide 0.5 mg/2 mL Neb INHALATION (08:43)
[2021-08-23] MEDS: predniSONE 20 mg Tablet 40 MG PO (09:54)
[2021-08-23] MEDS: levoFLOXacin 750 mg Tablet PO (09:54)
[2021-08-23] MEDS: pantoprazole DR 40 mg Tablet PO (09:54)
[2021-08-23 12:14] LABS: Basophils % 0.1 %; Hematocrit 36.5 % (37.0-47.0); Hemoglobin 12.3 g/dL (11.5-15.3); Lymphocytes % 10.4 %; Mean Corpuscular HGB Conc 33.7 g/dL (30.0-36.0); Mean Corpuscular Hemoglobin 28.1 pg (28.0-34.0); Mean Corpuscular Volume 83.5 fl (81-99); Mean Platelet Volume 10.2 fL (7.4-10.4); Monocytes # 0.3 10^3/uL (0.2-0.9); Neutrophils # 8.29 10^3/uL (1.8-7.7); Neutrophils % 85.6 %; Nucleated Red Blood Cells % 0 %; Platelet Count 236 10^3/cmm (130-400); Red Blood Count 4.37 10^6/uL (4.1-5.3); Red Cell Distribution Width 12.5 % (12.1-15.1); White Blood Count 9.7 10^3/uL (4.0-10.0)
[2021-08-23 12:33] LABS: Lactic Sepsis W/Reflex 2.8 mmol/L (0.5-2.2)
[2021-08-23 12:44] LABS: Alanine Aminotransferase 68 U/L (0-33); Albumin Level 2.8 g/dL (3.5-5.2); Alkaline Phosphatase 121 IU/L (35-105); Anion Gap 15.5 (5-19); Aspartate Amino Transferase 20 U/L (0-32); Blood Urea Nitrogen 13 mg/dL (6-20); Calcium 8.7 mg/dL (8.5-10.5); Carbon Dioxide 21 mmol/L (22-29); Chloride 102 mmol/L (98-107); Globulin 4.3 g/dL (1.3-4.6); Glomerular Filtration Rate 115.1 mL/min (90-130); Glucose 204 mg/dL (65-115); Osmolality Calculated 286 mOsm/kg (285-295); Potassium 3.5 mmol/L (3.5-5.1); Sodium 135 mmol/L (136-145); Thyroid Stimulating Hormone 0.48 uIU/mL (0.27-4.20); Total Bilirubin 0.2 mg/dL (0.15-1.2); Total Protein 7.1 g/dL (6.6-8.7)
--- NOTE | 2021-08-23 13:07 | P.PN_ITS ---
Subjective Subjective: Patient was seen this morning she is wheezing, but tells me she feels a lot better, getting a breathing treatment, denies any chest tightness Vitals/I&O/Wt Last Vital Signs Temp 97.4 F L 08/23/21 04:00 Pulse 85 08/23/21 08:56 Resp 18 08/23/21 08:43 BP 97/64 08/23/21 07:34 Pulse Ox 98 08/23/21 08:43 08/22/21 08/23/21 08/23/21 22:59 06:59 14:59 Intake Total 1300 / 1300 Balance 1300 / 1300 Weight last 48 hrs Weight 81.647 kg Physical Exam Const: COMMON NORMALS: no acute distress and patient oriented x3 Resp: COMMON NORMALS: normal respiratory effort, No retractions, No use of accessory muscles and clear to auscultation bilaterally AUSCULTATION: clear to auscultation bilaterally Cardio: COMMON NORMALS: regular rate, regular rhythm, S1 normal heart sound present and S2 normal heart sound present RATE: regular rate RHYTHM: regular rhythm HEART SOUNDS: S1 normal heart sound present and S2 normal heart sound present GI: COMMON NORMALS: Normal to inspection, nondistended, normoactive bowel sounds present, Soft to palpation, non-tender and No hepatosplenomegaly present PALPATION: Yes Soft to palpation and Yes No hepatosplenomegaly present Extremity: COMMON NORMALS: no pedal edema Neuro: COMMON NORMALS: patient oriented x3 Psych: COMMON NORMALS: mental status grossly normal Data : 08/23/21 12:03 08/23/21 12:03 Micro: Microbiology 08/23/21 02:00 MRSA Culture - Final Nose 08/23/21 12:03 Blood Culture - Preliminary Blood SPECIMEN COLLECTED 08/23/21 12:03 Blood Culture - Preliminary Blood SPECIMEN COLLECTED A&P Assessment and plan (1) Sepsis: Related to RLL pneumonia - evidenced by leukocytosis, tachycardia, tachypnea , transminitis Positive for mycoplasma pneumonia IVF NS @ 75 cc/hr Empiric abx coverage with ceftriaxone 1g iv daily, continue atypical coverage with levofloxacin 750mg po daily Blood culture taken priro to abx today Status: Acute (2) Right lower lobe pneumonia: CXR from 08/21 with RLL pneumonia , repeat today Check COVID PCR negative MRSA screen, sputum gram stain and cx Status: Acute Qualifiers: Pneumonia type: due to unspecified organism Qualified Code(s): J18.9 - Pneumonia, unspecified organism (3) Asthma exacerbation: Duonebs q4h scheduled and budesonide 0.5mg BID inhalation Currently feels improved after receiving nebulization x 2. Holding off on steroids for now given clinical improvement Status: Acute (4) Polysubstance abuse: Status: Acute (5) Transaminitis: May be related to sepsis Check Hep serology given h/o IVDU Urine hCG pending Status: Acute Attestations Medical Necessity Statement*: Patient requires hospitalization for mycoplasma pneumonia, right lower lobe pneumonia Coding Level of Care Code Acute Account Advisor for [facility] F[facility] Diagnoses Sepsis A41.9 Right lower lobe pneumonia J18.9 Pneumonia type: due to unspecified organism Asthma exacerbation J45.901 Polysubstance abuse F19.10 Transaminitis R74.01
[2021-08-23 13:24] LABS: Hepatitis A Antibody IgM Non-Reactive (Nonreactive); Hepatitis B Core AB, Total Non-Reactive (Nonreactive); Hepatitis B Surface AB 416.8 (11.5-1000); Hepatitis B Surface Antigen Non-Reactive (Nonreactive); Hepatitis C Virus Antibody Non-Reactive (Nonreactive)
[2021-08-23 13:27] LABS: HIV 1 & 2 Antibody Non-Reactive (Non-Reactiv); HIV 1 & 2 Antigen Non-Reactive (Non-Reactiv)
[2021-08-23 13:57] LABS: Reflex Lactate Order REFLEX LACTIC ORDERD
--- NOTE | 2021-08-23 18:44 | PC.NURSE ---
patient bath interrupted by visitors x4. patient requested to postpone bath until visitors have left for the evening.
[2021-08-23] MEDS: acetaminophen 325 mg Tablet 650 MG PO (19:11)
[2021-08-23 19:46] LABS: Lactic Acid level (Lactate) 4.5 mmol/L (0.5-2.2)
[2021-08-23] MEDS: cefTRIAXone 1,000 MG in sodium chloride 0.9% (plus) 50 ML 100 MG IV (22:39)
[2021-08-24] VITALS: BP 107/67; PULSE 85; RESP 18; TEMP 36.5; O2SAT 98
--- NOTE | 2021-08-24 00:34 | PC.NURSE ---
pt mother called requesting info, mother not on list of contact, spoke with pt and patient refused information to be given to her mother, stated she over reacts
[2021-08-24] MEDS: enoxaparin 40 mg/0.4 mL Syringe SUBCUT (01:26)
[2021-08-24 04:00] VITALS: BP 105/67; PULSE 72; RESP 18; TEMP 36.5; O2SAT 99
[2021-08-24 04:08] LABS: Basophils # 0.1 10^3/uL (0.0-0.1); Basophils % 0.3 %; Hemoglobin 11.4 g/dL (11.5-15.3); Mean Corpuscular HGB Conc 33.5 g/dL (30.0-36.0); Mean Corpuscular Hemoglobin 27.9 pg (28.0-34.0); Mean Corpuscular Volume 83.1 fl (81-99); Mean Platelet Volume 10.8 fL (7.4-10.4); Monocytes # 0.9 10^3/uL (0.2-0.9); Monocytes % 4.4 %; Neutrophils # 16.39 10^3/uL (1.8-7.7); Neutrophils % 83.9 %; Nucleated Red Blood Cells % 0 %; Platelet Count 291 10^3/cmm (130-400); Red Blood Count 4.09 10^6/uL (4.1-5.3); Red Cell Distribution Width 12.6 % (12.1-15.1); White Blood Count 19.5 10^3/uL (4.0-10.0)
[2021-08-24 04:35] LABS: Alanine Aminotransferase 55 U/L (0-33); Alkaline Phosphatase 108 IU/L (35-105); Anion Gap 15.2 (5-19); Aspartate Amino Transferase 15 U/L (0-32); Blood Urea Nitrogen 13 mg/dL (6-20); C Reactive Protein 103.4 mg/L (0.0-4.9); Calcium 9.1 mg/dL (8.5-10.5); Carbon Dioxide 22 mmol/L (22-29); Chloride 106 mmol/L (98-107); Globulin 3.5 g/dL (1.3-4.6); Glomerular Filtration Rate 142.1 mL/min (90-130); Glucose 125 mg/dL (65-115); Osmolality Calculated 290 mOsm/kg (285-295); Potassium 4.2 mmol/L (3.5-5.1); Procalcitonin 0.13 ng/mL (0-0.5); Sodium 139 mmol/L (136-145); Total Bilirubin 0.2 mg/dL (0.15-1.2); Total Protein 6.5 g/dL (6.6-8.7)
[2021-08-24 04:36] LABS: Lactic Sepsis W/Reflex 2.3 mmol/L (0.5-2.2)
[2021-08-24] MEDS: sodium chloride 0.9% 1,000 ML 75 ML IV (05:19)
[2021-08-24 05:53] LABS: Reflex Lactate Order REFLEX LACTIC ORDERD
[2021-08-24 06:00] VITALS: PULSE 81
[2021-08-24] MEDS: budesonide 0.5 mg/2 mL Neb INHALATION (08:46)
[2021-08-24] MEDS: ipratropium-albuterol 3 mL Neb INHALATION (08:46)
[2021-08-24 08:47] VITALS: PULSE 81; RESP 18; O2SAT 92
--- NOTE | 2021-08-24 10:58 | PC.NURSE ---
1030 Pt not in room. IV on the floor. last seen at 0820 with me, 0900 with Monique Change nurse for IV retaping and 0953 with FREIGHT CONDUCTOR. Charge nurse notified.
--- NOTE | 2021-08-24 12:10 | PM.DCS ---
Discharge Providers Date of Admission: 08/22/21 22:39 Date of Discharge: August 24, 2021 Attending Provider at Admission: Kayla Leon MD Attending Provider at Discharge: Angel Bo MD Diagnoses at Discharge Discharge Diagnosis (1) Sepsis: Status: Acute (2) Right lower lobe pneumonia: Status: Acute Qualifiers: Pneumonia type: due to unspecified organism Qualified Code(s): J18.9 - Pneumonia, unspecified organism (3) Asthma exacerbation: Status: Acute (4) Polysubstance abuse: Status: Acute (5) Transaminitis: Status: Acute Reason for Visit Reason for Visit: sob Hospital Course Hospital Course Zuleyma Bryant is a 31 year old female with significant past medical history of substance abuse, Crohn's disease, bipolar disorder?presents to the emergency room today with chief complains of shortness of breath.? Patient was admitted to [facility] for right lower lobe pneumonia with evidence of sepsis, and asthma exacerbation. She received broad-spectrum antibiotic therapy, steroid therapy, inhaler therapy, fluid therapy, her respiratory cultures came back positive for mycoplasma pneumonia. Overall she clinically improved, not requiring oxygen, symptomatology improved. The morning of 08/24/2021, patient overall clinically improved, wanted to be discharged home, with plans on being discharged, I orally went over her discharge instructions with her. However patient did not want to wait, patient left AGAINST MEDICAL ADVICE before her discharge to be formally sent through electronically, she did not want to wait, I was told by nursing staff she ripped out her IV, and she left, seen on security camera. Nonetheless, I have discharged her on a prednisone burst, azithromycin, albuterol, Advair with close follow-up with her primary care provider and Dr. Stephen as outpatient Physical Exam Const: COMMON NORMALS: no acute distress and patient oriented x3 Resp: COMMON NORMALS: normal respiratory effort, No retractions, No use of accessory muscles and clear to auscultation bilaterally AUSCULTATION: clear to auscultation bilaterally Cardio: COMMON NORMALS: regular rate, regular rhythm, S1 normal heart sound present and S2 normal heart sound present RATE: regular rate RHYTHM: regular rhythm HEART SOUNDS: S1 normal heart sound present and S2 normal heart sound present GI: COMMON NORMALS: Normal to inspection, nondistended, normoactive bowel sounds present, Soft to palpation and non-tender PALPATION: Yes Soft to palpation Extremity: COMMON NORMALS: no pedal edema Neuro: COMMON NORMALS: patient oriented x3 Psych: COMMON NORMALS: mental status grossly normal Discharge Data Studies Completed and Pending Completed Studies During Hospitalization Category Date Time Status XR chest 1V portable [id number] Routine Exams 08/23/21 01:39 Completed Pending at discharge Category Date Time Status Blood Culture Stat Lab 08/23/21 12:03 Results C Reactive Protein AM LABS Lab 08/25/21 04:00 Ordered C Reactive Protein AM LABS Lab 08/26/21 04:00 Ordered Drug Screen, Urine Routine Lab 08/23/21 01:43 Uncollected Magnesium AM LABS Lab 08/25/21 04:00 Ordered Magnesium AM LABS Lab 08/26/21 04:00 Ordered Procalcitonin AM LABS Lab 08/25/21 04:00 Ordered Procalcitonin AM LABS Lab 08/26/21 04:00 Ordered Sputum Culture Routine Lab 08/23/21 01:43 Uncollected Radiology Impressions Chest X-Ray 08/23/21 01:39 IMPRESSION: Progression of pneumonia in the right lung. Laboratory Results WBC 19.5 10^3/uL (4.0-10.0) H 08/24/21 03:00 RBC 4.09 10^6/uL (4.1-5.3) L 08/24/21 03:00 Hgb 11.4 g/dL (11.5-15.3) L 08/24/21 03:00 Hct 34.0 % (37.0-47.0) L 08/24/21 03:00 MCV 83.1 fl (81-99) 08/24/21 03:00 MCH 27.9 pg (28.0-34.0) L 08/24/21 03:00 MCHC 33.5 g/dL (30.0-36.0) 08/24/21 03:00 RDW 12.6 % (12.1-15.1) 08/24/21 03:00 Plt Count 291 10^3/cmm (130-400) 08/24/21 03:00 MPV 10.8 fL (7.4-10.4) H 08/24/21 03:00 Neut % (Auto) 83.9 % 08/24/21 03:00 Lymph % (Auto) 10.0 % 08/24/21 03:00 [place] % (Auto) 4.4 % 08/24/21 03:00 Eos % (Auto) 0.0 % 08/24/21 03:00 Baso % (Auto) 0.3 % 08/24/21 03:00 Neut # (Auto) 16.39 10^3/uL (1.8-7.7) H 08/24/21 03:00 Lymph # (Auto) 2.0 10^3/uL (0.8-4.8) 08/24/21 03:00 [place] # (Auto) 0.9 10^3/uL (0.2-0.9) 08/24/21 03:00 Eos # (Auto) 0.0 10^3/uL (0.0-0.8) 08/24/21 03:00 Baso # (Auto) 0.1 10^3/uL (0.0-0.1) 08/24/21 03:00 Nucleated RBC % (auto) 0 % 08/24/21 03:00 Nucleated RBCs # 0.0 /100WBC 08/24/21 03:00 Sodium 139 mmol/L (136-145) 08/24/21 03:00 Potassium 4.2 mmol/L (3.5-5.1) 08/24/21 03:00 Chloride 106 mmol/L (98-107) 08/24/21 03:00 Carbon Dioxide 22 mmol/L (22-29) 08/24/21 03:00 Anion Gap 15.2 (5-19) 08/24/21 03:00 BUN 13 mg/dL (6-20) 08/24/21 03:00 Creatinine 0.5 mg/dL (0.5-0.9) 08/24/21 03:00 GFR Calculation 142.1 mL/min (90-130) H 08/24/21 03:00 Glucose 125 mg/dL (65-115) H 08/24/21 03:00 POC Glucose 118 mg/dL (70-110) H 08/23/21 04:21 Calculated Osmolality 290 mOsm/kg (285-295) 08/24/21 03:00 Lactic Acid 2.3 mmol/L (0.5-2.2) H 08/24/21 03:00 Lactic Acid (Sepsis) 4.5 mmol/L (0.5-2.2) H* 08/23/21 18:40 Calcium 9.1 mg/dL (8.5-10.5) 08/24/21 03:00 Magnesium 2.0 mg/dL (1.7-2.3) 08/24/21 03:00 Total Bilirubin 0.2 mg/dL (0.15-1.2) 08/24/21 03:00 AST 15 U/L (0-32) 08/24/21 03:00 ALT 55 U/L (0-33) H 08/24/21 03:00 Alkaline Phosphatase 108 IU/L (35-105) H 08/24/21 03:00 C-Reactive Protein 103.4 mg/L (0.0-4.9) H 08/24/21 03:00 Total Protein 6.5 g/dL (6.6-8.7) L 08/24/21 03:00 Albumin 3.0 g/dL (3.5-5.2) L 08/24/21 03:00 Globulin 3.5 g/dL (1.3-4.6) 08/24/21 03:00 Procalcitonin 0.13 ng/mL (0-0.5) 08/24/21 03:00 TSH 0.48 uIU/mL (0.27-4.20) 08/23/21 12:03 Urine HCG, Qual Negative (Negative) 08/23/21 12:03 C. pneumoniae DNA (PCR) Not detected (NOT DETECT) 08/23/21 00:57 Coronavirus 229E (PCR) Not detected (NOT DETECT) 08/22/21 23:10 Hepatitis A IgM Ab Non-reactive (Nonreactive) 08/23/21 12:03 Hep Bs Antigen Non-reactive (Nonreactive) 08/23/21 12:03 Hep Bs Antibody 416.8 (11.5-1000) 08/23/21 12:03 Hep B Core Total Ab Non-reactive (Nonreactive) 08/23/21 12:03 Hepatitis C Antibody Non-reactive (Nonreactive) 08/23/21 12:03 HIV 1&2 Ab & HIV 1 Ag Non-reactive (Non-Reactiv) 08/23/21 12:03 HIV 1&2 Antibody Non-reactive (Non-Reactiv) 08/23/21 12:03 M. pneumoniae (PCR) Detected (NOT DETECT) A 08/23/21 00:57 SARS-CoV-2 (PCR) Not detected (NOT DETECT) 08/22/21 23:10 Vitals Last Vital Signs Temp 97.7 F 08/24/21 04:00 Pulse 81 08/24/21 08:47 Resp 18 08/24/21 08:47 BP 105/67 08/24/21 04:00 Pulse Ox 92 08/24/21 08:47 Discharge Plan Discharge Patient Disposition: Left Against Medical Advice Condition: Stable Prescriptions: New prednisone 20 mg Tablet 40 mg PO DAILY 5 Days Qty: 10 0RF azithromycin 250 mg tablet See Rx Instructions .ROUTE .COMPLEX Qty: 6 0RF Rx Instructions: For 250 mg dose pack: take 500 mg today (day 1), then 250 mg for 4 days (days 2-5) albuterol sulfate 90 mcg/actuation HFA aerosol inhaler 1 inh inhalation Q6H PRN (Reason: shortness of breath or wheezing) Qty: 8.5 0RF Continued amlodipine 5 mg tablet 5 mg PO DAILY PRN (Reason: Blood Pressure) 0RF alprazolam 1 mg tablet 1 mg PO . DIRECTED PRN (Reason: Anxiety) 0RF dicyclomine 20 mg tablet 20 mg PO QID PRN (Reason: colitis) 0RF aripiprazole 30 mg tablet 30 mg PO DAILY PRN (Reason: unknown) 0RF Adderall XR 5 mg Capsule,Extended Release 24hr 5 mg PO DAILY 0RF Changed fluticasone propion-salmeterol 250-50 mcg/dose blister with device 1 ea INHALATION BID Qty: 60 0RF Discontinued levofloxacin 500 mg tablet 500 mg PO DAILY 7 Days Qty: 7 0RF albuterol sulfate 90 mcg/actuation aerosol powdr breath activated 2 inh INHALATION Q4H PRN (Reason: shortness of breath or wheezing) Qty: 1 0RF Discharge Orders: Discharge Order (Routine); Ordered 08/24/21 Ordered By: Angel Bo Referrals: Stacy Stephen MD [Physician] - 7-10 days Discharge Diet: Cardiac Discharge Activity: Resume usual activity Discharge Attestations Time Spent in Discharge Care*: less than 30 min Quality Metrics Clinical Quality Measures [ No reported AMI, CVA or VTE this stay] Coding Level of Care Code Acute Chg FW DC note Diagnoses Sepsis A41.9 Right lower lobe pneumonia J18.9 Pneumonia type: due to unspecified organism Asthma exacerbation J45.901 Polysubstance abuse F19.10 Transaminitis R74.01
[2021-08-24 13:56] VITALS: PULSE 81; RESP 18; O2SAT 92
--- NOTE | 2021-08-24 13:57 | PC.NURSE ---
pt was spotted by main entrance screener SYNDEE Cardenas and noted on security footage by Bairon Lucero at approximately 1030 leaving the facility. Nurse Tisha had went to check on patient and found her belongings gone, iv catheter intact, still attached to tubing, and no patient in the room.
== END 2021-08-24 11:00 | disposition left against medical advice (07) ==
LOC: ER 22:38 → MEDSURG 08-23 01:04
PROVIDERS: Admitting Provider Student in an Organized Health Care Education/Training Program; Emergency Provider Emergency Medicine; Visit Provider Family Medicine
DX: A41.9 Sepsis, unspecified organism (principal); J18.9 Pneumonia, unspecified organism; J45.901 Unspecified asthma with (acute) exacerbation; F19.10 Other psychoactive substance abuse, uncomplicated; R74.01 Elevation of levels of liver transaminase levels; Z53.29 Procedure and treatment not carried out because of patient's decision for other reasons; E66.9 Obesity, unspecified; Z68.32 Body mass index [BMI] 32.0-32.9, adult; F17.210 Nicotine dependence, cigarettes, uncomplicated
CPT/HCPCS: 36415; 36416; 71045; 74176; 80053; 80306; 81003; 81025; 82962; 83605; 83735; 84145; 84443; 84484; 85025; 86140; 86705; 86706; 86709; 86803; 87040; 87340; 87486; 87502; 87581; 87633; 87635; 87641; 87806; 93005; 94640; 96365; 96367; 96372; 96375; 99284; 99285; G0378; J0456; J0696; J1650; J2930; J7030; J7050; J7512; J7626; Q0144

== ENCOUNTER → 2022-04-30 13:38 | Outpatient (BNVA) | payer MEDICARE, MEDICAID, SELFPAY | PROVIDERS: PCP Family Medicine; Visit Provider Otolaryngology | DX: H69.83 Other specified disorders of Eustachian tube, bilateral (principal); H73.893 Other specified disorders of tympanic membrane, bilateral; H90.0 Conductive hearing loss, bilateral; H61.23 Impacted cerumen, bilateral; J34.2 Deviated nasal septum; M26.623 Arthralgia of bilateral temporomandibular joint | CPT/HCPCS: 69210; 99204 ==

== ENCOUNTER 2022-05-09 13:58 | Emergency (ER) | payer MEDICARE, MEDICAID, SELFPAY ==
[2022-05-09 13:59] VITALS: BMI 30.7
[2022-05-09 14:05] VITALS: BP 127/82; PULSE 106; RESP 16; O2SAT 99
--- NOTE | 2022-05-09 14:51 | W.ED.ABDPA2 ---
HPI - Abdominal Pain General: Chief Complaint: Abdominal Pain Stated Complaint: abd pain Time Seen by Provider: 05/09/22 14:49 Source: patient Mode of arrival: ambulatory History of Present Illness: 32-year-old female presents emergency room complaining of bloating and discomfort abdominal pain that is began over the last week. It is progressively worsened this morning she had a bowel movement that was claylike she denies any hematochezia melena hematemesis or coffee-ground emesis. She has a history of Crohn's disease she has had bowel obstructions in the past. She has not had any resections previously. She has been very nauseous no vomiting no hematochezia. Patient admits to methamphetamine and marijuana use within the last 2 days. MD elicited complaint: abdominal pain Pertinent past history: none Onset (ago): minute(s) Pain Consistency: constant Location: Diffuse Severity: mild Quality: cramping Radiation: none Migration to: no migration Exacerbating factors: nothing Relieving factors: nothing Associated Symptoms: Reports bloating, GI cramping and nausea; Denies anorexia, belching, change in bowel habits, change in stool character, chills, coffee ground emesis, constipation, diarrhea, dyspepsia, dysuria, excessive flatus, fever(s), heartburn, hematochezia, hematuria, hematemesis, fecal incontinence, loose stools, melena, poor appetite, syncope and vomiting Review of Systems Const: Denies: fever(s), chills, fatigue or malaise ENMT: Denies: throat pain, ear or mastoid pain, nasal discharge or nasal congestion Card: Denies: chest pain, palpitations, irregular heart rhythm, edema or syncope Resp: Denies: dyspnea, productive cough or non-productive cough GI: Reports: abdominal pain, nausea, bloating and GI cramping; Denies: vomiting, hematemesis, coffee ground emesis, heartburn, diarrhea, constipation, belching, excessive flatus, fecal incontinence, change in bowel habits, change in stool character, hematochezia or melena : Denies: dysuria or hematuria Skin/Breast: Denies: rash or pruritus PFSH ED PFSH: Medical History Anxiety and depression Asthma Crohn's disease Irritable bowel syndrome Obesity PTSD (post-traumatic stress disorder) Seizure disorder Substance abuse Surgical History H/O adenoidectomy H/O: hysterectomy History of appendectomy History of myringotomy History of tonsillectomy Family History Other Cancer Social History Smoking and tobacco status: current every day smoker Physical Exam Const: GENERAL APPEARANCE: cooperative and comfortable ORIENTATION/CONSCIOUSNESS: Yes awake, Yes oriented to person, Yes oriented to place and Yes oriented to time HENMT: COMMON NORMALS: normocephalic, atraumatic and hearing grossly normal bilaterally HEAD & SCALP: normocephalic and atraumatic Resp: COMMON NORMALS: normal respiratory effort, No retractions, No use of accessory muscles and clear to auscultation bilaterally AUSCULTATION: clear to auscultation bilaterally Cardio: COMMON NORMALS: regular rate, regular rhythm and No murmurs present (Cardio) RATE: regular rate RHYTHM: regular rhythm GI: COMMON NORMALS: No hepatosplenomegaly present AUSCULTATION: Yes Hypoactive bowel sounds present PALPATION: Yes Tenderness to palpation present (GI), No Guarding due to palpation present (GI) and Yes No hepatosplenomegaly present PERCUSSION: tympanic to percussion : COMMON NORMALS: Yes no CVA tenderness BLADDER/KIDNEY EXAM: Yes no CVA tenderness Back/Pelvis: COMMON NORMALS: no CVA tenderness Extremity: COMMON NORMALS: normal to inspection, capillary refill normal, no clubbing, cyanosis or edema, no calf tenderness and no pedal edema Neuro: SENSORIUM/ORIENTATION: Yes oriented to person, Yes oriented to place and Yes oriented to time Skin: COMMON NORMALS: no rashes or lesions noted GENERAL SKIN EXAM: no rashes or lesions noted Course Vital Signs: Vital signs: Vital Signs Pulse Rate 101 H 05/09/22 17:00 Respiratory Rate 19 H 05/09/22 17:00 Blood Pressure 121/86 05/09/22 17:00 Pulse Oximetry 96 05/09/22 17:00 Oxygen Delivery Me thod 05/09/22 17:00 MDM - Abdominal Pain Medical Decision Making Labs and imaging reviewed. Pt had mild gastroentritis. Clear liquid diet for 3-4 days then advance as able, can use ondensatron prn. Medical Records I reviewed the patient's medical records. Lab Data I reviewed the patient's lab results. 05/09/22 15:25 05/09/22 15:25 Labs/Radiology: Radiology Impressions Abdomen/Pelvis CT 05/09/22 14:59 IMPRESSION: 1. Nondilated, fluid-filled loops of small bowel in the left upper quadrant, some of which appear mildly thickened. Mild nonspecific enteritis could produce this appearance. 2. Additional findings, as above. Laboratory Results WBC 9.2 10^3/uL (4.0-10.0) 05/09/22 15:25 RBC 5.31 10^6/uL (4.1-5.3) H 05/09/22 15:25 Hgb 14.5 g/dL (11.5-15.3) 05/09/22 15:25 Hct 46.6 % (37.0-47.0) 05/09/22 15:25 MCV 87.8 fl (81-99) 05/09/22 15:25 MCH 27.3 pg (28.0-34.0) L 05/09/22 15:25 MCHC 31.1 g/dL (30.0-36.0) 05/09/22 15:25 RDW 12.7 % (12.1-15.1) 05/09/22 15:25 Plt Count 204 10^3/cmm (130-400) 05/09/22 15:25 MPV 11.5 fL (7.4-10.4) H 05/09/22 15:25 Neut % (Auto) 80.5 % 05/09/22 15:25 Lymph % (Auto) 11.8 % 05/09/22 15:25 [place] % (Auto) 3.7 % 05/09/22 15:25 Eos % (Auto) 3.5 % 05/09/22 15:25 Baso % (Auto) 0.2 % 05/09/22 15:25 Neut # (Auto) 7.40 10^3/uL (1.8-7.7) 05/09/22 15:25 Lymph # (Auto) 1.1 10^3/uL (0.8-4.8) 05/09/22 15:25 [place] # (Auto) 0.3 10^3/uL (0.2-0.9) 05/09/22 15:25 Eos # (Auto) 0.3 10^3/uL (0.0-0.8) 05/09/22 15:25 Baso # (Auto) 0.0 10^3/uL (0.0-0.1) 05/09/22 15:25 Nucleated RBC % (auto) 0 % 05/09/22 15:25 Nucleated RBCs # 0.0 /100WBC 05/09/22 15:25 Sodium 136 mmol/L (136-145) 05/09/22 15:25 Potassium 4.2 mmol/L (3.5-5.1) 05/09/22 15:25 Chloride 101 mmol/L (98-107) 05/09/22 15:25 Carbon Dioxide 24 mmol/L (22-29) 05/09/22 15:25 Anion Gap 15.2 (5-19) 05/09/22 15:25 BUN 11 mg/dL (6-20) 05/09/22 15:25 Creatinine 0.7 mg/dL (0.5-0.9) 05/09/22 15:25 GFR Calculation 95.8 mL/min (90-130) 05/09/22 15:25 Glucose 95 mg/dL (65-115) 05/09/22 15:25 Calculated Osmolality 281 mOsm/kg (285-295) L 05/09/22 15:25 Calcium 8.8 mg/dL (8.5-10.5) 05/09/22 15:25 Total Bilirubin 0.5 mg/dL (0.15-1.2) 05/09/22 15:25 AST 25 U/L (0-32) 05/09/22 15:25 ALT 52 U/L (0-33) H 05/09/22 15:25 Alkaline Phosphatase 90 U/L (35-105) 05/09/22 15:25 Total Protein 6.7 g/dL (6.6-8.7) 05/09/22 15:25 Albumin 3.7 g/dL (3.5-5.2) 05/09/22 15:25 Globulin 3.0 g/dL (1.3-4.6) 05/09/22 15:25 Lipase 20 U/L (13-60) 05/09/22 15:25 Urine Color Dark yellow (Yellow) 05/09/22 16:10 Urine Appearance Hazy (CLEAR) A 05/09/22 16:10 Urine pH 5 (5-7) 05/09/22 16:10 Ur Specific [place] 1.020 (1.005-1.030) 05/09/22 16:10 Urine Protein Neg (Negative) 05/09/22 16:10 Urine Glucose (UA) Norm (Normal) 05/09/22 16:10 Urine Ketones Negative (Negative) 05/09/22 16:10 Urine Blood Neg (Negative) 05/09/22 16:10 Urine Nitrate Negative (Negative) 05/09/22 16:10 Urine Bilirubin Neg (Negative) 05/09/22 16:10 Urine Urobilinogen Neg mg/dL (Negative) 05/09/22 16:10 Ur Leukocyte Esterase Negative (Negative) 05/09/22 16:10 Urine RBC None /hpf (0-2) 05/09/22 16:10 Urine WBC 5-10 /hpf (0-5) H 05/09/22 16:10 Ur Squamous Epith Cells 0-4 /hpf (0-5) H 05/09/22 16:10 Amorphous Sediment Not Reportable 05/09/22 16:10 Urine Bacteria None /hpf (NONE) 05/09/22 16:10 Discharge Plan Discharge Patient Disposition: Home Clinical Impression: Gastroenteritis, Crohn's disease Condition: Stable Prescriptions: New ondansetron HCl 4 mg tablet 4 mg PO Q6H PRN (Reason: nausea and vomiting) Qty: 20 0RF Macrobid 100 mg capsule 100 mg PO BID 7 Days Qty: 14 0RF Rx Instructions: must administer with a meal/food Discharge Orders: Discharge ED (Routine); Ordered 05/09/22 Ordered By: Jersey Johnson Referrals: Ilda Shirley MD [Primary Care Provider] - Discharge Diet: Clear Liquid Discharge Activity: Resume usual activity Patient Instructions: Opioid Safety, Pain Management Activity Restrictions/Additional Instructions: You were seen today for nausea and vomiting. Your CT was negative. You did have a mild bladder infection the rest of your laboratory studies were unremarkable. Recommend oral antibiotics for the bladder infection and you can use ondansetron for nausea and vomiting clear liquid diet for 1 to 2 days and advance as tolerated. Coding Level of Care Code ED [employer] for Tulio Quevedo
--- NOTE | 2022-05-09 14:59 | CTR_ITS ---
PROCEDURE INFORMATION: Exam: CT Abdomen And Pelvis Without Contrast Exam date and time: 05/09/2022 3:12 PM Age: 32 years old Clinical indication: Bloating and nausea and vomiting; Prior surgery; Surgery type: Hyst; Appy; Additional info: Abdominal pain TECHNIQUE: Imaging protocol: Computed tomography of the abdomen and pelvis without contrast. Axial, coronal and sagittal reformatted images were created and reviewed. Radiation optimization: All CT scans at this facility use at least one of these dose optimization techniques: automated exposure control; mA and/or kV adjustment per patient size (includes targeted exams where dose is matched to clinical indication); or iterative reconstruction. REPORTING DATA: Count of CT and Cardiac NM exams in prior 12 months: This patient has received [address] and 0 known cardiac nuclear medicine studies in the 12 months prior to the current study. COMPARISON: CT abdomen pelvis wo con [id number] 08/21/2021 12:11 PM RADIATION DOSE METRICS: Total DLP (mGy-cm): 731.23 FINDINGS: Liver: Mild hepatomegaly. 6 mm low-density lesion in the right hepatic lobe, too small to characterize. Gallbladder and bile ducts: No radiodense gallstones. No biliary ductal dilatation. Pancreas: Unremarkable. Spleen: Unremarkable. Adrenal glands: Normal. No mass. Kidneys and ureters: No mass. No radiodense calculi. No hydronephrosis. Stomach and bowel: Nondilated, fluid-filled loops of small bowel in the left upper quadrant, some of which appear mildly thickened. No obstruction. No pneumatosis. Appendix: Status post appendectomy by history. Intraperitoneal space: No free fluid. No organized fluid collection. No free air. Vasculature: Unremarkable. No aneurysm. Lymph nodes: Small mesenteric lymph nodes, nonspecific in appearance. No pathologically enlarged lymph nodes. Urinary bladder: Unremarkable as visualized. Reproductive: Status post hysterectomy. Bones/joints: No acute osseous abnormality. Soft tissues: Unremarkable. CT/CT abdomen pelvis wo con [id number] IMPRESSION: 1. Nondilated, fluid-filled loops of small bowel in the left upper quadrant, some of which appear mildly thickened. Mild nonspecific enteritis could produce this appearance. 2. Additional findings, as above.
[2022-05-09 15:57] LABS: Basophils % 0.2 %; Eosinophils # 0.3 10^3/uL (0.0-0.8); Eosinophils % 3.5 %; Hematocrit 46.6 % (37.0-47.0); Hemoglobin 14.5 g/dL (11.5-15.3); Lymphocytes # 1.1 10^3/uL (0.8-4.8); Lymphocytes % 11.8 %; Mean Corpuscular HGB Conc 31.1 g/dL (30.0-36.0); Mean Corpuscular Hemoglobin 27.3 pg (28.0-34.0); Mean Corpuscular Volume 87.8 fl (81-99); Mean Platelet Volume 11.5 fL (7.4-10.4); Monocytes # 0.3 10^3/uL (0.2-0.9); Monocytes % 3.7 %; Neutrophils % 80.5 %; Nucleated Red Blood Cells % 0 %; Platelet Count 204 10^3/cmm (130-400); Red Blood Count 5.31 10^6/uL (4.1-5.3); Red Cell Distribution Width 12.7 % (12.1-15.1); White Blood Count 9.2 10^3/uL (4.0-10.0)
[2022-05-09 16:03] VITALS: RESP 16
[2022-05-09] MEDS: morphine 4 mg/mL SDV 1 mL IVP (16:03)
[2022-05-09] MEDS: ondansetron 2 mg/ML SDV 2 mL 4 MG IVP (16:04)
[2022-05-09 16:10] LABS: Alanine Aminotransferase 52 U/L (0-33); Albumin Level 3.7 g/dL (3.5-5.2); Alkaline Phosphatase 90 U/L (35-105); Anion Gap 15.2 (5-19); Aspartate Amino Transferase 25 U/L (0-32); Blood Urea Nitrogen 11 mg/dL (6-20); Calcium 8.8 mg/dL (8.5-10.5); Carbon Dioxide 24 mmol/L (22-29); Chloride 101 mmol/L (98-107); Glomerular Filtration Rate 95.8 mL/min (90-130); Glucose 95 mg/dL (65-115); Lipase 20 U/L (13-60); Osmolality Calculated 281 mOsm/kg (285-295); Potassium 4.2 mmol/L (3.5-5.1); Sodium 136 mmol/L (136-145); Total Bilirubin 0.5 mg/dL (0.15-1.2); Total Protein 6.7 g/dL (6.6-8.7)
[2022-05-09 16:26] LABS: Slide Review Slide Review Perform
[2022-05-09 16:46] VITALS: BP 114/81; PULSE 91; RESP 18; O2SAT 100
[2022-05-09 16:54] LABS: Add Urine Microscopic? YES; Bilirubin Urine Neg (Negative); Blood Urine Neg (Negative); Glucose Urine UA Norm (Normal); Ketones Urine Negative (Negative); Leukocyte Esterase Urine Negative (Negative); Nitrate Urine Negative (Negative); Protein Urine Neg (Negative); Urine Appearance Hazy (CLEAR); Urine Color Dark Yellow (Yellow); Urobilinogen Urine Neg (Negative); pH Urine 5 (5-7)
[2022-05-09 16:58] LABS: Squamous Epithelial Cell Urine 0-4 /hpf (0-5)
[2022-05-09 16:59] LABS: Add Urine Culture? No
[2022-05-09 17:00] VITALS: BP 121/86; PULSE 101; RESP 19; O2SAT 96
[2022-05-09] MEDS: sodium chloride 0.9% 1,000 ML 999 ML IV (17:12)
[2022-05-09 17:52] VITALS: BP 131/84; PULSE 73; RESP 19; O2SAT 97
== END 2022-05-09 17:56 | disposition home or self-care (01) ==
PROVIDERS: Emergency Provider Family Medicine; PCP Family Medicine
DX: K52.9 Noninfective gastroenteritis and colitis, unspecified (principal); F17.210 Nicotine dependence, cigarettes, uncomplicated
CPT/HCPCS: 74176; 80053; 81001; 83690; 85025; 96374; 96375; 99285; J2270; J2405; J7030

== ENCOUNTER → 2022-08-06 14:58 | Outpatient (BNVA) | payer MEDICARE, MEDICAID, SELFPAY | PROVIDERS: PCP Family Medicine; Visit Provider Otolaryngology | DX: H61.23 Impacted cerumen, bilateral (principal); H69.83 Other specified disorders of Eustachian tube, bilateral; H73.899 Other specified disorders of tympanic membrane, unspecified ear; H90.0 Conductive hearing loss, bilateral; J34.2 Deviated nasal septum; M26.623 Arthralgia of bilateral temporomandibular joint | CPT/HCPCS: 69210; 99214 ==

== ENCOUNTER 2022-08-14 09:04 | Day surgery (SDC) | payer MEDICARE, MEDICAID, SELFPAY ==
[2022-08-13 13:19] VITALS: BMI 31.8
[2022-08-14] VITALS (8 sets, daily range): BP systolic 95–169; BP diastolic 54–110; PULSE 72–92; RESP 16; TEMP 36.1–36.2; O2SAT 93–100
[2022-08-14] MEDS: sodium chloride 0.9% 1,000 ML 30 ML IV (09:27)
--- NOTE | 2022-08-14 10:02 | W.PM.OPSUD ---
Surgery/Procedure H&P Update DATE OF PROCEDURE: August 14, 2022 DATE H&P PERFORMED: 08/06/22 H&P UPDATE INFORMATION: I have reviewed H&P completed within last 30 days, I have examined patient prior to procedure and No changes to prior documentation CHANGES TO PREVIOUS DOCUMENTATION: No changes PREOP DIAGNOSIS: Chronic otitis media with chronic eustachian tube dysfunction PRIMARY INDICATION FOR PROCEDURE: Chronic otitis media and chronic eustachian tube dysfunction bilateral PLANNED PROCEDURE: Operation Date: 08/14/22 10:40 Proposed Procedures p [id number] - myringotomy with bilateral tube insertion H90.0, H69.83,H73.899(Bilateral) - Justino Dougherty MD
[2022-08-14] MEDS: ofloxacin 0.3% otic 5 mL Btl 3 DROP EAR-BOTH (11:56)
--- NOTE | 2022-08-14 12:02 | PM.OP ---
Operative Report Date of procedure: August 14, 2022 Pre-op diagnosis: Preop Diagnosis Chronic otitis media with chronic eustachian tube dysfunction Post-op diagnosis: Same Post-op findings: Both tympanic membranes with scarring thinning retraction and serous fluid in middle ears. Procedure done: Bilateral myringotomy with Dura-Vent tube insertion Implants: Dura-Vent tubes x2 Specimens removed/disposition: No specimens removed Pathology: Nothing for pathology Surgeon: Justino Dougherty MD Anesthesia: General Estimated blood loss: 5 mL Complications: No complications encountered Findings: Both tympanic membranes show significant scarring as well as monomeric areas retraction and serous fluid in the middle ear spaces. Brief History: 32-year-old female patient has had chronic and recurrent otitis media in the past. This has been refractory to time and medical therapy. Significant retraction along with serous fluid persists. As result she is being brought to the operating room at this time to undergo bilateral myringotomy with tube insertion. The patient procedure was explained in detail along with risks and potential complications. These include bleeding and infection and numbness and scarring and swelling and hearing loss and balance system disturbance and facial nerve weakness and change in taste sensation and foreign body reaction and cholesteatoma formation and need for additional tubes in the future as well as need for repair perforations in the future and more serious risks associated with anesthesia. With these things understood informed consent was granted and witnessed. Procedure: Description of procedure: The patient was placed on the operating table in the supine position. Adequate general LMA anesthesia was obtained. A timeout was accomplished identifying the patient date of plan procedure allergies fire risk and medications given. With all in agreement the procedure continued. A microscope was used to view through an ear speculum in the right external canal. Debris was cleaned with suction. The tympanic membrane was found to have scarring thickening monomeric areas as well as retraction. A myringotomy knife was used to create a radial incision in the anterior-inferior quadrant. The middle ear was suctioned clean of serous fluid. This was aided with hydrogen peroxide. Then a Dura-Vent tube was selected inserted and positioned. Hydrogen peroxide was instilled to ensure patency and control ooze. Then ofloxacin drops were applied to the canal with piece of cotton placed at the meatus. A similar procedure was performed on the left side with identical findings. After completion of both tube insertions the patient was returned to anesthesia for wake-up and removal of LMA and transport to recovery. Patient tolerated the procedure well had an estimated blood loss of 5 mL or less and arrived in recovery in stable condition.
--- NOTE | 2022-08-14 16:38 | ANE.PACU2 ---
Inpatient post-anesthesia follow up: Airway intact: Yes Vital signs: Temperature 97.2 F Pulse Rate 81 Respiratory Rate 16 Blood Pressure 137/92 Pulse Oximetry 100 Oxygen Delivery Me thod Room Air Oxygen Flow Rate Fraction of Inspir ed Oxygen Hydration adequate: Yes Nausea and vomiting: No Pain level: 2 Mental status: Baseline
== END 2022-08-14 13:13 | disposition home or self-care (01) ==
PROVIDERS: PCP Family Medicine; Visit Provider Otolaryngology
PROC: (CPT 69420; principal; 2022-08-14 10:35)
DX: H65.23 Chronic serous otitis media, bilateral (principal); H69.83 Other specified disorders of Eustachian tube, bilateral
CPT/HCPCS: 69436; J1100; J2405; J2704; J3010; J7030

== ENCOUNTER 2022-08-20 23:29 | Emergency (ER) | payer MEDICARE, MEDICAID, SELFPAY ==
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
[2022-08-20 23:44] VITALS: BP 134/101; PULSE 95; RESP 17; O2SAT 95
[2022-08-20 23:49] VITALS: BP 117/86; PULSE 85; RESP 16; O2SAT 100
[2022-08-21 00:01] VITALS: TEMP 37
[2022-08-21] MEDS: ketorolac 30 mg/mL INJ IM (00:20)
[2022-08-21] MEDS: acetaminophen 500 mg Tablet 1000 MG PO (00:20)
[2022-08-21 01:09] VITALS: BP 117/82; PULSE 66; RESP 16; O2SAT 99
--- NOTE | 2022-08-21 08:26 | PC.SOCIAL ---
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 Clinic will contact patient with appt date/time.
== END 2022-08-21 01:14 | disposition home or self-care (01) ==
PROVIDERS: Emergency Provider Emergency Medicine; PCP Family Medicine
DX: M25.521 Pain in right elbow (principal); W22.8XXA Striking against or struck by other objects, initial encounter; Y93.9 Activity, unspecified; Y92.9 Unspecified place or not applicable
CPT/HCPCS: 73080; 96372; 99284; J1885

== ENCOUNTER → 2022-08-22 11:04 | Outpatient (BNVA) | payer MEDICARE, MEDICAID, SELFPAY | PROVIDERS: PCP Family Medicine; Visit Provider Otolaryngology | DX: Z48.89 Encounter for other specified surgical aftercare (principal); H90.0 Conductive hearing loss, bilateral; H69.93 Unspecified Eustachian tube disorder, bilateral | CPT/HCPCS: 99024 ==

== ENCOUNTER → 2022-09-01 11:30 | Outpatient (BNVA) | payer MEDICARE, MEDICAID, SELFPAY | PROVIDERS: PCP Family Medicine; Visit Provider Otolaryngology | DX: R13.10 Dysphagia, unspecified (principal); K21.9 Gastro-esophageal reflux disease without esophagitis; R49.0 Dysphonia; F17.200 Nicotine dependence, unspecified, uncomplicated | CPT/HCPCS: 31575; 99213 ==

== ENCOUNTER 2022-10-05 22:43 | Emergency (ER) | payer MEDICARE, MEDICAID, SELFPAY ==
[2022-10-05 22:58] VITALS: BP 96/63; PULSE 105; RESP 14; TEMP 36.8; O2SAT 100; BMI 32.9
[2022-10-05 23:23] LABS: Add Urine Microscopic? YES; Bilirubin Urine Neg (Negative); Blood Urine 3+ (Negative); Glucose Urine UA Norm (Normal); Ketones Urine Negative (Negative); Leukocyte Esterase Urine 2+ (Negative); Nitrate Urine Negative (Negative); Protein Urine 1+ (Negative); Urine Appearance Cloudy (CLEAR); Urine Color Yellow (Yellow); Urobilinogen Urine Norm (Negative); pH Urine 5 (5-7)
[2022-10-05 23:23] LABS: HCG Qualitative Urine. Negative (Negative)
[2022-10-05 23:24] LABS: RBC Urine TOO NUMEROUS TO CNT /hpf (0-2); WBC Urine TOO NUMEROUS TO CNT /hpf (0-5)
[2022-10-05 23:27] LABS: Add Urine Culture? Yes; Bacteria Urine 1+ /hpf; Squamous Epithelial Cell Urine 0-4 /hpf (0-5); Transitional Epi Cells Urine 0-4 /hpf
[2022-10-05 23:29] LABS: Basophils % 0.3 %; Hematocrit 40.3 % (37.0-47.0); Hemoglobin 13.1 g/dL (11.5-15.3); Lymphocytes # 3.1 10^3/uL (0.8-4.8); Lymphocytes % 21.3 %; Mean Corpuscular HGB Conc 32.5 g/dL (30.0-36.0); Mean Corpuscular Hemoglobin 27.2 pg (28.0-34.0); Mean Corpuscular Volume 83.6 fl (81-99); Mean Platelet Volume 9.9 fL (7.4-10.4); Monocytes # 0.7 10^3/uL (0.2-0.9); Neutrophils # 10.77 10^3/uL (1.8-7.7); Neutrophils % 73.1 %; Nucleated Red Blood Cells % 0 %; Platelet Count 262 10^3/cmm (130-400); Red Blood Count 4.82 10^6/uL (4.1-5.3); White Blood Count 14.7 10^3/uL (4.0-10.0)
--- NOTE | 2022-10-05 23:30 | CTR_ITS ---
PROCEDURE INFORMATION: Exam: CT Abdomen And Pelvis Without Contrast Exam date and time: 10/05/2022 11:37 PM Age: 32 years old Clinical indication: Abdominal pain; Prior surgery; Surgery date: 6+ months; Surgery type: Bilat flank pain with dysuria; Additional info: Abd pain TECHNIQUE: Imaging protocol: Computed tomography of the abdomen and pelvis without contrast. Radiation optimization: All CT scans at this facility use at least one of these dose optimization techniques: automated exposure control; mA and/or kV adjustment per patient size (includes targeted exams where dose is matched to clinical indication); or iterative reconstruction. REPORTING DATA: Count of CT and Cardiac NM exams in prior 12 months: This patient has received [address] and 0 known cardiac nuclear medicine studies in the 12 months prior to the current study. COMPARISON: CT abdomen pelvis wo con [id number] 05/09/2022 3:12 PM RADIATION DOSE METRICS: Total DLP (mGy-cm): 695.68 FINDINGS: Lungs: The visualized lung bases are unremarkable. Liver: Normal. No mass. Gallbladder and bile ducts: Normal. No calcified stones. No ductal dilation. Pancreas: Normal. No ductal dilation. Spleen: Normal. No splenomegaly. Adrenal glands: The left adrenal nodule is again noted and measures 11.4 mm. This is unchanged when compared to the previous study. Kidneys and ureters: There is no perirenal fat stranding. The kidneys do not contain renal stones. There are inflammatory changes noted within the ureters bilaterally, this may be secondary to recently passed stones. Pyelonephritis can not be excluded. Stomach and bowel: Unremarkable. No obstruction. No mucosal thickening. Appendix: No evidence of appendicitis. Intraperitoneal space: Unremarkable. No free air. No significant fluid collection. Vasculature: Unremarkable. No abdominal aortic aneurysm. Lymph nodes: Unremarkable. No enlarged lymph nodes. Urinary bladder: The urinary bladder is not well distended and there is thickening of the wall underlying UTI can not be excluded and urinalysis and clinical correlation are recommended. Reproductive: Unremarkable as visualized. Bones/joints: There has been no interval change. No acute fracture. Soft tissues: Unremarkable. Other findings: Lack of intravenous contrast limits evaluation of solid organs. CT/CT kidney stone [id number] IMPRESSION: 1. Findings suggestive of UTI, recommend clinical correlation and urinalysis. Pyelonephritis can not be excluded. 2. Inflamed but not dilated ureters bilaterally, this could be the cause of patient's pain.
[2022-10-05] MEDS: sodium chloride 0.9% 1,000 ML 999 ML IV (23:32)
[2022-10-05 23:44] LABS: Alanine Aminotransferase 20 U/L (0-33); Alkaline Phosphatase 101 U/L (35-105); Blood Urea Nitrogen 11 mg/dL (6-20); Calcium 9.3 mg/dL (8.5-10.5); Carbon Dioxide 25 mmol/L (22-29); Chloride 101 mmol/L (98-107); Creatinine Clr Calc Pharmacy 112.1223; Globulin 3.2 g/dL (1.3-4.6); Glomerular Filtration Rate 95.8 mL/min (90-130); Glucose 87 mg/dL (65-115); Lipase 20 U/L (13-60); Osmolality Calculated 283 mOsm/kg (285-295); Sodium 137 mmol/L (136-145); Total Bilirubin 0.3 mg/dL (0.15-1.2); Total Protein 7.2 g/dL (6.6-8.7)
[2022-10-05 23:46] LABS: Anion Gap 15.1 (5-19); Aspartate Amino Transferase 15 U/L (0-32); Potassium 4.1 mmol/L (3.5-5.1)
[2022-10-05] MEDS: metoclopramide 5 mg/mL SDV 2 mL 10 MG IVP (23:50)
[2022-10-05] MEDS: diphenhydrAMINE 50 mg/mL SDV 1mL IVP (23:53)
[2022-10-05] MEDS: cefTRIAXone 1,000 MG in sodium chloride 0.9% (plus) 50 ML 100 MG IV (23:57)
[2022-10-06 00:30] VITALS: BP 144/95; PULSE 82; O2SAT 98
--- NOTE | 2022-10-06 00:45 | W.ED.FEMALGU ---
HPI - Female Genitourinary General: Chief complaint: Urogenital-Female Stated complaint: abdomen pain, nausous Time Seen by Provider: 10/05/22 23:20 Source: patient Mode of arrival: ambulatory Limitations: no limitations History of Present Illness: With [id number] female who states that she had some lower abdominal pain over the last 2 days states she had UTIs in the past this feels similar. She rates her pain a 4 out of 10 she denies any vaginal discharge denies any fevers states she also has an abscess to her left armpit she had many abscesses in the past Associated symptoms: Reports abdominal pain; Deny headache(s) or nausea Review of Systems Const: Denies: fever(s) or chills ENMT: Denies: throat pain or dental pain Card: Denies: chest pain Resp: Denies: dyspnea GI: Reports: abdominal pain; Denies: nausea, vomiting or diarrhea : Reports: dysuria Musc: Denies: neck pain or back pain Skin/Breast: Denies: rash Neuro: Denies: headache(s) PFSH ED PFSH: Medical History Anxiety and depression Asthma Crohn's disease Irritable bowel syndrome Obesity PTSD (post-traumatic stress disorder) Seizure disorder Substance abuse Surgical History H/O adenoidectomy H/O: hysterectomy History of appendectomy History of myringotomy History of placement of ear tubes History of tonsillectomy Family History Other Cancer Social History Smoking and tobacco status: current every day smoker Substance/Drug Use: current Physical Exam Const: COMMON NORMALS: patient oriented x3 HENMT: COMMON NORMALS: normocephalic and atraumatic HEAD & SCALP: normocephalic and atraumatic Neck/C-Spine: COMMON NORMALS: full ROM and supple Chest: COMMONS NORMALS: normal inspection of the chest and normal palpation of entire chest wall Resp: COMMON NORMALS: normal respiratory effort, No retractions, No use of accessory muscles and clear to auscultation bilaterally AUSCULTATION: clear to auscultation bilaterally Cardio: COMMON NORMALS: regular rate, regular rhythm and No murmurs present (Cardio) RATE: regular rate RHYTHM: regular rhythm GI: COMMON NORMALS: Normal to inspection, nondistended, normoactive bowel sounds present, Soft to palpation, non-tender and no masses PALPATION: Yes Soft to palpation Extremity: COMMON NORMALS: normal to inspection and full ROM Neuro: COMMON NORMALS: patient oriented x3, moves all extremities and no focal motor deficits Psych: COMMON NORMALS: mental status grossly normal, Normal thought process present and cooperative THOUGHT PROCESS: Normal thought process present Skin: NARRATIVE SKIN EXAM: Abscess noted to left armpit Procedures Abscess I/D Site: other (axilla) Side (if applicable): left Local Anesthetic: lidocaine 1% Amount of anesthesia used (mL): 6 Technique: incised with #11 blade Irrigation: No Packing used?: none Course Vital Signs: Vital signs: Vital Signs Temperature 98.2 F 10/05/22 22:58 Pulse Rate 105 H 10/05/22 22:58 Respiratory Rate 14 10/05/22 22:58 Blood Pressure 96/63 10/05/22 22:58 Pulse Oximetry 100 10/05/22 22:58 Oxygen Delivery Me thod Room Air 10/05/22 22:58 MDM - Female Medical Decision Making Patient presents with dysuria along with abdominal pain does have a UTI will start on Keflex she also has an abscess to her left armpit that was incised and drained we will place her on Bactrim for that she is to follow-up with PCP and return if worsening. Lab Data 10/05/22 23:20 10/05/22 23:20 Radiology Impressions Abdomen/Pelvis CT 10/05/22 23:30 IMPRESSION: 1. Findings suggestive of UTI, recommend clinical correlation and urinalysis. Pyelonephritis can not be excluded. 2. Inflamed but not dilated ureters bilaterally, this could be the cause of patient's pain. Laboratory Results WBC 14.7 10^3/uL (4.0-10.0) H 10/05/22 23:20 RBC 4.82 10^6/uL (4.1-5.3) 10/05/22 23:20 Hgb 13.1 g/dL (11.5-15.3) 10/05/22 23:20 Hct 40.3 % (37.0-47.0) 10/05/22 23:20 MCV 83.6 fl (81-99) 10/05/22 23:20 MCH 27.2 pg (28.0-34.0) L 10/05/22 23:20 MCHC 32.5 g/dL (30.0-36.0) 10/05/22 23:20 RDW 13.0 % (12.1-15.1) 10/05/22 23:20 Plt Count 262 10^3/cmm (130-400) 10/05/22 23:20 MPV 9.9 fL (7.4-10.4) 10/05/22 23:20 Neut % (Auto) 73.1 % 10/05/22 23:20 Lymph % (Auto) 21.3 % 10/05/22 23:20 Saunders % (Auto) 5.0 % 10/05/22 23:20 Eos % (Auto) 0.0 % 10/05/22 23:20 Baso % (Auto) 0.3 % 10/05/22 23:20 Neut # (Auto) 10.77 10^3/uL (1.8-7.7) H 10/05/22 23:20 Lymph # (Auto) 3.1 10^3/uL (0.8-4.8) 10/05/22 23:20 Saunders # (Auto) 0.7 10^3/uL (0.2-0.9) 10/05/22 23:20 Eos # (Auto) 0.0 10^3/uL (0.0-0.8) 10/05/22 23:20 Baso # (Auto) 0.0 10^3/uL (0.0-0.1) 10/05/22 23:20 Nucleated RBC % (auto) 0 % 10/05/22 23:20 Nucleated RBCs # 0.0 /100WBC 10/05/22 23:20 Sodium 137 mmol/L (136-145) 10/05/22 23:20 Potassium 4.1 mmol/L (3.5-5.1) 10/05/22 23:20 Chloride 101 mmol/L (98-107) 10/05/22 23:20 Carbon Dioxide 25 mmol/L (22-29) 10/05/22 23:20 Anion Gap 15.1 (5-19) 10/05/22 23:20 BUN 11 mg/dL (6-20) 10/05/22 23:20 Creatinine 0.7 mg/dL (0.5-0.9) 10/05/22 23:20 GFR Calculation 95.8 mL/min (90-130) 10/05/22 23:20 Glucose 87 mg/dL (65-115) 10/05/22 23:20 Calculated Osmolality 283 mOsm/kg (285-295) L 10/05/22 23:20 Calcium 9.3 mg/dL (8.5-10.5) 10/05/22 23:20 Total Bilirubin 0.3 mg/dL (0.15-1.2) 10/05/22 23:20 AST 15 U/L (0-32) 10/05/22 23:20 ALT 20 U/L (0-33) 10/05/22 23:20 Alkaline Phosphatase 101 U/L (35-105) 10/05/22 23:20 Total Protein 7.2 g/dL (6.6-8.7) 10/05/22 23:20 Albumin 4.0 g/dL (3.5-5.2) 10/05/22 23:20 Globulin 3.2 g/dL (1.3-4.6) 10/05/22 23:20 Lipase 20 U/L (13-60) 10/05/22 23:20 HCG, Qual Negative (Negative) 10/05/22 23:09 Urine Color Yellow (Yellow) 10/05/22 22:03 Urine Appearance Cloudy (CLEAR) A 10/05/22 22:03 Urine pH 5 (5-7) 10/05/22 22:03 Ur Specific [place] 1.020 (1.005-1.030) 10/05/22 22:03 Urine Protein 1+ (Negative) H 10/05/22 22:03 Urine Glucose (UA) Norm (Normal) 10/05/22 22:03 Urine Ketones Negative (Negative) 10/05/22 22:03 Urine Blood 3+ (Negative) H 10/05/22 22:03 Urine Nitrate Negative (Negative) 10/05/22 22:03 Urine Bilirubin Neg (Negative) 10/05/22 22:03 Urine Urobilinogen Norm mg/dL (Negative) 10/05/22 22:03 Ur Leukocyte Esterase 2+ (Negative) H 10/05/22 22:03 Urine RBC Too numerous to cnt /hpf (0-2) H 10/05/22 22:03 Urine WBC Too numerous to cnt /hpf (0-5) H 10/05/22 22:03 Ur Squamous Epith Cells 0-4 /hpf (0-5) H 10/05/22 22:03 Ur Transition Epith Cell 0-4 /hpf 10/05/22 22:03 Amorphous Sediment Not Reportable 10/05/22 22:03 Urine Bacteria 1+ /hpf (NONE) H 10/05/22 22:03 Discharge Plan Discharge Patient Disposition: Home Clinical Impression: Urinary tract infection, Abscess Condition: Stable Prescriptions: New Bactrim DS 800-160 mg tablet 1 tab PO BID 10 Days Qty: 20 0RF cephalexin 500 mg capsule 500 mg PO TID 7 Days Qty: 21 0RF Naprosyn 500 mg tablet 500 mg PO BID PRN (Reason: pain) Qty: 20 0RF No Action omeprazole 20 mg capsule,delayed release(DR/EC) 20 mg PO DAILY 360 Days Qty: 90 3RF ondansetron HCl 4 mg tablet 4 mg PO Q6H PRN (Reason: nausea and vomiting) Qty: 20 0RF Discharge Orders: Discharge ED (Routine); Ordered 10/06/22 Ordered By: Wan Calvo Referrals: Ilda Shirley MD [Primary Care Provider] - 1-3 days Discharge Diet: Advance as tolerated Discharge Activity: Resume usual activity Patient Instructions: Urinary Tract Infection in Women (ED), Abscess (ED) Coding Level of Care Code ED Diamond Merchant for Tulio Quevedo
[2022-10-06 01:00] VITALS: BP 125/90; PULSE 78; O2SAT 100
[2022-10-06 01:13] VITALS: BP 130/86; PULSE 79; RESP 18; O2SAT 100
== END 2022-10-06 01:15 | disposition home or self-care (01) ==
PROVIDERS: Emergency Provider Emergency Medicine; PCP Family Medicine
DX: N39.0 Urinary tract infection, site not specified (principal); L02.412 Cutaneous abscess of left axilla
CPT/HCPCS: 10060; 74176; 80053; 81001; 81025; 83690; 85025; 87077; 87086; 87186; 96365; 96375; 99285; J0696; J1200; J2765; J7030

== ENCOUNTER 2022-11-04 19:25 | Emergency (ER) | payer MEDICARE, MEDICAID, SELFPAY ==
[2022-11-04 19:34] VITALS: BP 160/97; PULSE 96; RESP 18; TEMP 36.7; O2SAT 90; BMI 32.9
--- NOTE | 2022-11-04 19:37 | ED_ITS ---
HPI - Extremity Injury (Lower) General: Chief Complaint: Skin/Abscess/Foreign Body Stated Complaint: stepped on nail right foot Time Seen by Provider: 11/04/22 19:37 History of Present Illness: 32-year-old female comes in today with complaints of puncture wound to the right foot. Patient thinks that she stepped on a nail last night. Patient has increasing redness and tenderness to the foot. Patient also cannot recall her last tetanus of most ED does not updated tetanus vaccine. Review of Systems General: Reports: 10 or more systems reviewed and unremarkable except in HPI and below Musc: Reports: extremity pain Skin/Breast: Reports: erythema [facility] ED PFSH: Medical History Anxiety and depression Asthma Crohn's disease Irritable bowel syndrome Obesity PTSD (post-traumatic stress disorder) Seizure disorder Substance abuse Surgical History H/O adenoidectomy H/O: hysterectomy History of appendectomy History of myringotomy History of placement of ear tubes History of tonsillectomy Family History Other Cancer Social History Smoking and tobacco status: current every day smoker Substance/Drug Use: current Physical Exam Const: COMMON NORMALS: alert HENMT: COMMON NORMALS: normocephalic HEAD & SCALP: normocephalic Neck/C-Spine: COMMON NORMALS: full ROM Resp: COMMON NORMALS: normal respiratory effort Cardio: COMMON NORMALS: regular rate RATE: regular rate Extremity: RIGHT LOWER EXTREMITY: Yes foot & digits (Midfoot sole, puncture wound with 2 cm surrounding redness) Neuro: SENSORIUM/ORIENTATION: Yes alert Skin: TRAUMA: puncture (Right foot, midfoot, surrounding redness) Course Vital Signs: Vital signs: Vital Signs Temperature 98.1 F 11/04/22 19:34 Pulse Rate 96 11/04/22 19:34 Respiratory Rate 18 11/04/22 19:34 Blood Pressure 160/97 11/04/22 19:34 Pulse Oximetry 90 11/04/22 19:34 Oxygen Delivery Me thod Room Air 11/04/22 19:34 MDM - Extremity Injury (Lower) Medical Decision Making 32-year-old female comes in today with a puncture wound to the bottom of the right foot. Patient reports injury occurred last night. Patient came in due to increased soreness and redness to the wound and needing a updated tetanus. Differential diagnosis includes abscess, wound infection, need for prophylaxis tetanus, foreign body. No foreign body or fractures are noted. No palpable abscess is noted. I believe the patient probably has secondary infection to a puncture wound which we will treat with Augmentin. Patient's tetanus was updated. Patient reported understanding and agreed to plan. Patient was stable and discharged home. Discharge Plan Discharge Patient Disposition: Home Clinical Impression: Puncture wound of foot Qualifiers: Encounter type: initial encounter Laterality: right Qualified Code(s): S91.331A - Puncture wound without foreign body, right foot, initial encounter Condition: Stable Prescriptions: New amoxicillin-pot clavulanate 875-125 mg tablet 1 tab PO BID Qty: 14 0RF No Action omeprazole 20 mg capsule,delayed release(DR/EC) 20 mg PO DAILY 360 Days Qty: 90 3RF ondansetron HCl 4 mg tablet 4 mg PO Q6H PRN (Reason: nausea and vomiting) Qty: 20 0RF Naprosyn 500 mg tablet 500 mg PO BID PRN (Reason: pain) Qty: 20 0RF Discharge Orders: Discharge ED (Routine); Ordered 11/04/22 Ordered By: Richard Angel Referrals: Ilda Shirley MD [Primary Care Provider] - Discharge Diet: Usual diet Discharge Activity: Increase activity as tolerated Patient Instructions: Puncture Wound in the Foot (ED) Activity Restrictions/Additional Instructions: Clean wound gently with mild soap and water. Antibiotics by mouth. Follow-up with primary care for further instructions. Return to ED for new concerns. 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
[2022-11-04] MEDS: tetanus-dipt-pertussis 0.5 mL SDV IM (19:54)
[2022-11-04] MEDS: amoxicillin-clav 875-125 mg Tablet 1 TAB PO (19:55)
== END 2022-11-04 20:04 | disposition home or self-care (01) ==
PROVIDERS: Emergency Provider Nurse Practitioner Family; PCP Family Medicine
DX: S91.331A Puncture wound without foreign body, right foot, initial encounter (principal); F17.210 Nicotine dependence, cigarettes, uncomplicated; W45.0XXA Nail entering through skin, initial encounter; Z23 Encounter for immunization
CPT/HCPCS: 90471; 90715; 99283

== ENCOUNTER 2023-01-26 17:09 | Emergency (ER) | payer MEDICARE, MEDICAID, SELFPAY ==
[2023-01-26 17:44] VITALS: BP 145/90; PULSE 98; RESP 18; TEMP 36.8; O2SAT 100; BMI 32.9
[2023-01-26 17:58] VITALS: BP 166/100; PULSE 108; O2SAT 99
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
[2023-01-26] MEDS: ketorolac 30 mg/mL INJ IM (18:24)
[2023-01-26 18:27] VITALS: BP 171/143; PULSE 104; O2SAT 98
[2023-01-26 19:40] VITALS: BP 132/98; PULSE 98; RESP 18; O2SAT 98
[2023-01-26 19:41] VITALS: BP 132/98; PULSE 98; RESP 18; O2SAT 98
== END 2023-01-26 19:42 | disposition home or self-care (01) ==
PROVIDERS: Emergency Provider Internal Medicine; PCP Family Medicine
DX: S60.032A Contusion of left middle finger without damage to nail, initial encounter (principal); Z72.0 Tobacco use; V59.50XA Passenger in pick-up truck or van injured in collision with unspecified motor vehicles in traffic accident, initial encounter
CPT/HCPCS: 96372; 99284; J1885

== ENCOUNTER 2023-05-07 23:01 | Emergency (ER) | payer MEDICARE, MEDICAID, SELFPAY ==
[2023-05-07 23:05] VITALS: BP 151/106; PULSE 90; RESP 16; TEMP 36.7; O2SAT 99; BMI 33.0
--- NOTE | 2023-05-07 23:27 | ED_ITS ---
HPI - Extremity Problem General: Chief complaint: Extremity Injury, Upper Stated complaint: left arm pain Time Seen by Provider: 05/07/23 23:23 History of Present Illness: 33-year-old female comes in today with a n injury to the left forearm. Patient reports slipping and falling and striking the arm against the steps on wet steps. Patient has noticeable bruise and swelling to the left forearm. Review of Systems General: Reports: 10 or more systems reviewed and unremarkable except in HPI and below Musc: Reports: extremity pain and extremity swelling PFSH ED PFSH: Medical History Anxiety and depression Asthma Crohn's disease Irritable bowel syndrome Obesity PTSD (post-traumatic stress disorder) Seizure disorder Substance abuse Surgical History H/O adenoidectomy H/O: hysterectomy History of appendectomy History of myringotomy History of placement of ear tubes History of tonsillectomy Family History Other Cancer Social History Smoking and tobacco/nicotine status: current every day tobacco/nicotine user Substance/Drug Use: current Physical Exam Const: COMMON NORMALS: alert HENMT: COMMON NORMALS: normocephalic HEAD & SCALP: normocephalic Neck/C-Spine: COMMON NORMALS: full ROM Resp: COMMON NORMALS: normal respiratory effort and clear to auscultation bilaterally AUSCULTATION: clear to auscultation bilaterally Cardio: COMMON NORMALS: regular rate and regular rhythm RATE: regular rate RHYTHM: regular rhythm Back/Pelvis: COMMON NORMALS: thoracic and lumbar spine normal to inspection Extremity: LEFT UPPER EXTREMITY: Yes lower arm (Linear bruise with swelling dorsal forearm) Neuro: SENSORIUM/ORIENTATION: Yes alert Skin: COMMON NORMALS: turgor normal GENERAL SKIN EXAM: turgor normal Course Vital Signs: Vital signs: Vital Signs Temperature 98.0 F 05/07/23 23:05 Pulse Rate 91 05/07/23 23:30 Respiratory Rate 18 05/07/23 23:30 Blood Pressure 143/94 05/07/23 23:30 Pulse Oximetry 97 05/07/23 23:30 Oxygen Delivery Me thod Room Air 05/07/23 23:05 MDM - Extremity (Nontraumatic) Medical Decision Making 33-year-old female comes in today with injury to the left forearm. Patient reports slipping on wet steps while going up the stairs. Patient has some bruising to the dorsal forearm. Differential diagnosis includes not limited to fracture, contusion, dislocation. X-ray of the forearm noted no fracture. Believe patient probably has a small hematoma and bruise to the forearm. Recommended activity as tolerated. Ice packs for pain. Tylenol and ibuprofen for further pain control. Patient reported understanding and agreed to plan. XR interpretation done by ED provider, pending radiology final review Discharge Plan Discharge Patient Disposition: Home Clinical Impression: Fall (on) (from) other stairs and steps, initial encounter Contusion of forearm, left Qualifiers: Encounter type: initial encounter Qualified Code(s): S50.12XA - Contusion of left forearm, initial encounter Condition: Stable Prescriptions: No Action omeprazole 20 mg capsule,delayed release(DR/EC) 20 mg PO DAILY 360 Days Qty: 90 3RF amoxicillin-pot clavulanate 875-125 mg tablet 1 tab PO BID Qty: 14 0RF cyclobenzaprine 10 mg tablet 10 mg PO BID Qty: 14 0RF Naprosyn 500 mg tablet 500 mg PO Q12H Qty: 14 0RF ondansetron HCl 4 mg tablet 4 mg PO Q6H PRN (Reason: nausea and vomiting) Qty: 20 0RF Naprosyn 500 mg tablet 500 mg PO BID PRN (Reason: pain) Qty: 20 0RF Discharge Orders: Discharge ED (Routine); Ordered 05/07/23 Ordered By: Richard Angel Referrals: Ilda Shirley MD [Primary Care Provider] - Discharge Diet: Usual diet Discharge Activity: Increase activity as tolerated Patient Instructions: Contusion in Adults (ED) Activity Restrictions/Additional Instructions: Elevate arm. Activity as tolerated. Use ice pack for comfort. Use holly taminophen and ibuprofen for further pain. Follow-up with primary care for further instructions. Return to ED for new concerns. Coding Level of Care Code ED Before And After School Daycare Worker for Tulio Quevedo
--- NOTE | 2023-05-07 23:27 | XRR_ITS ---
PROCEDURE INFORMATION: Exam: XR Left Forearm Exam date and time: 05/07/2023 11:43 PM Age: 33 years old Clinical indication: Injury or trauma; Fall; Blunt trauma (contusions or hematomas); Arm, lower; Left; Additional info: Fall injury TECHNIQUE: Imaging protocol: Radiologic exam of the left forearm. Views: 2 views. COMPARISON: No relevant prior studies available. FINDINGS: Bones/joints: Normal. Soft tissues: Normal. XR/XR forearm LT 2V [id number] IMPRESSION: No acute findings.
[2023-05-07 23:30] VITALS: BP 143/94; PULSE 91; RESP 18; O2SAT 97
[2023-05-08 00:08] VITALS: BP 130/83; PULSE 95; RESP 16; O2SAT 96
== END 2023-05-08 00:08 | disposition home or self-care (01) ==
PROVIDERS: Emergency Provider Nurse Practitioner Family; PCP Family Medicine
DX: S50.12XA Contusion of left forearm, initial encounter (principal); Z72.0 Tobacco use; W01.198A Fall on same level from slipping, tripping and stumbling with subsequent striking against other object, initial encounter
CPT/HCPCS: 73090; 99283

== ENCOUNTER 2023-05-20 00:58 | Emergency (ER) | payer MEDICARE, MEDICAID, SELFPAY ==
[2023-05-20 01:00] VITALS: BP 114/95; PULSE 97; RESP 18; TEMP 36.4; O2SAT 100; BMI 32.9
--- NOTE | 2023-05-20 01:06 | CTR_ITS ---
PROCEDURE INFORMATION: Exam: CT Abdomen And Pelvis With Contrast Exam date and time: 05/20/2023 2:42 AM Age: 33 years old Clinical indication: Abdominal pain; Prior surgery; Surgery date: 6+ months; Surgery type: Hyst, appendix TECHNIQUE: Imaging protocol: Computed tomography of the abdomen and pelvis with contrast. Radiation optimization: All CT scans at this facility use at least one of these dose optimization techniques: automated exposure control; mA and/or kV adjustment per patient size (includes targeted exams where dose is matched to clinical indication); or iterative reconstruction. Contrast material: OMNI 350; Contrast volume: 100 ml; Contrast route: INTRAVENOUS (IV); COMPARISON: CT kidney stone [id number] 10/05/2022 11:37 PM RADIATION DOSE METRICS: Total DLP (mGy-cm): 698.8 FINDINGS: Lungs: Lung bases are clear as visualized. Heart: Base of heart is unremarkable as visualized. Liver: Stable right hepatic cyst. Gallbladder and bile ducts: Normal. No calcified stones. No ductal dilation. Pancreas: Normal. No ductal dilation. Spleen: Multiple stable splenules are noted. Adrenal glands: Normal. No mass. Kidneys and ureters: Normal. No hydronephrosis. Stomach and bowel: Unremarkable. No obstruction. No mucosal thickening. Appendix: Status post appendectomy. Intraperitoneal space: Unremarkable. No free air. No significant fluid collection. Vasculature: Multiple pelvic phleboliths are noted. Lymph nodes: Unremarkable. No enlarged lymph nodes. Urinary bladder: Bladder is decompressed with circumferential wall thickening. Mild surrounding inflammatory change. Reproductive: Left corpus luteal cyst. Status post hysterectomy. Bones/joints: Unremarkable. No acute fracture. Soft tissues: Unremarkable. CT/CT abdomen pelvis w con* [id number] IMPRESSION: 1. Possible mild cystitis. Correlate with laboratory findings. 2. Additional findings as above.
--- NOTE | 2023-05-20 01:08 | W.ED.ABDPA2 ---
HPI - Abdominal Pain General: Chief Complaint: Abdominal Pain Stated Complaint: abd pain Time Seen by Provider: 05/20/23 01:02 History of Present Illness: 33-year-old female presents to the emergency department via EMS personnel stating that she has generalized abdominal pain that started approximately 2 days ago. She states she has a history of Crohn's disease. She states that she feels bloated to her abdomen and states that she was able to move some gas while on the ambulance but states that she feels like she needs a NG tube to help the rest. She states her intermittent abdominal cramping pain is a 5 out of 10. She states nothing seems to make it better and nothing seems to make it worse. Associated Symptoms: Denies fever(s), nausea and vomiting Review of Systems General: Reports: 10 or more systems reviewed and unremarkable except in HPI and below Const: Denies: fever(s), fatigue or malaise GI: Reports: abdominal pain; Denies: nausea or vomiting PFS ED PFSH: Medical History Anxiety and depression Asthma Crohn's disease Irritable bowel syndrome Obesity PTSD (post-traumatic stress disorder) Seizure disorder Substance abuse Surgical History H/O adenoidectomy H/O: hysterectomy History of appendectomy History of myringotomy History of placement of ear tubes History of tonsillectomy Family History Other Cancer Social History Smoking and tobacco/nicotine status: current every day tobacco/nicotine user Substance/Drug Use: current Physical Exam Narrative: EXAM NARRATIVE: Constitutional: the patient appears well nourished and of normal development. Vital signs as documented. No acute distress at present. Alert and oriented-to person, place, time and situation. Head, eyes, ears, nose, mouth, throat: Normocephalic, atraumatic. Pupils-equal, round, reactive to light. No scleral icterus. Normal-appearing external ears. Normal appearing nasal turbinates, no drainage. No obvious oral lesions, posterior oropharynx without erythema or exudates. Neck: Supple, trachea is midline, no lymphadenopathy, no jugular venous distension, thyromegaly, or carotid bruits. Carotid upstrokes are brisk bilaterally. Lungs: clear to auscultation to all lung angelo. Symmetrical rise and fall of chest, no obvious signs of increased work of breathing at present. Cardiac: Regular rate and rhythm, positive S1, S2. No murmurs, rubs or gallops that I can appreciate Abdomen: Soft, non-tender to palpation, normal active bowel sounds to all quadrants. No palpable masses, no organomegaly and abdominal bruits. Extremities: 2+ pulses in the upper extremities that are equal bilaterally, 2+ pulses in the lower extremities that are equal bilaterally. Non-edematous. Moves all extremities well, sensation to all extremities are noted. Skin: Warm, dry, intact. Course Vital Signs: Vital signs: Vital Signs Temperature 97.6 F 05/20/23 01:00 Pulse Rate 97 05/20/23 01:00 Respiratory Rate 18 05/20/23 01:00 Blood Pressure 140/91 05/20/23 03:24 Pulse Oximetry 100 05/20/23 03:24 Oxygen Delivery Me thod Room Air 05/20/23 03:24 MDM - Abdominal Pain Medical Decision Making Physical exam completed and documented given the patient's past medical history and her elevated white blood cell count I will provide her antibiotics and have her follow-up with her primary care provider or metal sprayer machined parts for additional evaluation treatment and care. Medical Records I reviewed the patient's medical records. Lab Data I reviewed the patient's lab results. 05/20/23 02:34 05/20/23 02:34 Labs/Radiology: Radiology Impressions Abdomen/Pelvis CT 05/20/23 01:06 IMPRESSION: 1. Possible mild cystitis. Correlate with laboratory findings. 2. Additional findings as above. Laboratory Results WBC 14.34 10^3/uL (3.29-11.43) H 05/20/23 02:34 Corrected WBC Cancelled 05/20/23 02:14 RBC 5.01 10^6/uL (3.85-5.65) 05/20/23 02:34 Hgb 13.90 g/dL (11.27-16.99) 05/20/23 02:34 Hct 44.0 % (36-47) 05/20/23 02:34 MCV 87.8 fl (85-98) 05/20/23 02:34 MCH 27.7 pg (27-33) 05/20/23 02:34 MCHC 31.6 g/dL (30-55) 05/20/23 02:34 RDW 13.0 % (12.1-15.1) 05/20/23 02:34 Plt Count 300 10^3/cmm (157-399) 05/20/23 02:34 MPV 10.0 fL (7.4-10.4) 05/20/23 02:34 Gran % Cancelled 05/20/23 02:14 Neut % (Auto) 62.1 % 05/20/23 02:34 Lymph % (Auto) 31.9 % 05/20/23 02:34 Gem % (Auto) 5.3 % 05/20/23 02:34 Eos % (Auto) 0.0 % 05/20/23 02:34 Baso % (Auto) 0.4 % 05/20/23 02:34 Neut # (Auto) 8.91 10^3/uL (1.8-7.7) H 05/20/23 02:34 Lymph # (Auto) 4.6 10^3/uL (0.8-4.8) 05/20/23 02:34 Gem # (Auto) 0.8 10^3/uL (0.2-0.9) 05/20/23 02:34 Eos # (Auto) 0.0 10^3/uL (0.0-0.8) 05/20/23 02:34 Baso # (Auto) 0.1 10^3/uL (0.0-0.1) 05/20/23 02:34 Absolute Gran (auto) Cancelled 05/20/23 02:14 Nucleated RBC % (auto) 0 % 05/20/23 02:34 Nucleated RBCs # 0.0 /100WBC 05/20/23 02:34 Sodium 137 mmol/L (136-145) 05/20/23 02:34 Potassium 4.4 mmol/L (3.5-5.1) 05/20/23 02:34 Chloride 103 mmol/L (98-107) 05/20/23 02:34 Carbon Dioxide 20 mmol/L (22-29) L 05/20/23 02:34 Anion Gap 18.4 (5-19) 05/20/23 02:34 BUN 17 mg/dL (6-20) 05/20/23 02:34 Creatinine 0.7 mg/dL (0.5-0.9) 05/20/23 02:34 GFR Calculation 95.2 mL/min (90-130) 05/20/23 02:34 Glucose 95 mg/dL (65-115) 05/20/23 02:34 Calculated Osmolality 285 mOsm/kg (285-295) 05/20/23 02:34 Lactic Acid Cancelled 05/20/23 02:14 Lactate 1.2 mmol/L (0.5-2.2) 05/20/23 02:34 Calcium 9.6 mg/dL (8.5-10.5) 05/20/23 02:34 Total Bilirubin 0.3 mg/dL (0.15-1.2) 05/20/23 02:34 AST 24 U/L (0-32) 05/20/23 02:34 ALT 41 U/L (0-33) H 05/20/23 02:34 Alkaline Phosphatase 104 U/L (35-105) 05/20/23 02:34 Total Protein 7.7 g/dL (6.6-8.7) 05/20/23 02:34 Albumin 4.0 g/dL (3.5-5.2) 05/20/23 02:34 Globulin 3.7 g/dL (1.3-4.6) 05/20/23 02:34 Lipase 30 U/L (13-60) 05/20/23 02:34 Procalcitonin 0.05 ng/mL (0-0.5) 05/20/23 02:34 HCG, Qual Negative (Negative) 05/20/23 01:49 Urine Color Yellow (Yellow) 05/20/23 01:49 Urine Appearance Clear (CLEAR) 05/20/23 01:49 Urine pH 5 (5-7) 05/20/23 01:49 Ur Specific [place] 1.030 (1.005-1.030) 05/20/23 01:49 Urine Protein Neg (Negative) 05/20/23 01:49 Urine Glucose (UA) Norm (Normal) 05/20/23 01:49 Urine Ketones Negative (Negative) 05/20/23 01:49 Urine Blood Neg (Negative) 05/20/23 01:49 Urine Nitrate Negative (Negative) 05/20/23 01:49 Urine Bilirubin Neg (Negative) 05/20/23 01:49 Urine Urobilinogen Neg mg/dL (Negative) 05/20/23 01:49 Ur Leukocyte Esterase Negative (Negative) 05/20/23 01:49 All radiology interpretation(s) finalized by discharge Discharge Plan Discharge Patient Disposition: Home Clinical Impression: Cystitis, Abdominal pain, Leukocytosis Condition: Stable Prescriptions: New levofloxacin 750 mg tablet 750 mg PO DAILY 7 Days Qty: 7 0RF No Action omeprazole 20 mg capsule,delayed release(DR/EC) 20 mg PO DAILY 360 Days Qty: 90 3RF amoxicillin-pot clavulanate 875-125 mg tablet 1 tab PO BID Qty: 14 0RF cyclobenzaprine 10 mg tablet 10 mg PO BID Qty: 14 0RF Naprosyn 500 mg tablet 500 mg PO Q12H Qty: 14 0RF ondansetron HCl 4 mg tablet 4 mg PO Q6H PRN (Reason: nausea and vomiting) Qty: 20 0RF Naprosyn 500 mg tablet 500 mg PO BID PRN (Reason: pain) Qty: 20 0RF Discharge Orders: Discharge ED (Routine); Ordered 05/20/23 Ordered By: Mario To Referrals: Ilda Shirley MD [Primary Care Provider] - Discharge Diet: Usual diet Discharge Activity: Resume usual activity Patient Instructions: Abdominal Pain (ED), Opioid Safety, Pain Management Activity Restrictions/Additional Instructions: Activity Restrictions/Additional Instructions: Thank you for choosing [facility] for your healthcare needs today. Please realize that you were seen in the Emergency Department and that we are providing you with an emergency medical screening exam and this may not be a complete and all inclusive of all the testing and or medical work-up that you may need to determine your ailment or severity of your illness. It is very important that you follow-up as instructed with your Primary care provider or Specialist for additional evaluation and to discuss your medical treatment plan. Coding Level of Care Code ED Social Work Manager for Tulio uQevedo
[2023-05-20 01:44] VITALS: BP 114/95; O2SAT 100
[2023-05-20 01:53] LABS: Add Urine Microscopic? NO; Charge for UA Resulting for Rev
[2023-05-20 01:57] LABS: Bilirubin Urine Neg (Negative); Blood Urine Neg (Negative); Glucose Urine UA Norm (Normal); Ketones Urine Negative (Negative); Leukocyte Esterase Urine Negative (Negative); Nitrate Urine Negative (Negative); Protein Urine Neg (Negative); Urine Appearance Clear (CLEAR); Urine Color Yellow (Yellow); Urobilinogen Urine Neg (Negative); pH Urine 5 (5-7)
[2023-05-20 02:09] LABS: HCG Qualitative Urine. Negative (Negative)
[2023-05-20 02:37] VITALS: O2SAT 100
[2023-05-20 02:38] LABS: Basophils # 0.1 10^3/uL (0.0-0.1); Basophils % 0.4 %; Lymphocytes # 4.6 10^3/uL (0.8-4.8); Lymphocytes % 31.9 %; Mean Corpuscular HGB Conc 31.6 g/dL (30-55); Mean Corpuscular Hemoglobin 27.7 pg (27-33); Mean Corpuscular Volume 87.8 fl (85-98); Monocytes # 0.8 10^3/uL (0.2-0.9); Monocytes % 5.3 %; Neutrophils # 8.91 10^3/uL (1.8-7.7); Neutrophils % 62.1 %; Nucleated Red Blood Cells % 0 %; Platelet Count 300 10^3/cmm (157-399); Red Blood Count 5.01 10^6/uL (3.85-5.65); White Blood Count 14.34 10^3/uL (3.29-11.43)
[2023-05-20] MEDS: iohexol 350 mg/mL 500 mL Btl (per mL) IV (02:43)
[2023-05-20 02:56] LABS: Lactate (Lactic Acid level) 1.2 mmol/L (0.5-2.2)
[2023-05-20 03:03] LABS: Procalcitonin 0.05 ng/mL (0-0.5)
[2023-05-20 03:22] LABS: Alanine Aminotransferase 41 U/L (0-33); Alkaline Phosphatase 104 U/L (35-105); Aspartate Amino Transferase 24 U/L (0-32); Blood Urea Nitrogen 17 mg/dL (6-20); Calcium 9.6 mg/dL (8.5-10.5); Carbon Dioxide 20 mmol/L (22-29); Chloride 103 mmol/L (98-107); Creatinine Clr Calc Pharmacy 111.0645; Globulin 3.7 g/dL (1.3-4.6); Glomerular Filtration Rate 95.2 mL/min (90-130); Glucose 95 mg/dL (65-115); Lipase 30 U/L (13-60); Osmolality Calculated 285 mOsm/kg (285-295); Sodium 137 mmol/L (136-145); Total Bilirubin 0.3 mg/dL (0.15-1.2); Total Protein 7.7 g/dL (6.6-8.7)
[2023-05-20 03:23] LABS: Anion Gap 18.4 (5-19); Potassium 4.4 mmol/L (3.5-5.1)
[2023-05-20 03:24] VITALS: BP 140/91; O2SAT 100
[2023-05-20 04:24] LABS: Reflex Lactate Order REFLEX LACTIC ORDERD
[2023-05-20 04:27] VITALS: BP 144/97; PULSE 108; RESP 16; O2SAT 98
== END 2023-05-20 04:32 | disposition home or self-care (01) ==
PROVIDERS: Emergency Provider Internal Medicine; PCP Family Medicine
DX: N30.90 Cystitis, unspecified without hematuria (principal); R10.84 Generalized abdominal pain; D72.829 Elevated white blood cell count, unspecified; Z72.0 Tobacco use
CPT/HCPCS: 74177; 80053; 81003; 81025; 83605; 83690; 84145; 85025; 99285; Q9967

== ENCOUNTER 2023-08-18 21:42 | Emergency (ER) | payer MEDICAID, SELFPAY ==
[2023-08-18 21:48] VITALS: BP 150/93; PULSE 92; RESP 18; TEMP 36.8; O2SAT 97
--- NOTE | 2023-08-18 22:10 | ED_ITS ---
HPI - Ear Problem General: Chief complaint: Ear Stated complaint: Right ear pain Time Seen by Provider: 08/18/23 21:45 Source: patient Mode of arrival: ambulatory Limitations: no limitations History of Present Illness: Patient is a 33-year-old female presenting to the emergency department complaining of right-sided ear pain for the past few days. Patient states pain began after going swimming. She has bilateral tympanostomy tubes placed approximately 1 year ago, but states that she did not go to her last ENT appointment. She states that the tubes were placed for recurrent ear infection purposes. She is also noting some pain radiating into her jaw. Also had some teeth pulled today at dentist. Has not been running fevers at home but states she has not gotten relief from taking ibuprofen or Tylenol. She does have a history of Crohn's disease and states that this limits her from taking ibuprofen. No other symptoms reported at this time. MD Complaint: ear pain Location: right ear Duration: constant Severity: severe Relieving factors: nothing Context: recent swimming Discharge from ear: yes - purulent Associated symptoms: Reports ear or mastoid pain; Denies fever(s), headache(s) or neck pain Review of Systems General: Reports: 10 or more systems reviewed and unremarkable except in HPI and below Const: Denies: fever(s), chills or fatigue Eyes: Denies: change in vision ENMT: Reports: ear or mastoid pain, ear discharge and sinus pain; Denies: throat pain or nasal discharge Card: Denies: chest pain, palpitations, swelling of feet/ankles or lightheadedness Resp: Denies: dyspnea, productive cough or wheezing GI: Denies: abdominal pain, nausea, vomiting, diarrhea or constipation : Denies: flank pain, difficulty voiding, dysuria or urinary frequency Musc: Denies: neck pain, back pain or joint pain Skin/Breast: Denies: rash Neuro: Denies: headache(s), numbness in extremities or weakness in extremities PFSH ED PFSH: Medical History Substance abuse Obesity Irritable bowel syndrome Asthma Seizure disorder Anxiety and depression PTSD (post-traumatic stress disorder) Crohn's disease Surgical History History of placement of ear tubes History of myringotomy H/O adenoidectomy History of tonsillectomy H/O: hysterectomy History of appendectomy Family History Other Cancer Social History Smoking and tobacco/nicotine status: current every day tobacco/nicotine user Substance/Drug Use: current Physical Exam Const: COMMON NORMALS: no acute distress and healthy appearing GENERAL APPEARANCE: cooperative, comfortable and well developed HENMT: COMMON NORMALS: normocephalic, atraumatic, hearing grossly normal bilaterally, Normal external nose present and Normal nasal mucous membranes and turbinates present HEAD & SCALP: normal to inspection, normocephalic and atraumatic FACE & SINUS: normal facial exam and sinuses nontender NOSE: Normal external nose present, Normal nares present, No nasal polyps present and Normal nasal mucous membranes and turbinates present MOUTH: Normal oral and palatal mucosa present THROAT: posterior oropharynx normal and tonsils normal OTHER: Diffuse discharge that is purulent coming from patient's right external auditory canal. EAC is also erythematous. There is bilateral tympanostomy tubes present. Eye: COMMON NORMALS: EOMs intact bilaterally, conjunctivae normal and normal visual angelo by confrontation GENERAL EYE: appearance normal, both eyes and all related structures CONJUNCTIVA: Yes conjunctivae normal Neck/C-Spine: COMMON NORMALS: full ROM, no lymphadenopathy, supple and no meningeal signs GENERAL: Yes normal visual inspection Chest: COMMONS NORMALS: normal inspection of the chest Resp: COMMON NORMALS: normal respiratory effort and clear to auscultation bilaterally EFFORT & INSPECTION: Yes able to speak in complete sentences AUSCULTATION: clear to auscultation bilaterally Cardio: COMMON NORMALS: regular rate, regular rhythm, S1 normal heart sound present and S2 normal heart sound present RATE: regular rate RHYTHM: regular rhythm HEART SOUNDS: S1 normal heart sound present, S2 normal heart sound present, no gallops, no murmurs and no rubs GI: COMMON NORMALS: Soft to palpation and No hepatosplenomegaly present INSPECTION: Yes normal to inspection PALPATION: Yes Soft to palpation and Yes No hepatosplenomegaly present Extremity: COMMON NORMALS: normal to inspection, full ROM and capillary refill normal Neuro: MENINGEAL SIGNS: Yes no meningeal signs Skin: COMMON NORMALS: no rashes or lesions noted GENERAL SKIN EXAM: no rashes or lesions noted Course Vital Signs: Vital signs: Vital Signs Temperature 98.3 F 08/18/23 21:48 Pulse Rate 92 08/18/23 21:48 Respiratory Rate 18 08/18/23 21:48 Blood Pressure 150/93 08/18/23 21:48 Pulse Oximetry 97 08/18/23 21:48 Oxygen Delivery Me thod Room Air 08/18/23 21:48 MDM - Ear Medical Decision Making Patient presents with clinical signs and symptoms of a swimmer's ear, being that her pain started after swimming. She does have TM tubes in place, and I informed her to follow-up with ENT tomorrow. She will be treated with Ciprodex and given steroids to aid in pain relief. She will continue taking Tylenol at home and she is informed to return to the emergency department with any new or concerning symptoms. No radiology studies performed this visit Discharge Plan Discharge Patient Disposition: Home Clinical Impression: Otitis externa Condition: Stable Prescriptions: New ciprofloxacin-dexamethasone 0.3-0.1 % drops,suspension 4 drp otic (ear) BID 7 Days Qty: 7.5 0RF prednisone 20 mg tablet 60 mg PO ONCE 5 Days Qty: 15 0RF No Action omeprazole 20 mg capsule,delayed release(DR/EC) 20 mg PO DAILY 360 Days Qty: 90 3RF amoxicillin-pot clavulanate 875-125 mg tablet 1 tab PO BID Qty: 14 0RF cyclobenzaprine 10 mg tablet 10 mg PO BID Qty: 14 0RF Naprosyn 500 mg tablet 500 mg PO Q12H Qty: 14 0RF ondansetron HCl 4 mg tablet 4 mg PO Q6H PRN (Reason: nausea and vomiting) Qty: 20 0RF Naprosyn 500 mg tablet 500 mg PO BID PRN (Reason: pain) Qty: 20 0RF Discharge Orders: Discharge ED (Routine); Ordered 08/18/23 Ordered By: Deon Toribio Referrals: Angeli Shirley [Primary Care Provider] - Discharge Diet: Usual diet Discharge Activity: Increase activity as tolerated Patient Instructions: Swimmer's Ear (ED) Activity Restrictions/Additional Instructions: Ciprofloxacin drops as prescribed. Take steroids. Please follow-up with ENT as discussed. Return with any new or concerning symptoms. Coding Level of Care Code ED Artificial Leather Calender Operator for Tulio Quevedo
[2023-08-18 22:15] VITALS: BP 150/101; PULSE 101; RESP 15; O2SAT 99
[2023-08-18] MEDS: ciprofloxacin-dexameth Otic Susp 7.5 mL Btl 4 DROP EAR-RIGHT (22:18)
[2023-08-18] MEDS: dexamethasone 10 mg/mL INJ IM (22:19)
== END 2023-08-18 22:38 | disposition home or self-care (01) ==
PROVIDERS: Emergency Provider Physician Assistant; PCP Nurse Practitioner Family
DX: H60.91 Unspecified otitis externa, right ear (principal); Z72.0 Tobacco use
CPT/HCPCS: 96372; 99284; J1100

== ENCOUNTER 2023-08-22 22:20 | Emergency (ER) | payer MEDICAID, SELFPAY ==
--- NOTE | 2023-08-22 22:21 | XRR_ITS ---
PROCEDURE INFORMATION: Exam: XR Chest Exam date and time: 08/22/2023 10:29 PM Age: 33 years old Clinical indication: Dyspnea; Additional info: SOB, difficulty breathing x 3 weeks TECHNIQUE: Imaging protocol: Radiologic exam of the chest. Views: 1 view. COMPARISON: CR XR chest 1V portable [id number] 08/23/2021 2:47 AM FINDINGS: Lungs: Unremarkable. No consolidation. Pleural spaces: Unremarkable. No pleural effusion. No pneumothorax. Heart/Mediastinum: Unremarkable. No cardiomegaly. Bones/joints: Unremarkable. XR/XR chest 1V portable [id number] IMPRESSION: No acute findings.
[2023-08-22 22:23] VITALS: BP 148/93; PULSE 120; RESP 24; TEMP 36.6; O2SAT 100; BMI 32.9
--- NOTE | 2023-08-22 23:00 | W.ED.URI ---
HPI - URI/Sore Throat General: Chief Complaint: Upper Respiratory Infection Stated Complaint: SOB Time Seen by Provider: 08/22/23 22:27 History of Present Illness: 33-year-old female comes in today for complaints of sinus pressure, drainage from both the ears, and feeling of malaise. Patient was started on prednisone and otic drops for her mucopurulent otitis media. Patient does have bilateral tympanostomy tubes. Review of Systems General: Reports: 10 or more systems reviewed and unremarkable except in HPI and below PFSH ED PFSH: Medical History Substance abuse Obesity Irritable bowel syndrome Asthma Seizure disorder Anxiety and depression PTSD (post-traumatic stress disorder) Crohn's disease Surgical History History of placement of ear tubes History of myringotomy H/O adenoidectomy History of tonsillectomy H/O: hysterectomy History of appendectomy Family History Other Cancer Social History Smoking and tobacco/nicotine status: current every day tobacco/nicotine user Substance/Drug Use: current Physical Exam Const: COMMON NORMALS: alert HENMT: COMMON NORMALS: normocephalic HEAD & SCALP: normocephalic TYMPANIC MEMBRANE: other (Tympanostomy tubes draining mucopurulent discharge) THROAT: posterior oropharynx abnormal (Drainage) erythema Neck/C-Spine: COMMON NORMALS: full ROM Resp: COMMON NORMALS: normal respiratory effort Cardio: COMMON NORMALS: regular rate RATE: regular rate Back/Pelvis: COMMON NORMALS: thoracic and lumbar spine normal to inspection Extremity: COMMON NORMALS: full ROM Neuro: SENSORIUM/ORIENTATION: Yes alert Skin: COMMON NORMALS: turgor normal GENERAL SKIN EXAM: turgor normal Course Vital Signs: Vital signs: Vital Signs Temperature 97.9 F 08/22/23 22:23 Pulse Rate 120 H 08/22/23 22:23 Respiratory Rate 24 H 08/22/23 22:23 Blood Pressure 148/93 08/22/23 22:23 Pulse Oximetry 100 08/22/23 22:23 MDM - URI/Sore Throat Medical Decision Making 33-year-old female comes in today with complaints of pharyngeal soreness and discharge from her nose. Patient appears nontoxic. Patient has mucopurulent drainage from tympanostomy tubes. Differential diagnosis upper respiratory infection, otitis chronic, rhinosinusitis. Will start patient on doxycycline for rhinosinusitis. Recommend follow-up with primary care or ENT. Patient reported understanding. XR interpretation done by ED provider, pending radiology final review Discharge Plan Discharge Patient Disposition: Home Clinical Impression: Sinusitis Qualifiers: Sinusitis location: maxillary Chronicity: unspecified Qualified Code(s): J32.0 - Chronic maxillary sinusitis Condition: Stable Prescriptions: New doxycycline hyclate 100 mg capsule 100 mg PO BID 7 Days Qty: 14 0RF No Action omeprazole 20 mg capsule,delayed release(DR/EC) 20 mg PO DAILY 360 Days Qty: 90 3RF amoxicillin-pot clavulanate 875-125 mg tablet 1 tab PO BID Qty: 14 0RF cyclobenzaprine 10 mg tablet 10 mg PO BID Qty: 14 0RF Naprosyn 500 mg tablet 500 mg PO Q12H Qty: 14 0RF ondansetron HCl 4 mg tablet 4 mg PO Q6H PRN (Reason: nausea and vomiting) Qty: 20 0RF Naprosyn 500 mg tablet 500 mg PO BID PRN (Reason: pain) Qty: 20 0RF ciprofloxacin-dexamethasone 0.3-0.1 % drops,suspension 4 drp otic (ear) BID 7 Days Qty: 7.5 0RF prednisone 20 mg tablet 60 mg PO ONCE 5 Days Qty: 15 0RF Discharge Orders: Discharge ED (Routine); Ordered 08/22/23 Ordered By: Ricahrd Angel Referrals: Angeli Shirley [Primary Care Provider] - Discharge Diet: Usual diet Discharge Activity: Increase activity as tolerated Patient Instructions: Upper Respiratory Infection (ED) Activity Restrictions/Additional Instructions: Continue with medications as directed. Follow-up with primary care for further instructions. Return to ED for new concerns. Coding Level of Care Code ED Vice President [employer] for Tulio Quevedo
[2023-08-22 23:24] VITALS: BP 148/93; PULSE 120; RESP 24; TEMP 36.6; O2SAT 100
== END 2023-08-22 23:25 | disposition home or self-care (01) ==
PROVIDERS: Emergency Provider Nurse Practitioner Family; PCP Nurse Practitioner Family
DX: J32.0 Chronic maxillary sinusitis (principal); Z72.0 Tobacco use
CPT/HCPCS: 71045; 99283

== ENCOUNTER 2024-04-09 01:58 | Emergency (ER) | payer MEDICARE, MEDICAID, SELFPAY ==
[2024-04-09 02:19] VITALS: BP 136/84; PULSE 103; RESP 18; TEMP 36.7; O2SAT 98; BMI 32.9
--- NOTE | 2024-04-09 02:39 | XRR_ITS ---
PROCEDURE INFORMATION: Exam: XR Chest Exam date and time: 04/09/2024 2:43 AM Age: 34 years old Clinical indication: Cough and shortness of breath; Cough with SOB TECHNIQUE: Imaging protocol: Radiologic exam of the chest. Views: 1 view. COMPARISON: CR XR chest 1V portable [id number] 08/22/2023 10:29 PM FINDINGS: Lungs: Unremarkable. No consolidation. Pleural spaces: Unremarkable. No pleural effusion. No pneumothorax. Heart/Mediastinum: Unremarkable. No cardiomegaly. Bones/joints: Unremarkable. XR/XR chest 1V portable [id number] IMPRESSION: No visualized acute cardiopulmonary process.
[2024-04-09 03:26] LABS: Influenza A POSITIVE (Negative); Influenza B NEGATIVE (Negative); Respiratory Syncytial Virus Ce NEGATIVE (Negative); SARS-CoV-2 PCR NEGATIVE (Negative)
[2024-04-09 03:55] VITALS: PULSE 97; RESP 17; O2SAT 97
[2024-04-09] MEDS: ipratropium-albuterol 3 mL Neb INHALATION (03:55)
[2024-04-09 04:24] VITALS: BP 126/81; PULSE 100; O2SAT 97
--- NOTE | 2024-04-09 19:34 | ED_ITS ---
HPI - SOB/Dyspnea General: Chief Complaint: Shortness of Breath/Dyspnea Stated Complaint: SOB chest and center of back hurt when breathe Time Seen by Provider: 04/09/24 02:31 History of Present Illness: HPI Narrative: This patient is a 34-year-old white female who presents to the emergency department with cough and cold symptoms. She states she was recently exposed to the flu. She is having some mild chest discomfort. She states she has a history of asthma. Related Data Previous Rx's ?Medication ?Instructions ?Recorded ondansetron HCl 4 mg tablet 4 mg PO Q6H PRN nausea and 05/09/22 vomiting #20 tabs omeprazole 20 mg capsule,delayed 20 mg PO DAILY 12 mon ths #90 caps 09/01/22 release naproxen 500 mg tablet (Naprosyn) 500 mg PO BID PRN pa in #20 tabs 10/06/22 amoxicillin 875 mg-potassium 1 tab PO BID #14 tabs 02/14 clavulanate 125 mg tablet cyclobenzaprine 10 mg tablet 10 mg PO BID #14 tabs 06/15 naproxen 500 mg tablet (Naprosyn) 500 mg PO Q12H #14 t abs 01/26/23 Allergies Allergy/AdvReac Type Severity Reaction Status Date / Time clonazepam (From Klonopin) Allergy ADR-Halluci Verified 08/18/23 21:50 nating codeine Allergy ALGY-Anaphy Verified 08/18/23 21:50 laxis promethazine Allergy ALGY-Redness Verified 08/18/23 21:50 of Skin tramadol Allergy ADR-Seizure Verified 08/18/23 21:50 Review of Systems General: Reports: 10 or more systems reviewed and unremarkable except in HPI and below ENMT: Reports: nasal discharge and nasal congestion Resp: Reports: non-productive cough PFSH ED PFSH: Medical History Substance abuse Obesity Irritable bowel syndrome Asthma Seizure disorder Anxiety and depression PTSD (post-traumatic stress disorder) Crohn's disease Surgical History History of placement of ear tubes History of myringotomy H/O adenoidectomy History of tonsillectomy H/O: hysterectomy History of appendectomy Family History Other Cancer Social History Smoking and tobacco/nicotine status: current every day tobacco/nicotine user Substance/Drug Use: current Physical Exam Const: COMMON NORMALS: no acute distress, patient oriented x3 and no limitations GENERAL APPEARANCE: cooperative and comfortable HENMT: COMMON NORMALS: normocephalic, atraumatic, moist oral mucous membranes and oropharynx normal HEAD & SCALP: normal to inspection, normocephalic and atraumatic FACE & SINUS: normal facial exam NOSE: Nasal discharge present Eye: COMMON NORMALS: Equal, round and reactive pupils present, EOMs intact bilaterally and conjunctivae normal GENERAL EYE: appearance normal, both eyes and all related structures CONJUNCTIVA: Yes conjunctivae normal PUPIL: Yes Equal, round and reactive pupils present Neck/C-Spine: COMMON NORMALS: supple and no JVD Chest: COMMONS NORMALS: normal inspection of the chest Resp: COMMON NORMALS: normal respiratory effort and clear to auscultation bilaterally AUSCULTATION: clear to auscultation bilaterally Cardio: COMMON NORMALS: no JVD, regular rate, regular rhythm, No gallops present (Cardio), No murmurs present (Cardio) and No rub (Cardio) RATE: regular rate RHYTHM: regular rhythm GI: COMMON NORMALS: Normal to inspection, nondistended, normoactive bowel sounds present, Soft to palpation and non-tender AUSCULTATION: Yes normoactive bowel sounds PALPATION: Yes Soft to palpation : COMMON NORMALS: Yes no CVA tenderness BLADDER/KIDNEY EXAM: Yes no CVA tenderness Back/Pelvis: COMMON NORMALS: no CVA tenderness and thoracic and lumbar spine normal to inspection Extremity: COMMON NORMALS: normal to inspection Neuro: COMMON NORMALS: patient oriented x3 and CN's II-XII intact bilaterally Psych: COMMON NORMALS: mental status grossly normal, Normal thought process present and cooperative THOUGHT PROCESS: Normal thought process present Skin: COMMON NORMALS: no rashes or lesions noted, turgor normal and no jaundice GENERAL SKIN EXAM: no rashes or lesions noted and turgor normal Course Vital Signs: Vital signs: Vital Signs Temperature 98.0 F 04/09/24 02:19 Pulse Rate 100 04/09/24 04:24 Respiratory Rate 17 04/09/24 03:55 Blood Pressure 126/81 04/09/24 04:24 Pulse Oximetry 97 04/09/24 04:24 Oxygen Delivery Me thod Room Air 04/09/24 03:55 MDM - SOB/Dyspnea Medical Decision Making Chest x-ray was normal. She did test positive for influenza A. She was given a DuoNeb treatment. I could not appreciate any wheezing on exam. Recommended she take [id number] cough and cold medications, Tylenol and/or ibuprofen for fever, aches and pains. Push fluids and get some rest. Follow-up with primary care physician next week for recheck if this has not resolved. She was discharged in stable condition. Lab Data Labs/Radiology: Radiology Impressions Chest X-Ray 04/09/24 02:39 IMPRESSION: No visualized acute cardiopulmonary process. Laboratory Results Coronavirus (PCR) Negative (Negative) 04/09/24 02:15 Influenza A (PCR) Positive (Negative) 04/09/24 02:15 Influenza Type B (PCR) Negative (Negative) 04/09/24 02:15 RSV (PCR) Negative (Negative) 04/09/24 02:15 All radiology interpretation(s) finalized by discharge Discharge Plan Discharge Patient Disposition: Home Clinical Impression: Influenza A Condition: Stable Prescriptions: No Action omeprazole 20 mg capsule,delayed release(DR/EC) 20 mg PO DAILY 360 Days Qty: 90 3RF amoxicillin-pot clavulanate 875-125 mg tablet 1 tab PO BID Qty: 14 0RF cyclobenzaprine 10 mg tablet 10 mg PO BID Qty: 14 0RF Naprosyn 500 mg tablet 500 mg PO Q12H Qty: 14 0RF ondansetron HCl 4 mg tablet 4 mg PO Q6H PRN (Reason: nausea and vomiting) Qty: 20 0RF Naprosyn 500 mg tablet 500 mg PO BID PRN (Reason: pain) Qty: 20 0RF Discharge Orders: Discharge ED (Routine); Ordered 04/09/24 Ordered By: Emir Yang Referrals: Angeli Shirley [Primary Care Provider] - Patient Instructions: Influenza (DC) Print Language: South African Coding Level of Care Code ED Computer System Specialist for [facility]
== END 2024-04-09 04:17 | disposition home or self-care (01) ==
PROVIDERS: Emergency Provider Emergency Medicine; PCP Nurse Practitioner Family
DX: J10.1 Influenza due to other identified influenza virus with other respiratory manifestations (principal); Z11.52 Encounter for screening for COVID-19; Z72.0 Tobacco use
CPT/HCPCS: 71045; 87637; 94640; 99284

== ENCOUNTER → 2024-09-11 15:59 | Outpatient (BNVA) | payer MEDICARE, MEDICAID, SELFPAY | PROVIDERS: PCP Nurse Practitioner Family; Visit Provider Emergency Medicine | DX: J02.9 Acute pharyngitis, unspecified (principal); R06.00 Dyspnea, unspecified | CPT/HCPCS: 87071; 87426; 87880 ==

== ENCOUNTER 2024-12-12 22:38 | Emergency (ER) | payer MEDICARE, MEDICAID, SELFPAY ==
[2024-12-12 22:42] VITALS: BP 151/90; PULSE 101; RESP 18; TEMP 36.6; O2SAT 99; BMI 32.9
--- OUTSIDE RECORDS SUMMARY | 2024-12-12 22:49 | XMS_ITS | Clinical Summary ---
Author Organization [facility] Address [address] Attn: Epic Prelude ADT [place] [id number] Care Team Providers Care School Examiner Name Role Phone Tennille Wheeler Primary Care Provider [phone] Social History Tobacco Use Types Packs/Day Years Used Date Smoking Tobacco: Every Day Cigarettes Alcohol Use Standard Drinks/Week Comments No 0 (1 standard drink = 0.6 oz pur e alcohol) Comments Unknown Sex and Gender Information Value Date Recorded Sex Assigned at Not on file Legal Sex Female 7:21 AM EXAMINING OFFICER Gender Identity Not on file Sexual Orientation Not on file Plan of Treatment Health Maintenance Due Date Last Done Comments HPV/Cotest (21-29) 2009 HPV VACCINES (1 - 3-dose SCD M series) 2015 CERVICAL CANCER SCREENING 2018 HPV/Cotest (30-65) 2018 PAP SMEAR 2018 DTAP/TDAP/TD VACCINES (3 - T d or Tdap) 06/13/2022 06/13/2012, 10/01/2011 INFLUENZA VACCINE (#1) 2024 HEPATITIS B VACCINES Completed 05/08/1998, 12/14/1997, 10/27/1997 Insurance MEDICAID [place] Care Teams School Examiner Relationship Specialty Start Date End Date Tennille Wheeler DO [address] [place] [id number] PCP - General Obstetrics and Gynecology 06/13/12
--- NOTE | 2024-12-12 22:56 | ECG_ITS ---
[facility] Date: 2024-12-12 Pat Name: Zuleyma Bryant Department: Room: Gender: Female Cyber Transport Systems Specialist: : 1990 Requested By: Sudha Mehta Order Number: [id number] Castanon MD: Tanisha Gonzales M.D. Measurements Intervals [place] Rate: 86 P: 60 DE: 129 QRS: 41 QRSD: 84 T: 46 QT: 370 QTc: 444 Interpretive Statements SINUS RHYTHM POSSIBLE RIGHT VENTRICULAR CONDUCTION DELAY [RSR (QR) IN V1/V2] Compared to ECG 08/21/2021 12:18:56 Sinus tachycardia no longer present T-wave abnormality no longer present Electronically Signed On 12-13-2024 19:38:43 CDT by Tanisha Gonzales M.D. [email or web address]
--- NOTE | 2024-12-12 23:30 | USR_ITS ---
PROCEDURE INFORMATION: Exam: US Soft Tissue Head and Neck, Thyroid Exam date and time: 12/12/2024 11:55 PM Age: 34 years old Clinical indication: Other: Neck lump ; Additional info: Neck lump TECHNIQUE: Imaging protocol: Real-time ultrasound scan of the neck with image documentation. Exam focused on the thyroid. COMPARISON: CT sinus wo con* [id number] 11/18/2020 2:35 PM FINDINGS: Right thyroid lobe: The right thyroid measures 4.8 x 1.6 x 1.1 cm. Left thyroid lobe: The left thyroid measures 5.3 x 1.7 x 1.1 cm. Isthmus: The isthmus measures 0.2 cm. Lymph nodes: No lymphadenopathy. Other findings: Thyroid echogenicity and echotexture are normal. No nodules. Normal color Doppler flow. US/US thyroid [id number] IMPRESSION: 1. No acute sonographic findings to explain the patient's symptoms. 2. Normal thyroid.
--- NOTE | 2024-12-12 23:34 | ED_ITS ---
HPI - General Adult 2 General: Chief complaint: Abdominal Pain Stated complaint: Abd pain, Abscess on chest Time Seen by Provider: 12/12/24 22:43 Source: patient Mode of arrival: ambulatory Limitations: no limitations History of Present Illness: Patient is a 34-year-old female here for multiple medical complaints. Her first of which is abdominal pain and epigastric pain. She states she is having some vomiting. She reports a longstanding history of stomach issues and reports multiple issues with her Crohn's disease. She states she does follow-up with a specialist in [place]. She has conflicting stories as she has been told by specialist that she does not have Crohn's disease but then other ones that she does. She feels like she needs an NG tube to decompress her stomach. She is a and drinking normally. She is passing stool and gas. Patient also has a complaint of a forming abscess to the right breast that she has noticed over the past several days. She does have a history of staph. She also has a complaint of a lump to the back of her neck and another lump just above that. She initially tells me these have been present for years but later tells me just a few weeks. She feels like they radiate into the right side of her neck and feels like she has a lump to her right anterior neck as well. Patient overall is a very poor historian and jumps frequently from topic to topic. She admittedly does not go to a doctor and states that she wants all of my complaints addressed today . Onset (ago): month(s) Severity: moderate Relieving factors: none Exacerbating factors: none Associated symptoms: Reports nausea and vomiting; Deny chest pain, dyspnea, headache(s), malaise or rash Treatments prior to arrival: none Related Data Home Medications ?Medication ?Instructions ?Recorded ?Confirmed albuterol sulfate 90 mcg/actuation inhalation 09/11/24 09/11/24 aerosol inhaler Previous Rx's ?Medication ?Instructions ?Recorded albuterol sulfate 90 mcg/actuation 2 inh inhalation Q6 H PRN shortness 09/11/24 aerosol inhaler (Ventolin HFA) of breath or wheezing # 8.5 grams prednisone 20 mg tablet 60 mg (3 x 20 mg) PO DAILY 5 days 09/11/24 #15 tabs sulfamethoxazole 800 1 tab PO BID 7 days #14 tabs 12/13/24 mg-trimethoprim 160 mg tablet (Bactrim DS) Allergies Allergy/AdvReac Type Severity Reaction Status Date / Time clonazepam (From Klonopin) Allergy ADR-Halluci Verified 09/11/24 15:48 nating codeine Allergy ALGY-Anaphy Verified 09/11/24 15:48 laxis promethazine Allergy ALGY-Redness Verified 09/11/24 15:48 of Skin tramadol Allergy ADR-Seizure Verified 09/11/24 15:48 Review of Systems 2 Const: Denies: fever(s), chills, body aches, fatigue or malaise Eyes: Denies: change in vision or blurry vision ENMT: Denies: throat pain, odynophagia, ear or mastoid pain, nasal discharge, nasal congestion or sinus pain Card: Denies: chest pain Resp: Denies: dyspnea GI: Reports: abdominal pain, nausea, vomiting and diarrhea; Denies: hematemesis, excessive flatus, hematochezia or melena : Denies: flank pain, difficulty voiding, dysuria, urinary frequency or urinary urgency Musc: Reports: neck pain; Denies: back pain, extremity pain, extremity swelling, joint pain or joint swelling Skin/Breast: Reports: other (breast abscess); Denies: rash Neuro: Denies: headache(s), numbness in extremities, weakness in extremities or sensory changes PFSH ED 2 PFSH: Medical History Substance abuse Obesity Irritable bowel syndrome Asthma Seizure disorder Anxiety and depression PTSD (post-traumatic stress disorder) Crohn's disease Surgical History History of placement of ear tubes History of myringotomy H/O adenoidectomy History of tonsillectomy H/O: hysterectomy History of appendectomy Family History Other Cancer Social History Smoking and tobacco/nicotine status: current every day tobacco/nicotine user Substance/Drug Use: current Physical Exam 2 Const: COMMON NORMALS: no acute distress, average body habitus, patient oriented x3, no limitations, healthy appearing, alert and well nourished G ENERAL APPEARANCE: cooperative ORIENTATION/CONSCIOUSNESS: Yes awake, Yes oriented to person, Yes oriented to place and Yes oriented to time HENMT: COMMON NORMALS: normocephalic, atraumatic and Normal external nose present HEAD & SCALP: normal to inspection, normocephalic and atraumatic F NAHOMI & SINUS: normal facial exam NOSE: Normal external nose present Eye: GENERAL EYE: appearance normal, both eyes and all related structures Neck/C-Spine: COMMON NORMALS: full ROM, no lymphadenopathy, no meningeal signs, no JVD and No carotid bruits GENERAL: Yes normal visual inspection, No anterior neck swelling and No submandibular swelling CERVICAL SPINE: Yes cervical ROM normal, No Cervical spine tenderness and No Paracervical muscle tenderness OTHER: dorsocervical fat pad is where patient describes a lump on the back of her neck NECK IMAGES: 1. feels like she has a lump here-no obvious thyroid nodule appreciated clinically Chest: Chest images (female): 1. small indurated non fluctuant abscess Resp: COMMON NORMALS: normal respiratory effort and clear to auscultation bilaterally AUSCULTATION: clear to auscultation bilaterally Cardio: COMMON NORMALS: no JVD, regular rate and regular rhythm RATE: r egular rate RHYTHM: regular rhythm GI: COMMON NORMALS: Normal to inspection, nondistended, normoactive bowel sounds present, Soft to palpation, No hepatosplenomegaly present and no masses INSPECTION: Yes normal to inspection AUSCULTATION: Yes normoactive bowel sounds PALPATION: Yes Soft to palpation, Yes Tenderness to palpation present (GI) (epigastric-non surgical exam), No Guarding due to palpation present (GI), No Rigid due to palpation and Yes No hepatosplenomegaly present : COMMON NORMALS: Yes no CVA tenderness BLADDER/KIDNEY EXAM: Yes no CVA tenderness Back/Pelvis: COMMON NORMALS: no CVA tenderness, thoracic and lumbar spine normal to inspection and no thoracic nor lumbar tenderness Extremity: COMMON NORMALS: normal to inspection GENERAL: Yes normal exam except as noted Neuro: SHAUNNA COMA SCALE: document GCS findings [place] coma scale eye opening: Spontaneous Shaunna coma scale verbal response: Orientated Shanuna coma scale motor response: Obey commands Shaunna coma scale total score: 15 COMMON NORMALS: patient oriented x3, CN's II-XII intact bilaterally, moves all extremities, no focal motor deficits, no sensory deficits noted and gait normal SENSORIUM/ORIENTATION: Yes alert, Yes oriented to person, Yes oriented to place and Yes oriented to time MENINGEAL SIGNS: Yes no meningeal signs S PEECH: speech normal GAIT: Yes Normal gait present Skin: COMMON NORMALS: no rashes or lesions noted GENERAL SKIN EXAM: no rashes or lesions noted Course 2 Vital Signs: Vital signs: Vital Signs Temperature 97.9 F 12/12/24 22:42 Pulse Rate 81 12/13/24 01:59 Respiratory Rate 14 12/13/24 01:59 Blood Pressure 120/70 12/13/24 01:59 Pulse Oximetry 99 12/13/24 01:59 Oxygen Delivery Me thod Room Air 12/13/24 00:30 MDM - General Adult Medical Decision Making Patient here for multiple medical complaints. We did try to tease out some of her main complaints and what she would like addressed from the emergency department today-she wants antibiotics for the developing breast abscess and evaluation of the neck pain. Sounds like the neck pain has been present for quite some time. She has not complained of a headache or fever. No stiff neck. I do not have any concern for life-threatening etiology such as dissection, deep space abscess, meningitis, discitis, epidural abscess. US of her thyroid was unremarkable. They do not see any obvious lymphadenopathy. She does have clinically a buffalo hump but she feels like there may be more to this. I feel this can be further seen by her primary care provider. Patient was complaining of abdominal pain. Her abdomen was nonsurgical. Vital signs are stable. We did get a CBC which was fairly unremarkable. Her CMP, lipase, TSH was initially resulted apart from AST/ALT and potassium which were pending. These results all then got erased and lab reported hemolysis. They had came to redraw patient but at this time it was approximately 0145 the morning the patient did not want to stay for lab results. I had initially told her I would contact her in the morning to go over these results but when I pulled up her chart-looks like the second round of labs were also hemolyzed. I did speak to the dairy and food laboratory assistant who was able to get me the posted results from last night apart from the AST/ALT/K+ and these were non-concerning. Attempted to contact patient but she did not answer and it would not allow me to leave a voicemail. We had discussed at time of discharge the importance of following up with her primary care provider for further management and we had discussed return precautions. Medical Records I reviewed the patient's medical records. Lab Data I reviewed the patient's lab results. 12/12/24 00:10 Radiology Impressions Thyroid Ultrasound 12/12/24 23:30 IMPRESSION: 1. No acute sonographic findings to explain the patient's symptoms. 2. Normal thyroid. Laboratory Results WBC 12.05 10^3/uL (3.29-11.43) H 12/12/24 00:10 RBC 5.13 10^6/uL (3.85-5.65) 12/12/24 00:10 Hgb 14.20 g/dL (11.27-16.99) 12/12/24 00:10 Hct 43.6 % (36-47) 12/12/24 00:10 MCV 85.0 fl (85-98) 12/12/24 00:10 MCH 27.7 pg (27-33) 12/12/24 00:10 MCHC 32.6 g/dL (30-55) 12/12/24 00:10 RDW 13.2 % (12.1-15.1) 12/12/24 00:10 Plt Count 286 10^3/cmm (157-399) 12/12/24 00:10 MPV 10.0 fL (7.4-10.4) 12/12/24 00:10 Neut % (Auto) 51.0 % 12/12/24 00:10 Lymph % (Auto) 41.9 % 12/12/24 00:10 Jenkins % (Auto) 6.1 % 12/12/24 00:10 Eos % (Auto) 0.1 % 12/12/24 00:10 Baso % (Auto) 0.7 % 12/12/24 00:10 Neut # (Auto) 6.15 10^3/uL (1.8-7.7) 12/12/24 00:10 Lymph # (Auto) 5.1 10^3/uL (0.8-4.8) H 12/12/24 00:10 Jenkins # (Auto) 0.7 10^3/uL (0.2-0.9) 12/12/24 00:10 Eos # (Auto) 0.0 10^3/uL (0.0-0.8) 12/12/24 00:10 Baso # (Auto) 0.1 10^3/uL (0.0-0.1) 12/12/24 00:10 Nucleated RBC % (auto) 0 % 12/12/24 00:10 Nucleated RBCs # 0.0 /100WBC 12/12/24 00:10 Sodium Cancelled 12/13/24 01:41 Potassium Cancelled 12/13/24 01:41 Chloride Cancelled 12/13/24 01:41 Carbon Dioxide Cancelled 12/13/24 01:41 Anion Gap Cancelled 12/13/24 01:41 BUN Cancelled 12/13/24 01:41 Creatinine Cancelled 12/13/24 01:41 GFR Calculation Cancelled 12/13/24 01:41 Glucose Cancelled 12/13/24 01:41 Calculated Osmolality Cancelled 12/13/24 01:41 Calcium Cancelled 12/13/24 01:41 Total Bilirubin Cancelled 12/13/24 01:41 AST Cancelled 12/13/24 01:41 ALT Cancelled 12/13/24 01:41 Alkaline Phosphatase Cancelled 12/13/24 01:41 Total Protein Cancelled 12/13/24 01:41 Albumin Cancelled 12/13/24 01:41 Globulin Cancelled 12/13/24 01:41 Lipase Cancelled 12/13/24 01:41 TSH Cancelled 12/13/24 01:41 Urine Color Yellow (Yellow) 12/13/24 00:35 Urine Appearance Clear (CLEAR) 12/13/24 00:35 Urine pH 7.0 (5-7) 12/13/24 00:35 Ur Specific [place] 1.024 (1.005-1.030) 12/13/24 00:35 Urine Protein Negative (Negative) 12/13/24 00:35 Urine Glucose (UA) Negative (Normal) 12/13/24 00:35 Urine Ketones Negative (Negative) 12/13/24 00:35 Urine Blood Negative (Negative) 12/13/24 00:35 Urine Nitrate Negative (Negative) 12/13/24 00:35 Urine Bilirubin Negative (Negative) 12/13/24 00:35 Urine Urobilinogen 1.0 mg/dL (Negative) 12/13/24 00:35 Ur Leukocyte Esterase Trace (Negative) A 12/13/24 00:35 Urine RBC 0-4 /hpf (0-2) H 12/13/24 00:35 Urine WBC 5-10 /hpf (0-5) H 12/13/24 00:35 Ur Squamous Epith Cells 5-10 /hpf (0-5) H 12/13/24 00:35 Amorphous Sediment Not Reportable 12/13/24 00:35 Urine Bacteria Trace /hpf (NONE) 12/13/24 00:35 Urine Mucus Trace /hpf 12/13/24 00:35 All radiology interpretation(s) finalized by discharge Discharge Plan Discharge Patient Disposition: Home Clinical Impression: Abscess of breast, Epigastric abdominal pain, Lump on neck Condition: Stable Prescriptions: New sulfamethoxazole-trimethoprim [Bactrim DS] 800-160 mg tablet 1 tab PO BID 7 Days Qty: 14 0RF No Action albuterol sulfate 90 mcg/actuation HFA aerosol inhaler inhalation prednisone 20 mg tablet 60 mg PO DAILY 5 Days Qty: 15 0RF albuterol sulfate [Ventolin HFA] 90 mcg/actuation HFA aerosol inhaler 2 inh inhalation Q6H PRN (Reason: shortness of breath or wheezing) Qty: 8.5 0RF Discharge Orders: Discharge ED (Routine); Ordered 12/13/24 Ordered By: Sudha Mehta Referrals: Angeli Shirley [Primary Care Provider, Advanced Pract Reg Nurse] Patient Instructions: Abdominal Pain (ED), Patient Portal & Tobias Instructions Activity Restrictions/Additional Instructions: As we discussed, we will place you on antibiotics for the developing abscess on your right breast. Some of your labs had hemolyzed (clotted) at the end of your visit. Lab was able to redraw these but you did not want to stay for these results. I will contact you in the morning if they are abnormal. Ultrasound of your thyroid and the remainder of the scan on your neck was unremarkable. We did discuss following up with your primary care provider regarding any additional symptoms you may have. Print Language: Faroese Coding Level of Care Code ED Remodeler for Tulio Quevedo
[2024-12-13 00:30] VITALS: BP 138/94; PULSE 79; RESP 18; O2SAT 98
[2024-12-13 00:38] LABS: Hematocrit 43.6 % (36-47); Hemoglobin 14.20 g/dL (11.27-16.99); Mean Corpuscular HGB Conc 32.6 g/dL (30-55); Mean Corpuscular Hemoglobin 27.7 pg (27-33); Mean Corpuscular Volume 85.0 fl (85-98); Nucleated Red Blood Cells % 0 %; Platelet Count 286 10^3/cmm (157-399); Red Blood Count 5.13 10^6/uL (3.85-5.65); White Blood Count 12.05 10^3/uL (3.29-11.43)
[2024-12-13 00:41] LABS: Glucose Urine UA Negative (Normal); Nitrate Urine Negative (Negative); Specific Gravity, Urine 1.024 (1.005-1.030)
[2024-12-13 01:23] LABS: Slide Review Slide Review Perform
[2024-12-13 01:23] LABS: Add Urine Microscopic? YES; UA Slide Review UA Slide Review Perf
[2024-12-13 01:59] VITALS: BP 120/70; PULSE 81; RESP 14; O2SAT 99
== END 2024-12-13 02:01 | disposition home or self-care (01) ==
PROVIDERS: Emergency Provider Physician Assistant; PCP Nurse Practitioner Family
DX: G06.0 Intracranial abscess and granuloma (principal); R10.13 Epigastric pain; R22.1 Localized swelling, mass and lump, neck; Z72.0 Tobacco use
CPT/HCPCS: 36415; 76536; 81001; 85025; 93005; 99284